=== PATIENT | female | born 1965 | race Caucasian/White ===

== ENCOUNTER 2016-02-23 06:38 | Day surgery (SDC) | payer MEDICARE, OTHER ==
[~2016-02-23] VITALS: Ht 152.4 cm; Wt 79.5 kg
[~2016-02-23 06:38] MED LIST: BUSP5TAB PO; CYCL1TAB29 PO; DICL75TA PO; HYDR25TA5 PO; LORA-392 PO; METH10TA PO; SERO25TA PO; SYMB160A INH; VALS1TAB65 PO; VENTAER INH
[2016-02-23] MEDS ORDERED: LACTATED RINGER'S 1000 ML IV SCH (07:00)
[2016-02-23] MEDS ORDERED: METOPROLOL TARTRATE 25 MG TAB PO PRN (07:00)
[2016-02-23] MEDS ORDERED: ACETAMINOPHEN 1000 MG/100 ML VIAL IV SCH (07:00)
[2016-02-23] MEDS ORDERED: SODIUM CHLORID 0.9% 500 ML IV SCH (07:00)
[2016-02-23] MEDS ORDERED: INSULIN HUMAN REGULAR 1,000 UNITS/10 ML VIAL SQ PRN (07:00)
[2016-02-23 07:08] VITALS: BP 135/68; PULSE 115; RESP 20; TEMP 98.3; O2SAT 95
[2016-02-23 07:16] VITALS: PULSE 94
[2016-02-23] MEDS ORDERED: OXYC-395 PO (07:33)
[2016-02-23] MEDS ORDERED: LIDOCAINE 1%/EPINEPHrine 1:100,000 SOLN 20 ML VIAL ONE (07:36)
[2016-02-23] MEDS ORDERED: BUPIVACAINE HCL PF 0.5% 30 ML VIAL ONE (07:37)
[2016-02-23] MEDS ORDERED: HYDROmorphone HCL PF 2 MG/ML VIAL ONE (08:05)
[2016-02-23] MEDS ORDERED: MIDAZOLAM HCL 2 MG/2 ML VIAL ONE (08:06)
== END 2016-02-23 09:19 | disposition home or self-care (01) ==
LOC: HSDC 06:38
PROVIDERS: ATTEND Surgery
DX: T81.89XA Other complications of procedures, not elsewhere classified, initial encounter (principal); I10 Essential (primary) hypertension; J44.9 Chronic obstructive pulmonary disease, unspecified; J45.909 Unspecified asthma, uncomplicated; Z53.09 Procedure and treatment not carried out because of other contraindication
CPT/HCPCS: G0463; J0131; J1170; J7120; 99211; J2250

== ENCOUNTER → 2016-03-01 | Day surgery (SDC) | payer MEDICARE, OTHER ==
[~2016-03-01] VITALS: Ht 154.9 cm; Wt 80.9 kg
[~2016-03-01] MED LIST changes: +*Lactated Ringer's INJ 1,000 ML ONE; +*MEPERIDINE 25 MG INJ VIAL PERIprocedural Use ONLY ONE; +*morphine SULFATE 8 MG/ML PERIprocedure ONLY ONE; +ACETAMINOPHEN 1000 MG/100 ML VIAL IV SCH; +AUGM875T3 PO; +BUPIVACAINE LIPOSOME PF 1.3% 20 ML VIAL INFIL ONE; +BUPIVACAINE/EPINEPHRINE 0.5% 50 ML VIAL ONE; +HYDROmorphone HCL PF 2 MG/ML VIAL ONE; +INSULIN HUMAN REGULAR 1,000 UNITS/10 ML VIAL SQ PRN; +KETO10 PO; +KETOROLAC TROMETHAMINE 30 MG/ML (IVP) VIAL IV PUSH ONE; +LACTATED RINGER'S 1000 ML IV SCH; +META28.34 PO; +METOPROLOL TARTRATE 25 MG TAB PO PRN; +MIDAZOLAM HCL 2 MG/2 ML VIAL ONE; +MORPHINE SULFATE 4 MG/ML INJ IV PRN; +NEOSTIGMINE 3 MG/3 ML SYR IV ONE; +ONDANSETRON HCL 4 MG/2 ML VIAL IV PRN; +ONDANSETRON HCL 4 MG/2 ML VIAL IV PUSH ONE; +OXYC-395 PO; +PROPOFOL 200 MG/20 ML AMP IV ONE; +SODIUM CHLORID 0.9% 500 ML IV SCH; +SODIUM CHLORIDE 5 ML FLUSH BID IVF SCH; +SODIUM CHLORIDE 5 ML FLUSH PRN IVF; +VITA10002 PO; +VITA500T49 PO; +fentaNYL CITRATE 250 MCG/5 ML AMP ONE; +oxyCODONE/ACETAMINOPHEN 5 MG/325 MG TAB PO PRN
[2016-03-01 07:34] VITALS: BP 117/68; PULSE 88; RESP 18; TEMP 98.6; O2SAT 98
[2016-03-01 09:50] VITALS: PULSE 98
--- NOTE | 2016-03-01 10:04 | PD.OP ---
cc: Magdaleno Philip MD; Jl Hobson MD Operative Report Date of Surgery: Mar 01, 2016 Preoperative Diagnosis: Infected abdominal wall wound Postoperative Diagnosis: Infected abdominal wall wound Procedure: Incision and drainage of abdominal wall wound; placement of wound VAC Anesthesia: General anesthesia Surgeon: Magdaleno Philip Immunologist(s): Dung Figueroa Operation and Findings: Operative findings and procedure: The patient has had a chronic draining wound in the lower portion of her midline incision from previous ruptured:. She has also developed induration but no inflammation around the previous right lower quadrant colostomy site which it healed well after closure of her colostomy. She was found to have a tunneled connection between the 2 points with approximately 25-30 mL's of purulence. The patient was brought to the operating room and after satisfactory general anesthesia was obtained the abdomen was prepped and draped in usual sterile fashion. 0.5% Exparel was used for local anesthesia. An elliptical skin incision was made around the small opening in the lower midline incision. Exploration failed to reveal any superior connection but there was a connection to the indurated area. It was necessary then to open up the previous transverse right lower quadrant wound and a most of the purulence was expressed at that point. The tissue was debrided hemostasis was obtained as completely as possible. Further local anesthesia was instilled. A small wound VAC sponge was cut to the appropriate shape and both wounds were packed with a sponge and a bridge sponge was created to complete the suction. The wound VAC dressing was then placed and secured. The suction was connected with excellent retraction of the wounds. The patient was then awakened and taken from the operating room, in satisfactory condition having tolerated the procedure without problem. Estimated blood loss was less than 20 mL's. The isthmic, sponge, needle counts were reported as being correct 2 at the end of the procedure. Magdaleno Philip MD Mar 01, 2016 10:04
[2016-03-01 10:30] VITALS: PULSE 72
[2016-03-01 11:52] VITALS: BP 105/56; PULSE 90; RESP 18; TEMP 98.4; O2SAT 98
== END | disposition home or self-care (01) ==
LOC: HSDC 06:34
PROVIDERS: ATTEND Surgery
DX: T81.4XXA Infection following a procedure, initial encounter (principal); B95.4 Other streptococcus as the cause of diseases classified elsewhere
CPT/HCPCS: 00400; 10180; 87070; 87185; 87205; C9290; J0131; J1170; J1885; J2175; J2250; J2270; J2405; J2710; J3010; J7120

== ENCOUNTER → 2016-05-26 | Outpatient (CLI) | payer MEDICARE, OTHER ==
[~2016-05-26] MED LIST changes: -*Lactated Ringer's INJ 1,000 ML ONE; -*MEPERIDINE 25 MG INJ VIAL PERIprocedural Use ONLY ONE; -*morphine SULFATE 8 MG/ML PERIprocedure ONLY ONE; -ACETAMINOPHEN 1000 MG/100 ML VIAL IV SCH; -BUPIVACAINE LIPOSOME PF 1.3% 20 ML VIAL INFIL ONE; -BUPIVACAINE/EPINEPHRINE 0.5% 50 ML VIAL ONE; +DIATRIZOATE MEGLUM/DIATRIZOATE SOD 120 ML BTL (for RAD DIAG) RECTAL ONE; -HYDROmorphone HCL PF 2 MG/ML VIAL ONE; -INSULIN HUMAN REGULAR 1,000 UNITS/10 ML VIAL SQ PRN; -KETOROLAC TROMETHAMINE 30 MG/ML (IVP) VIAL IV PUSH ONE; -LACTATED RINGER'S 1000 ML IV SCH; -METOPROLOL TARTRATE 25 MG TAB PO PRN; -MIDAZOLAM HCL 2 MG/2 ML VIAL ONE; -MORPHINE SULFATE 4 MG/ML INJ IV PRN; -NEOSTIGMINE 3 MG/3 ML SYR IV ONE; -ONDANSETRON HCL 4 MG/2 ML VIAL IV PRN; -ONDANSETRON HCL 4 MG/2 ML VIAL IV PUSH ONE; -PROPOFOL 200 MG/20 ML AMP IV ONE; -SODIUM CHLORID 0.9% 500 ML IV SCH; -SODIUM CHLORIDE 5 ML FLUSH BID IVF SCH; -SODIUM CHLORIDE 5 ML FLUSH PRN IVF; -VALS1TAB65 PO; -fentaNYL CITRATE 250 MCG/5 ML AMP ONE; -oxyCODONE/ACETAMINOPHEN 5 MG/325 MG TAB PO PRN
--- NOTE | 2016-05-26 13:59 | RADRPT ---
EXAM DATE/TIME: 05/26/2016 11:04 [facility] COMPARISON: No previous studies available for comparison. INDICATIONS : Evaluate colon for ileostomy reversal. Diverting ileostomy. FLUORO TIME: 1.3 minutes IMAGE COUNT: 13 CONTRAST: 1. G[facility]view MEDICAL HISTORY : Hypertension. SURGICAL HISTORY : Colostomy. Bowel resection with ileostomy. ENCOUNTER: Initial ACUITY: 7 - 11 months PAIN SCORE: 0/10 LOCATION: Abdomen, lower quadrant.. FINDINGS: Diverting ileostomy is present right lower quadrant. Retrograde water-soluble contrast per rectum is delivered to the stoma. The patient has had partial colectomy down to the descending colon. The an astomosis between ileum and colon is smooth without evidence of stricture. There are a few moderate size diverticula in the sigmoid colon. No radiographic of diverticulitis. CONCLUSION: No evidence of stricture or leak. Tr Curiel MD on May 26, 2016 at 13:55 Board Certified Radiologist. This report was verified electronically.
== END ==
LOC: HRAD 10:42
PROVIDERS: ATTEND Surgery
DX: Z43.2 Encounter for attention to ileostomy (principal)
CPT/HCPCS: 74270; Q9963

== ENCOUNTER 2016-06-02 12:32 | Inpatient (IN) | payer MEDICARE, OTHER ==
[~2016-06-02] VITALS: Ht 154.9 cm; Wt 76.0 kg
[~2016-06-02 12:32] MED LIST changes: -AUGM875T3 PO; -DIATRIZOATE MEGLUM/DIATRIZOATE SOD 120 ML BTL (for RAD DIAG) RECTAL ONE; -KETO10 PO; -META28.34 PO; -VITA10002 PO; -VITA500T49 PO
[2016-06-06] MEDS ORDERED: META28.34 PO (15:16)
[2016-06-06] MEDS ORDERED: VITA500T49 PO (15:16)
[2016-06-07 07:16] VITALS: BP 119/77; PULSE 83; RESP 22; TEMP 97.8; O2SAT 97
[2016-06-07] MEDS ORDERED: ceFAZolin 2 GM PREMIX 50 ML IV SCH (07:30)
[2016-06-07] MEDS ORDERED: ACETAMINOPHEN 1000 MG/100 ML VIAL IV SCH ×2 (07:30→14:00)
[2016-06-07] MEDS ORDERED: CHLORHEXIDINE GLUCONATE 2 % 1 PACK (2 CLOTHS) TOPICAL PRN (07:45)
[2016-06-07] MEDS ORDERED: LACTATED RINGER'S 1000 ML IV PRN (07:45)
[2016-06-07] MEDS ORDERED: METOPROLOL TARTRATE 25 MG TAB PO PRN (07:45)
[2016-06-07] MEDS ORDERED: SODIUM CHLORID 0.9% 500 ML IV PRN (07:45)
[2016-06-07] MEDS ORDERED: POVIDONE IODINE 5% (ANTISEPSIS KIT) 4 APPLICATIONS EACH NARE PRN (07:45)
[2016-06-07] MEDS ORDERED: INSULIN HUMAN REGULAR 1,000 UNITS/10 ML VIAL SQ PRN (07:45)
[2016-06-07] MEDS ORDERED: metroNIDAZOLE 500 MG INJ 100 ML IV ONE (08:05)
[2016-06-07] MEDS ORDERED: BUPIVACAINE HCL PF 0.5% 30 ML VIAL NERV BLOCK ONE (09:26)
[2016-06-07] MEDS ORDERED: BUPIVACAINE LIPOSOME PF 1.3% 20 ML VIAL ONE (09:27)
[2016-06-07] MEDS ORDERED: ceFAZolin INJ 1,000 MG VIAL ONE ×2 (10:05→14:59)
[2016-06-07] MEDS ORDERED: DEXAMETHASONE SOD PHOS 4 MG/ML VIAL ONE (10:38)
[2016-06-07] MEDS ORDERED: MIDAZOLAM HCL 2 MG/2 ML VIAL ONE (10:38)
[2016-06-07] MEDS ORDERED: fentaNYL CITRATE 250 MCG/5 ML AMP ONE (10:42)
[2016-06-07] MEDS ORDERED: STERILE WATER FOR INJ 20 ML VIAL ONE (11:05)
[2016-06-07] MEDS ORDERED: NEOSTIGMINE 3 MG/3 ML SYR IV ONE (12:00)
[2016-06-07] MEDS ORDERED: ONDANSETRON HCL 4 MG/2 ML VIAL IV PUSH ONE (12:00)
[2016-06-07] MEDS ORDERED: LACTATED RINGER'S 1000 ML INJ 1,000 ML IV ONE (12:00)
[2016-06-07] MEDS ORDERED: BUPIVACAINE LIPOSOME PF 1.3% 20 ML VIAL NERV BLOCK ONE (12:00)
[2016-06-07] MEDS ORDERED: PROPOFOL 200 MG/20 ML AMP IV ONE (12:00)
[2016-06-07] MEDS ORDERED: *MEPERIDINE 25 MG INJ VIAL PERIprocedural Use ONLY ONE (12:54)
[2016-06-07] MEDS ORDERED: *morphine SULFATE 8 MG/ML PERIprocedure ONLY ONE ×3 (13:00→13:17)
[2016-06-07] MEDS ORDERED: *HYDROmorphone PF 1 MG VIAL PERIprocedural Use ONLY ONE ×3 (13:26→13:48)
[2016-06-07] MEDS ORDERED: DO NOT ADM ANY ANTICOAGULANT DRUGS PRN (13:30)
[2016-06-07] MEDS ORDERED: *ENALAPRILAT 1.25 MG/ML VIAL PERIprocedural Use ONLY ONE ×2 (13:36→15:31)
[2016-06-07] MEDS ORDERED: KETOROLAC TROMETHAMINE 30 MG/ML (IVP) VIAL ONE (13:48)
[2016-06-07] MEDS ORDERED: Post-op Orders (for Pharmacy) MISC XX ONE (14:00)
[2016-06-07] MEDS ORDERED: ACETAMINOPHEN 325 MG TAB PO PRN (14:00)
[2016-06-07] MEDS: KETOROLAC TROMETHAMINE 30 MG/ML (IVP) VIAL IVP SCH (14:00)
[2016-06-07] MEDS ORDERED: METOCLOPRAMIDE HCL 10 MG/2 ML VIAL IV PRN (14:00)
[2016-06-07] MEDS ORDERED: NALOXONE HCL 0.4 MG/ML AMP IV PRN (14:00)
[2016-06-07] MEDS ORDERED: SODIUM CHLORIDE 0.9% FLUSH 10 ML FLUSH IV FLUSH PRN (14:00)
[2016-06-07] MEDS ORDERED: PROMETHAZINE HCL 25 MG SUPP RECTAL PRN (14:00)
--- NOTE | 2016-06-07 14:16 | PD.OP ---
cc: Magdaleno Philip MD; Jl Hobson MD Operative Report Date of Surgery: Jun 07, 2016 Preoperative Diagnosis: Status post diverting ileostomy Postoperative Diagnosis: Status post diverting ileostomy Procedure: Closure of diverting ileostomy Anesthesia: Gen. endotracheal Surgeon: Magdaleno Philip Collective Bargaining Specialist(s): Dayana Carver, MS 3 Operation and Findings: Operative findings: The patient was found to have a normal-appearing ileostomy with slight excoriation in the skin around it. No other abnormalities were noted. She had moderate adhesions to the anterior abdominal wall. Operative procedure: The patient is brought to the operating room and after having undergone placement of a bilateral TA P block. Satisfactory general endotracheal anesthesia was obtained, the abdomen was prepped and draped in the usual sterile fashion. An elliptical skin incision was made around the ileostomy and then carried down to the fascia by cautery, blunt dissection and sharp dissection. Once the fascial borders and then identified the ileostomy was dissected free from the fascial and muscle edges, with care being taken to preserve the bowel. Once all the adhesions had been taken down the ileostomy was elevated further into the wound and other adhesions were taken down. The mesentery was divided near the end of the loop using the cautery as well as 2-0 Vicryl ties. The bowel was then divided on the proximal distal aspect using a DARRYL 75 blue load stapler. The ileostomy was sent for permanent pathology. The ends of the bowel brought into close approximation and the antimesenteric border of the staple lines were resected. A DARRYL 75 blue load stapler was inserted down each limb and then secured and fired creating a functional and end anastomosis. The enterotomy was checked and found to be hemostatic and the staple lines. The enterotomy was then closed with a TA 60 blue load stapler. The mesenteric defect was closed with interrupted 3-0 silk sutures. The new anastomosis was then placed back within the peritoneal cavity without problem. Hemostasis was checked for and found be satisfactory. The fascia was reapproximated with interrupted #1 PDS sutures. The wound was then irrigated and the skin closed with mami. Sterile dressing was placed after which the patient was awakened and taken from the operating room, satisfactory condition, having tolerated procedure without problem. Estimated blood loss was less than 30 mL's. The isthmus, sponge, needle counts were reported as being correct 2 at the end of procedure. Magdaleno Philip MD Jun 07, 2016 14:16
[2016-06-07] MEDS: ACETAMINOPHEN 1000 MG/100 ML VIAL IV SCH ×2 (15:00→20:20)
[2016-06-07] MEDS: PANTOPRAZOLE SODIUM 40 MG VIAL IV SCH (15:00)
[2016-06-07] MEDS: D5-1/2 NS + KCL 20 MEQ INJ 1,000 ML IV SCH ×2 (15:00→23:05)
[2016-06-07] MEDS: HYDROmorphone HCL PF 1 MG/ML VIAL IV PRN ×3 (15:36→17:42)
[2016-06-07] MEDS ORDERED: DIMETHICONE/OXYBENZONE/PADMIATE LIP BALM 4.25 GM TOPICAL ONE (15:52)
[2016-06-07] MEDS ORDERED: ONDANSETRON HCL 4 MG/2 ML VIAL IV PRN (18:00)
[2016-06-07] MEDS ORDERED: ALBUTEROL SULFATE 90 MCG/ACT HFA 18 GM INHALER INH PRN (18:15)
[2016-06-07] MEDS ORDERED: HYDROCHLOROTHIAZIDE 25 MG TAB PO PRN (18:15)
[2016-06-07] MEDS ORDERED: PSYLLIUM FIBER SF/GF 6 GM POWD PKT PO PRN (18:30)
[2016-06-07] MEDS: METHADONE HCL 10 MG TAB PO SCH (18:40)
[2016-06-07] MEDS: busPIRone HCL 5 MG TAB PO SCH (18:40)
[2016-06-07] MEDS: CYCLOBENZAPRINE HCL 10 MG TAB PO SCH (18:40)
[2016-06-07] MEDS: SODIUM CHLORIDE 0.9% FLUSH 10 ML FLUSH IV FLUSH SCH (21:00)
[2016-06-07] MEDS: QUEtiapine FUMARATE 25 MG TAB PO SCH (21:00)
[2016-06-07] MEDS: DICLOFENAC SODIUM 75 MG DELAYED RELEASE TAB PO SCH (21:00)
[2016-06-07] MEDS: BUDESONIDE-FORMOTEROL 160/4.5 MCG INHALER INH SCH (21:00)
[2016-06-07 21:59] VITALS: BP 138/74; PULSE 71; RESP 20; TEMP 99.3; O2SAT 99
[2016-06-08] VITALS (7 sets, daily range): BP systolic 107–142; BP diastolic 58–79; PULSE 88–105; RESP 16–20; TEMP 96.7–98.9; O2SAT 92–97
[2016-06-08] MEDS: KETOROLAC TROMETHAMINE 30 MG/ML (IVP) VIAL IVP SCH ×4 (01:47→21:50)
[2016-06-08] MEDS: ACETAMINOPHEN 1000 MG/100 ML VIAL IV SCH ×2 (01:49→08:46)
[2016-06-08] MEDS: HYDROmorphone HCL PF 1 MG/ML VIAL IV PRN (03:03)
[2016-06-08 05:55] LABS: AUTOMATED NEUTROPHIL # 8.9 TH/MM3 (1.8-7.7); BASOPHIL # 0.1 TH/MM3 (0-0.2); BASOPHIL % 0.6 % (0.0-2.0); EOSINOPHIL % 0.1 % (0.0-4.0); HEMATOCRIT 35.4 % (35.0-46.0); LYMPH % 24.7 % (9.0-44.0); LYMPHOCYTE # 3.3 TH/MM3 (1.0-4.8); MEAN CORPUSCULAR HEMOGLOBIN 26.5 PG (27.0-34.0); MEAN CORPUSCULAR HGB CONC 31.9 % (32.0-36.0); MONO % 8.6 % (0.0-8.0); PLATELET COUNT 257 TH/MM3 (150-450); RED BLOOD COUNT 4.26 MIL/MM3 (4.00-5.30); RED CELL DISTRIBUTION WIDTH 15.9 % (11.6-17.2); WHITE BLOOD COUNT 13.5 TH/MM3 (4.0-11.0)
[2016-06-08 06:04] LABS: HEMO FLAGS AUTO DIFF
[2016-06-08 07:09] LABS: OVALOCYTES 1+ (NORMAL); SCAN/DIFF AUTO DIFF CONFIRMED
[2016-06-08] MEDS: DICLOFENAC SODIUM 75 MG DELAYED RELEASE TAB PO SCH ×2 (08:45→19:52)
[2016-06-08] MEDS: METHADONE HCL 10 MG TAB PO SCH ×3 (08:46→18:11)
[2016-06-08] MEDS: CYANOCOBALAMIN 1,000 MCG TAB PO SCH (08:46)
[2016-06-08] MEDS: SODIUM CHLORIDE 0.9% FLUSH 10 ML FLUSH IV FLUSH SCH ×2 (08:47→21:00)
[2016-06-08] MEDS: BUDESONIDE-FORMOTEROL 160/4.5 MCG INHALER INH SCH ×2 (08:53→21:00)
[2016-06-08] MEDS: D5-1/2 NS + KCL 20 MEQ INJ 1,000 ML IV SCH (12:24)
[2016-06-08] MEDS: PANTOPRAZOLE SODIUM 40 MG VIAL IV SCH (15:50)
--- NOTE | 2016-06-08 17:30 | HHI.PR ---
Subjective Subjective Notes Patient is feeling very well with minimal pain. She feels like she will be passing gas 7. She had one small very minimal amount of stool. She has been walking in the hicks with minimal problem. Objective Vitals/I&O Vital Signs Date Time Temp Pulse Resp B/P Pulse Ox O2 Delivery O2 Flow Rate FiO2 06/08/16 16:00 98.3 88 16 118/67 97 06/08/16 08:24 21 06/07/16 19:30 Nasal Cannula 2 Labs Laboratory Tests Test 06/08/16 04:46 White Blood Count 13.5 Red Blood Count 4.26 Hemoglobin 11.3 Hematocrit 35.4 Mean Corpuscular Volume 83.0 Mean Corpuscular Hemoglobin 26.5 Mean Corpuscular Hemoglobin 31.9 Concent Red Cell Distribution Width 15.9 Platelet Count 257 Mean Platelet Volume 8.6 Neutrophils (%) (Auto) 66.0 Lymphocytes (%) (Auto) 24.7 Monocytes (%) (Auto) 8.6 Eosinophils (%) (Auto) 0.1 Basophils (%) (Auto) 0.6 Neutrophils # (Auto) 8.9 Lymphocytes # (Auto) 3.3 Monocytes # (Auto) 1.2 Eosinophils # (Auto) 0.0 Basophils # (Auto) 0.1 CBC Comment AUTO DIFF Differential Comment AUTO DIFF CONFIRMED Ovalocytes 1+ Sodium Level 140 Potassium Level 4.0 Chloride Level 107 Carbon Dioxide Level 26.0 Anion Gap 7 Blood Urea Nitrogen 10 Creatinine 0.89 Estimat Glomerular Filtration 67 Rate Random Glucose 106 Calcium Level 8.5 Cardiovascular: Regular Lungs: Clear Abdomen: Non-distended, Post-op tenderness Extremities: No edema A/P Assessment and Plan Impression: Postop day #1 status post closure of ileostomy. She is doing extremely well with no problems to this point. Plan: IV fluids will be decreased; her Watt catheter has been removed; she will be placed on a full liquid diet. Magdaleno Philip MD Jun 08, 2016 17:30
[2016-06-08] MEDS: busPIRone HCL 5 MG TAB PO SCH (19:50)
[2016-06-08] MEDS: CYCLOBENZAPRINE HCL 10 MG TAB PO SCH (19:52)
[2016-06-08] MEDS: QUEtiapine FUMARATE 25 MG TAB PO SCH (19:53)
[2016-06-08] MEDS: LORazepam 0.5 MG TAB PO PRN (21:50)
[2016-06-09] VITALS: BP 140/80; PULSE 84; RESP 20; TEMP 97; O2SAT 95
[2016-06-09] MEDS: HYDROmorphone HCL PF 1 MG/ML VIAL IV PRN ×2 (01:39→17:02)
[2016-06-09] MEDS: KETOROLAC TROMETHAMINE 30 MG/ML (IVP) VIAL IVP SCH ×4 (02:54→20:34)
[2016-06-09] MEDS: D5-1/2 NS + KCL 20 MEQ INJ 1,000 ML IV SCH ×2 (06:21→13:51)
[2016-06-09 08:00] VITALS: BP 110/68; PULSE 79; RESP 20; TEMP 97.1; O2SAT 99
[2016-06-09] MEDS: SODIUM CHLORIDE 0.9% FLUSH 10 ML FLUSH IV FLUSH SCH ×2 (08:13→20:34)
[2016-06-09] MEDS: BUDESONIDE-FORMOTEROL 160/4.5 MCG INHALER INH SCH ×2 (08:14→20:35)
[2016-06-09] MEDS: DICLOFENAC SODIUM 75 MG DELAYED RELEASE TAB PO SCH ×2 (08:16→20:33)
[2016-06-09] MEDS: METHADONE HCL 10 MG TAB PO SCH ×3 (08:16→17:39)
[2016-06-09] MEDS: CYANOCOBALAMIN 1,000 MCG TAB PO SCH (08:16)
[2016-06-09 12:00] VITALS: BP 126/86; PULSE 101; RESP 20; TEMP 97.1; O2SAT 98
--- NOTE | 2016-06-09 12:04 | HHI.PR ---
Subjective Subjective Notes The patient is passing a large amount of flatus. She has not yet had a bowel movement. She is tolerating full liquid diet without nausea or vomiting. Her pain is well controlled. Objective Vitals/I&O Vital Signs Date Time Temp Pulse Resp B/P Pulse Ox O2 Delivery O2 Flow Rate FiO2 06/09/16 08:00 97.1 79 20 110/68 99 06/08/16 08:24 21 06/07/16 19:30 Nasal Cannula 2 Cardiovascular: Regular Lungs: Clear Abdomen: Non-distended, Non-tender, Post-op tenderness, BS normal A/P Assessment and Plan Impression: Postop day #2 status post closure of ileostomy. She is doing extremely well with no problems to this point. Plan: Her IV will be saline locked. She'll be placed on a regular diet. She has been encouraged to ambulate even more. Magdaleno Philip MD Jun 09, 2016 12:04
[2016-06-09] MEDS: PANTOPRAZOLE SODIUM 40 MG VIAL IV SCH (13:51)
[2016-06-09 16:00] VITALS: BP 130/60; PULSE 103; RESP 19; TEMP 97.8; O2SAT 96
[2016-06-09 20:00] VITALS: BP 115/65; PULSE 102; RESP 18; TEMP 96.7; O2SAT 96
[2016-06-09] MEDS: QUEtiapine FUMARATE 25 MG TAB PO SCH (20:33)
[2016-06-09] MEDS: CYCLOBENZAPRINE HCL 10 MG TAB PO SCH (20:33)
[2016-06-09] MEDS: busPIRone HCL 5 MG TAB PO SCH (20:34)
[2016-06-09] MEDS: LORazepam 0.5 MG TAB PO PRN (22:27)
[2016-06-10 00:03] VITALS: BP 115/56; PULSE 92; RESP 18; TEMP 96.5; O2SAT 98
[2016-06-10] MEDS: KETOROLAC TROMETHAMINE 30 MG/ML (IVP) VIAL IVP SCH ×3 (02:44→14:12)
[2016-06-10] MEDS: D5-1/2 NS + KCL 20 MEQ INJ 1,000 ML IV SCH (02:48)
[2016-06-10 07:59] VITALS: BP 126/60; PULSE 93; RESP 16; TEMP 96.6; O2SAT 95
[2016-06-10] MEDS: CYANOCOBALAMIN 1,000 MCG TAB PO SCH (08:24)
[2016-06-10] MEDS: DICLOFENAC SODIUM 75 MG DELAYED RELEASE TAB PO SCH (08:24)
[2016-06-10] MEDS: METHADONE HCL 10 MG TAB PO SCH ×2 (08:24→14:10)
[2016-06-10] MEDS: SODIUM CHLORIDE 0.9% FLUSH 10 ML FLUSH IV FLUSH SCH (08:29)
[2016-06-10] MEDS: BUDESONIDE-FORMOTEROL 160/4.5 MCG INHALER INH SCH (08:30)
[2016-06-10] MEDS: HYDROmorphone HCL PF 1 MG/ML VIAL IV PRN (10:55)
[2016-06-10 12:00] VITALS: BP 128/69; PULSE 102; RESP 17; TEMP 97.4; O2SAT 98
[2016-06-10] MEDS: PANTOPRAZOLE SODIUM 40 MG VIAL IV SCH (14:12)
--- NOTE | 2016-06-10 15:09 | HHI.PR ---
Subjective Subjective Notes The patient continues to feel well. She is tolerating a regular diet without problem. Her pain is well controlled and is minimal at this point. She has had several relatively loose bowel movements although not diarrhea. She continues to pass large amounts of flatus. She is ready and anxious to go home. Objective Vitals/I&O Vital Signs Date Time Temp Pulse Resp B/P Pulse Ox O2 Delivery O2 Flow Rate FiO2 06/10/16 12:00 97.4 102 17 128/69 98 06/08/16 08:24 21 06/07/16 19:30 Nasal Cannula 2 Cardiovascular: Regular Lungs: Clear Abdomen: Non-distended, Post-op tenderness Extremities: No edema Wound Wound : Wound Location: Abdomen Appearance: Clean & Dry A/P Assessment and Plan Impression: Postop day #3 status post closure of ileostomy. She is tolerating a regular diet and having minimally formed bowel movements. She has had no complications to her surgery. Plan: Discharge today. I'll see her back in the office in 10-14 days. She understands she should call the office should she have any increasing abdominal pain, nausea and vomiting, or erythema of the wound. Magdaleno Philip MD Jun 10, 2016 15:09
--- NOTE | 2016-06-10 15:14 | HHI.DS ---
Discharge Summary Admission Date Jun 07, 2016 at 06:59 Discharge Date: Jun 10, 2016 Admitting Diagnosis Status post ileostomy Procedures 06/07/2016: Reversal of ileostomy Brief History The patient is a 50-year-old lady who proximal 7 or 8 months ago underwent emergency exploratory laparotomy for incarcerated and strangulated descending colon which was found to be in a relatively small abdominal wall hernia where previous colostomy had been. She also had a perforation of her cecum. She subsequently underwent extensive colectomy with a primary ileocolic anastomosis in the descending colon. A diverting loop ileostomy was brought out for protection. She was admitted this time for elective closure of the ileostomy. CBC/BMP: 06/08/16 0446 06/08/16 0446 Significant Findings Laboratory Tests Test 06/08/16 04:46 White Blood Count 13.5 TH/MM3 (4.0-11.0) Hemoglobin 11.3 GM/DL (11.6-15.3) Mean Corpuscular Hemoglobin 26.5 PG (27.0-34.0) Mean Corpuscular Hemoglobin 31.9 % Concent (32.0-36.0) Monocytes (%) (Auto) 8.6 % (0.0-8.0) Neutrophils # (Auto) 8.9 TH/MM3 (1.8-7.7) Monocytes # (Auto) 1.2 TH/MM3 (0-0.9) Ovalocytes 1+ (NORMAL) Estimat Glomerular Filtration 67 ML/MIN (>89) Rate PE at Discharge Physical exam and discharge was completely benign with totally benign abdominal exam and a wound that was healing well without evidence of infection. Hospital Course The patient underwent a non-complicated procedure and returned quickly to normal activities within 24-36 hours. She was begun on a clear liquid diet the day after surgery and advanced to full liquids the second day and later to a regular diet. She was doing well enough to be discharged on the third day as she was tolerating a regular diet, having bowel movements, was seen to be afebrile with otherwise normal vital signs and a benign exam. Pt Condition on Discharge: Good Discharge Disposition: Discharge Home Discharge Instructions DIET: Follow Instructions for: As Tolerated, No Restrictions Activities you can perform: Regular-No Restrictions Magdaleno Philip MD Jun 10, 2016 15:14
== END 2016-06-10 16:37 | disposition home or self-care (01) | DRG 331 ==
LOC: HSDI 06-07 06:59 → N07A 06-07 20:33
PROVIDERS: ADMIT Surgery; ATTEND Surgery
PROC: 0DQB0ZZ Repair Ileum, Open Approach (ICD-10-PCS; principal; 2016-06-07 10:41)
DX: Z43.2 Encounter for attention to ileostomy (principal); K66.0 Peritoneal adhesions (postprocedural) (postinfection)
CPT/HCPCS: 80048; 85025; 88304; 88305; 94150; C9113; C9290; J0131; J0690; J1100; J1170; J1885; J2175; J2250; J2270; J2405; J2710; J3010; J3480; J7120

== ENCOUNTER 2016-06-17 09:58 | Inpatient (IN) | payer MEDICARE, OTHER ==
[~2016-06-17] VITALS: Ht 154.9 cm; Wt 75.0 kg
[~2016-06-17 09:58] MED LIST changes: +META28.34 PO; +VITA500T49 PO
[2016-06-17 10:00] VITALS: BP 108/54; PULSE 130; RESP 20; TEMP 97.7; O2SAT 96
[2016-06-17] MEDS ORDERED: SODIUM CHLOR 0.9% 1000 ML INJ 1,000 ML IV SCH (10:25)
[2016-06-17] MEDS ORDERED: ONDANSETRON HCL 4 MG/2 ML VIAL IVP ONE (10:30)
[2016-06-17] MEDS ORDERED: SODIUM CHLORIDE 0.9% FLUSH 10 ML FLUSH IV FLUSH PRN ×2 (10:30→15:45)
--- NOTE | 2016-06-17 10:51 | PD ---
HPI Chief Complaint: Abdominal Pain Time Seen by Provider: 10:16 Travel History International Travel<30 days: No Contact w/Intl Traveler<30days: No Traveled to known affect area: No History of Present Illness HPI So 50-year-old woman who presents to the emergency department complaining of abdominal discomfort and vomiting. She is a history of perforated colon related to colitis and underwent an exploratory laparoscopy October 21, 2015. She had trouble with abdominal wall wounds following this. She had an ileostomy. She was doing relatively well and had her ileostomy taken down June [address] rojas. Following this she did well in the hospital but then reportedly was having trouble at home. She describes feelings of bloating early -stage high 80 and nausea and queasiness. She saw Dr. rojas yesterday and he ordered lab work. She then vomited one time last night. She spoke to Dr. rojas this morning who reported that her lap shouldn't dehydration recommend she come to the emergency department for imaging and labs. Of note, patient had a perforated colon one time in the past and had a colostomy in the remote past as well. History Past Medical History Narrative Medical COPD Morbid obesity Hypertension Osteoarthritis Chronic pain, on chronic opiates Menopausal: Yes Social History Alcohol Use: No (hx 3-4 BEERS DAILY , hasn't drank in two months) Tobacco Use: No Allergies-Medications (Allergen,Severity, Reaction): Coded Allergies: No Known Allergies (Unverified , 06/07/16) Reported Meds & Prescriptions Reported Meds & Active Scripts Active Reported Ketorolac (Ketorolac Tromethamine) 10 Mg Tab 10 Mg PO QID 5 Days Vitamin B-12 (Cyanocobalamin) 1,000 Mcg Tab 3,000 Mcg PO DAILY Metamucil Smooth Texture (Psyllium Hydrophilic Mucilloid) 28.3 % Pow 1 Scoop PO BID PRN 1 rounded TEASPOON in 8 oz of liquid at the first sign of irregularity. Oxycodone (Oxycodone HCl) 10 Mg Tab 10 Mg PO TID Hydrochlorothiazide 25 Mg Tab 25 Mg PO PRN Ventolin Hfa 18 GM Inh (Albuterol Sulfate) 90 Mcg/Act Aer 2 Puff INH Q4-6H PRN Symbicort Inh (Budesonide/Formoterol Fumarate) 160-4.5 Mcg/Act Aero 2 Puff INH Q12HR Buspirone (Buspirone HCl) 5 Mg Tab 5 Mg PO HS Flexeril (Cyclobenzaprine HCl) 10 Mg Tab 10 Mg PO HS Diclofenac Sodium DR (Diclofenac Sodium) 75 Mg Tabdr 75 Mg PO BID Ativan (Lorazepam) 0.5 Mg Tab 0.5 Mg PO HS PRN Methadone (Methadone HCl) 10 Mg Tab 20 Mg PO TID Seroquel (Quetiapine Fumarate) 25 Mg Tab 25-50 Mg PO HS Review of Systems Except as stated in HPI: all other systems reviewed are Neg Physical Exam Narrative GENERAL: 50-year-old woman, no acute distress. SKIN: Focused skin assessment warm/dry. HEAD: Atraumatic. Normocephalic. EYES: Pupils equal and round. No scleral icterus. No injection or drainage. ENT: No nasal bleeding or discharge. Mucous membranes pink and moist. NECK: Trachea midline. No JVD. CARDIOVASCULAR: Regular rate and rhythm. No murmur appreciated. RESPIRATORY: No accessory muscle use. Clear to auscultation. Breath sounds equal bilaterally. GASTROINTESTINAL: Abdomen is obese. There is multiple surgical scars including a midline scar in the left four-quadrant scars that are well-healed. On the right side there is a horizontal scar, approximately 10-15 cm, with mami in place, that will approximated. There is no charring erythema and redness. There is firmness to the abdomen of 1 of the most recent incision with some palpable lumpy firmness of these Are the abdomen. Not particularly tender. The abdomen itself is not overtly distended. Bowel sounds are nearly absent. MUSCULOSKELETAL: No obvious deformities. No edema. NEUROLOGICAL: Awake and alert. No obvious cranial nerve deficits. Motor grossly within normal limits. Normal speech. PSYCHIATRIC: Appropriate mood and affect; insight and judgment normal. Data Data Last Documented VS Vital Signs Date Time Temp Pulse Resp B/P Pulse Ox O2 Delivery O2 Flow Rate FiO2 06/17/16 11:49 22 95 Room Air 06/17/16 10:00 97.7 130 108/54 Orders Complete Blood Count With Diff (06/17/16 10:25) Comprehensive Metabolic Panel (06/17/16 10:25) Lipase (06/17/16 10:25) Urinalysis - C+S If Indicated (06/17/16 10:25) Iv Access Insert/Monitor (06/17/16 10:25) Ecg Monitoring (06/17/16 10:25) Oximetry (06/17/16 10:25) Ondansetron Inj (Zofran Inj) (06/17/16 10:30) Sodium Chlor 0.9% 1000 Ml Inj (Ns 1000 M (06/17/16 10:25) Sodium Chloride 0.9% Flush (Ns Flush) (06/17/16 10:30) Ct Abd/Pel W/O Iv Contrast (06/17/16 ) Oral Contrast - Adult (06/17/16 11:00) Diatrizoate Liq ( Gastronathalia Liq) (06/17/16 11:25) Admit Order (Ed Use Only) (06/17/16 ) Labs Laboratory Tests Test 06/17/16 10:35 White Blood Count 21.5 TH/MM3 Red Blood Count 4.20 MIL/MM3 Hemoglobin 11.8 GM/DL Hematocrit 33.9 % Mean Corpuscular Volume 80.6 FL Mean Corpuscular Hemoglobin 28.0 PG Mean Corpuscular Hemoglobin 34.7 % Concent Red Cell Distribution Width 14.9 % Platelet Count 384 TH/MM3 Mean Platelet Volume 7.5 FL Neutrophils (%) (Auto) 85.9 % Lymphocytes (%) (Auto) 4.5 % Monocytes (%) (Auto) 8.7 % Eosinophils (%) (Auto) 0.6 % Basophils (%) (Auto) 0.3 % Neutrophils # (Auto) 18.4 TH/MM3 Lymphocytes # (Auto) 1.0 TH/MM3 Monocytes # (Auto) 1.9 TH/MM3 Eosinophils # (Auto) 0.1 TH/MM3 Basophils # (Auto) 0.1 TH/MM3 CBC Comment AUTO DIFF Differential Total Cells 100 Counted Neutrophils % (Manual) 22 % Band Neutrophils % 58 % Lymphocytes % 3 % Monocytes % 12 % Eosinophils % 1 % Neutrophils # (Manual) 18.1 TH/MM3 Metamyelocytes 4 % Differential Comment FINAL DIFF MANUAL Toxic Vacuolation PRESENT Dohle Bodies PRESENT Platelet Estimate NORMAL Platelet Morphology Comment NORMAL Red Cell Morphology Comment NORMAL Sodium Level 128 MEQ/L Potassium Level 3.1 MEQ/L Chloride Level 86 MEQ/L Carbon Dioxide Level 32.8 MEQ/L Anion Gap 9 MEQ/L Blood Urea Nitrogen 38 MG/DL Creatinine 3.49 MG/DL Estimat Glomerular Filtration 14 ML/MIN Rate Random Glucose 83 MG/DL Calcium Level 8.8 MG/DL Total Bilirubin 1.2 MG/DL Aspartate Amino Transf 20 U/L (AST/SGOT) Alanine Aminotransferase 20 U/L (ALT/SGPT) Alkaline Phosphatase 125 U/L Total Protein 7.2 GM/DL Albumin 2.6 GM/DL Lipase 32 U/L [facility] Medical Decision Making Medical Screen Exam Complete: Yes Emergency Medical Condition: Yes Interpretation(s) LABS: CBC is remarkable for white count 21,000, 58% bands CMP elevated BUN and creatinine, 3.49 Lipase normal UA unremarkable Differential Diagnosis Obstruction, infection, internal hernia, other Narrative Course Medical decision making INITIAL: 50-year-old woman who presents to the emergency department 10 days post surgery for an ileostomy takedown. She's having fullness. She has palpable firm mass to could suggest an internal hernia or obstruction at the hernia site. She looks overall well. Bowel sounds are diminished. We'll check labs, CT imaging, discussed with Dr. Rojas, jayne. Garrett Lopez MD Jun 17, 2016 10:51
[2016-06-17 11:25] LABS: AUTOMATED NEUTROPHIL # 18.4 TH/MM3 (1.8-7.7); BASOPHIL # 0.1 TH/MM3 (0-0.2); BASOPHIL % 0.3 % (0.0-2.0); EOSINOPHIL # 0.1 TH/MM3 (0-0.4); EOSINOPHIL % 0.6 % (0.0-4.0); HEMATOCRIT 33.9 % (35.0-46.0); LYMPH % 4.5 % (9.0-44.0); MEAN CELL VOLUME 80.6 FL (80.0-100.0); MEAN CORPUSCULAR HGB CONC 34.7 % (32.0-36.0); MONO % 8.7 % (0.0-8.0); NEUT % 85.9 % (16.0-70.0); PLATELET COUNT 384 TH/MM3 (150-450); RED CELL DISTRIBUTION WIDTH 14.9 % (11.6-17.2); WHITE BLOOD COUNT 21.5 TH/MM3 (4.0-11.0)
[2016-06-17] MEDS ORDERED: DIATRIZOATE MEGLUM/DIATRIZOATE SOD 9 ML CUP ONE (11:25)
[2016-06-17 11:26] LABS: HEMO FLAGS AUTO DIFF
[2016-06-17 11:49] VITALS: RESP 22; O2SAT 95
[2016-06-17 11:50] LABS: ANION GAP 9 MEQ/L (5-15); AST (GOT) 20 U/L (15-37); BICARBONATE 32.8 MEQ/L (21.0-32.0); BLOOD UREA NITROGEN 38 MG/DL (7-18); CHLORIDE 86 MEQ/L (98-107); GLOMERULAR FILTRATION RATE 14 ML/MIN (>89); POTASSIUM 3.1 MEQ/L (3.5-5.1); SODIUM (NA) 128 MEQ/L (136-145)
[2016-06-17 11:51] LABS: BANDS 58 % (0-6); EOSINOPHILS 1 % (0-4); METAMYELOCYTES 4 % (0-1); NEUTROPHIL # MANUAL DIFF 18.1 TH/MM3 (1.8-7.7); POLYS (SEG NEUTROPHILS) 22 % (16-70); WBC DIFF SAMPLE 100
[2016-06-17 11:52] LABS: DOHLE BODIES PRESENT (NONE SEEN); PLATELET ESTIMATE SMEAR NORMAL (NORMAL); PLATELET MORPHOLOGY NORMAL (NORMAL); SCAN/DIFF FINAL DIFF MANUAL; TOXIC VACUOLATION PRESENT (NONE SEEN)
[2016-06-17 11:54] LABS: ALKALINE PHOSPHATASE 125 U/L (45-117); ALT (GPT) 20 U/L (10-53); TOTAL BILIRUBIN ADULT 1.2 MG/DL (0.2-1.0)
[2016-06-17] MEDS ORDERED: VITA10002 PO (12:09)
[2016-06-17] MEDS ORDERED: KETO10 PO (12:09)
--- NOTE | 2016-06-17 13:38 | RADRPT ---
EXAM DATE/TIME: 06/17/2016 13:15 [facility] COMPARISON: CT ABDOMEN & PELVIS W/O CONTRAST, November 10, 2015, 12:35. INDICATIONS : Abdominal pain and vomiting 10 days status post ileostomy takedown. ORAL CONTRAST: Prescribed oral contrast ingested. RADIATION DOSE: 9.96 CTDIvol (mGy) MEDICAL HISTORY : Hypertension. Ruptured colon SURGICAL HISTORY : Colectomy, ileostomy ENCOUNTER: Initial ACUITY: 1 week PAIN SCALE: 6/10 LOCATION: abdomen TECHNIQUE: Volumetric scanning of the abdomen and pelvis was performed. Using automated exposure control and ad justment of the mA and/or kV according to patient size, radiation dose was kept as low as reasonably achievable to obtain optimal diagnostic quality images. FINDINGS: LOWER LUNGS: The visualized lower lungs are clear. LIVER: Homogeneous density without lesion. There is no dilation of the biliary tree. Multiple small calcifi ed gallstones are again noted. SPLEEN: Normal size without lesion. PANCREAS: Within normal limits. KIDNEYS: Normal in size and shape. There is no solid mass, stone, or hydronephrosis. A simple cyst is again n oted in the right kidney. ADRENAL GLANDS: Within normal limits. VASCULAR: There is no aortic aneurysm. BOWEL/MESENTERY: The patient is status post takedown of the ileostomy with a low density fluid collection in the subcu taneous fat over the right abdominal wall measuring up to 9.1 x 2.8 cm. There are adjacent surgical s kin mami. The patient is status post partial bowel resection with multiple anastomotic mami. Th ere is an abnormal bowel gas pattern now noted with multiple loops of mildly dilated small bowel and dilated colon with multiple air-fluid levels. There is a small amount of free air along the anterior abdominal wall. ABDOMINAL WALL: Within normal limits. RETROPERITONEUM: There is no lymphadenopathy. BLADDER: No wall thickening or mass. REPRODUCTIVE: Within normal limits. INGUINAL: There is no lymphadenopathy or hernia. MUSCULOSKELETAL: Status post left hip arthroplasty. CONCLUSION: 1. Abnormal bowel gas pattern now noted of concern for obstruction. There is a small amount of free a ir which may be due to the recent surgery. There are multiple anastomotic mami status post partial bowel resection. 2. Status post takedown of the previously noted ileostomy with apparent surrounding in the subcutaneo us fat over the right abdominal wall. 3. Multiple small calcified gallstones again noted. Cleve King MD on June 17, 2016 at 13:23 Board Certified Radiologist. This report was verified electronically.
[2016-06-17 15:23] LABS: BACTERIA, URINE RARE /hpf; BLOOD, URINE SMALL (NEG); COMMENT (UR) CULT NOT INDICATED; CULTURE IF INDICATED CULT NOT INDICATED; GLUCOSE,URINE NEG (NEG); HYALINE CAST, URINE 41 /lpf (RARE); KETONE, URINE NEG (NEG); NITRITE,URINE NEG (NEG); SQUAMOUS EPITHELIAL CELL URINE 14 /hpf (0-5); TRANSITIONAL EPI CELLS, URINE 1 /hpf
[2016-06-17 15:30] LABS: URINE COLOR DARK-BROWN (YELLW/STRAW)
[2016-06-17] MEDS: D5-1/2 NS + KCL 20 MEQ INJ 1,000 ML IV SCH (15:36)
[2016-06-17] MEDS ORDERED: NALOXONE HCL 0.4 MG/ML AMP IV PRN (15:45)
[2016-06-17] MEDS ORDERED: ONDANSETRON HCL 4 MG/2 ML VIAL IV PRN (15:45)
[2016-06-17] MEDS ORDERED: Post-op Orders (for Pharmacy) MISC XX ONE (15:45)
--- NOTE | 2016-06-17 15:59 | HHI.HP ---
General Surgery H&P History of present illness: Patient underwent closure of an ileostomy approximately 10 days ago. She admitted doing well until the last several days when she began developing occasional nausea after eating. She was able tolerate most things that occasionally would vomit after a meal. She is had no fever although she's had occasional chills. She states that she just doesn't feel quite right. She was seen in the office yesterday and laps were ordered which showed an elevated white blood count and abnormal electrolytes as well as what appeared to be an ileus versus early small partial small bowel obstruction identified and upright abdominal film. She was sent to the emergency room today and were further laboratory work and CT scan was were obtained. She is admitted at this time as below. Past medical history is well documented in previous chart as are her medications and allergies. Family history, social history, and review of systems are as in her previous charts Examination: Vital Signs Date Time Temp Pulse Resp B/P Pulse Ox O2 Delivery O2 Flow Rate FiO2 06/17/16 11:49 22 95 Room Air 06/17/16 10:00 97.7 130 20 108/54 96 Room Air GENERAL: The patient appears to be minimally ill at this point. She appears to be in no acute distress whatsoever. HEENT: Unremarkable LUNGS: Clear to percussion and auscultation HEART: Regular rate and rhythm ABDOMEN: Patient's abdomen is moderately to significantly distended compared to previous exams. The incision in the right mid abdomen is well healed with no evidence of erythema. There is a palpable density superior to the incision consistent with a subcutaneous fluid collection but it is not tender to palpation. The remainder of her abdomen is completely soft with no tenderness, guarding, or rebound. EXTREMITIES: No cyanosis clubbing or edema peripheral. Pulses are 2+ and equal bilaterally. NEURO: Grossly intact. Laboratory Tests Test 06/17/16 06/17/16 10:35 14:30 White Blood Count 21.5 TH/MM3 Red Blood Count 4.20 MIL/MM3 Hemoglobin 11.8 GM/DL Hematocrit 33.9 % Mean Corpuscular Volume 80.6 FL Mean Corpuscular Hemoglobin 28.0 PG Mean Corpuscular Hemoglobin 34.7 % Concent Red Cell Distribution Width 14.9 % Platelet Count 384 TH/MM3 Mean Platelet Volume 7.5 FL Neutrophils (%) (Auto) 85.9 % Lymphocytes (%) (Auto) 4.5 % Monocytes (%) (Auto) 8.7 % Eosinophils (%) (Auto) 0.6 % Basophils (%) (Auto) 0.3 % Neutrophils # (Auto) 18.4 TH/MM3 Lymphocytes # (Auto) 1.0 TH/MM3 Monocytes # (Auto) 1.9 TH/MM3 Eosinophils # (Auto) 0.1 TH/MM3 Basophils # (Auto) 0.1 TH/MM3 CBC Comment AUTO DIFF Differential Total Cells 100 Counted Neutrophils % (Manual) 22 % Band Neutrophils % 58 % Lymphocytes % 3 % Monocytes % 12 % Eosinophils % 1 % Neutrophils # (Manual) 18.1 TH/MM3 Metamyelocytes 4 % Differential Comment FINAL DIFF MANUAL Toxic Vacuolation PRESENT Dohle Bodies PRESENT Platelet Estimate NORMAL Platelet Morphology Comment NORMAL Red Cell Morphology Comment NORMAL Sodium Level 128 MEQ/L Potassium Level 3.1 MEQ/L Chloride Level 86 MEQ/L Carbon Dioxide Level 32.8 MEQ/L Anion Gap 9 MEQ/L Blood Urea Nitrogen 38 MG/DL Creatinine 3.49 MG/DL Estimat Glomerular Filtration 14 ML/MIN Rate Random Glucose 83 MG/DL Calcium Level 8.8 MG/DL Total Bilirubin 1.2 MG/DL Aspartate Amino Transf 20 U/L (AST/SGOT) Alanine Aminotransferase 20 U/L (ALT/SGPT) Alkaline Phosphatase 125 U/L Total Protein 7.2 GM/DL Albumin 2.6 GM/DL Lipase 32 U/L Urine Color DARK-BROWN Urine Turbidity CLOUDY Urine pH 5.0 Urine Specific [place] 1.023 Urine Protein 30 mg/dL Urine Glucose (UA) NEG mg/dL Urine Ketones NEG mg/dL Urine Occult Blood SMALL Urine Nitrite NEG Urine Bilirubin SMALL Urine Urobilinogen 2.0 MG/DL Urine Leukocyte Esterase MOD Urine RBC 21 /hpf Urine WBC 2 /hpf Urine Squamous Epithelial 14 /hpf Cells Urine Transitional Epithelial 1 /hpf Cells Urine Bacteria RARE /hpf Urine Hyaline Casts 41 /lpf Microscopic Urinalysis Comment CULT NOT INDICATED Last 24 hours Impressions Abdomen/Pelvis CT 06/17/16 0000 Signed Impressions: Service Date/Time: Friday, June 17, 2016 13:15 - CONCLUSION: 1. Abnormal bowel gas pattern now noted of concern for obstruction. There is a small amount of free air which may be due to the recent surgery. There are multiple anastomotic mami status post partial bowel resection. 2. Status post takedown of the previously noted ileostomy with apparent surrounding in the subcutaneous fat over the right abdominal wall. 3. Multiple small calcified gallstones again noted. Cleve King MD Impression: Status post closure of ileostomy 10 days ago. Overall she appears to be hemodynamically stable without gross embarrassment, however with an elevated white blood count with significant left shift and CT findings consistent with a possible small leak without intraperitoneal contamination, she will be admitted to the hospital. Plan: Patient be placed on nasogastric suction, increased intravenous fluid and strict I and O's. Repeat laboratory work with a CBC, BMP, and LFTs have been ordered for the morning. She will undergo repeat CT scanning in the morning with increased oral contrast as per my discussion with Dr. Tobias Yang. She may be developing a small leak or possibly the beginning of a fistula but nothing is declared itself at this point given her clinical condition and lack of other significant physical exam findings. Magdaleno Philip MD Jun 17, 2016 15:59
[2016-06-17] MEDS: metroNIDAZOLE 500 MG INJ 100 ML IV SCH ×2 (16:00→20:38)
[2016-06-17 16:44] VITALS: BP 102/57; PULSE 108; RESP 18; O2SAT 95
[2016-06-17] MEDS: LEVOFLOXACIN 500 MG PREMIX INJ 100 ML IV SCH (17:00)
[2016-06-17] MEDS: METHADONE HCL 10 MG TAB PO SCH (18:09)
[2016-06-17] MEDS: ACETAMINOPHEN 1000 MG/100 ML VIAL IV SCH ×2 (18:09→22:00)
[2016-06-17] MEDS: PANTOPRAZOLE SODIUM 40 MG VIAL IV SCH (18:09)
[2016-06-17 20:00] VITALS: BP 90/50; PULSE 109; RESP 20; TEMP 98.5; O2SAT 96
[2016-06-17] MEDS: LORazepam 2 MG/ML VIAL IV PUSH PRN (20:39)
[2016-06-17] MEDS: SODIUM CHLORIDE 0.9% FLUSH 10 ML FLUSH IV FLUSH SCH (21:00)
[2016-06-17] MEDS: oxyCODONE HCL 10 MG CONTROLLED RELEASE TAB PO SCH (22:00)
[2016-06-17] MEDS ORDERED: LACTATED RINGER'S 1000 ML INJ 1,000 ML IV PRN (22:30)
[2016-06-18] VITALS (14 sets, daily range): BP systolic 70–129; BP diastolic 40–84; PULSE 95–112; RESP 14–23; TEMP 96.1–97.9; O2SAT 94–98
[2016-06-18] MEDS: D5-1/2 NS + KCL 20 MEQ INJ 1,000 ML IV SCH (02:50)
[2016-06-18] MEDS: ACETAMINOPHEN 1000 MG/100 ML VIAL IV SCH ×2 (04:32→10:00)
[2016-06-18] MEDS: metroNIDAZOLE 500 MG INJ 100 ML IV SCH ×4 (04:32→22:00)
[2016-06-18] MEDS ORDERED: LACTATED RINGER'S 1000 ML INJ 1,000 ML IV PRN (05:45)
[2016-06-18] MEDS: oxyCODONE HCL 10 MG CONTROLLED RELEASE TAB PO SCH ×2 (06:00→14:00)
[2016-06-18 07:02] LABS: AUTOMATED NEUTROPHIL # 14.6 TH/MM3 (1.8-7.7); BASOPHIL % 0.2 % (0.0-2.0); EOSINOPHIL # 0.2 TH/MM3 (0-0.4); EOSINOPHIL % 1.2 % (0.0-4.0); HEMATOCRIT 28.1 % (35.0-46.0); LYMPH % 6.7 % (9.0-44.0); LYMPHOCYTE # 1.2 TH/MM3 (1.0-4.8); MEAN CORPUSCULAR HEMOGLOBIN 27.2 PG (27.0-34.0); MEAN CORPUSCULAR HGB CONC 33.6 % (32.0-36.0); MONO % 6.3 % (0.0-8.0); NEUT % 85.6 % (16.0-70.0); PLATELET COUNT 277 TH/MM3 (150-450); RED BLOOD COUNT 3.47 MIL/MM3 (4.00-5.30); RED CELL DISTRIBUTION WIDTH 14.7 % (11.6-17.2); WHITE BLOOD COUNT 17.1 TH/MM3 (4.0-11.0)
[2016-06-18 07:19] LABS: BICARBONATE 29.5 MEQ/L (21.0-32.0); INDIRECT BILIRUBIN 0.6 MG/DL (0.0-0.8); POTASSIUM 3.3 MEQ/L (3.5-5.1); TOTAL BILIRUBIN ADULT 1.1 MG/DL (0.2-1.0)
[2016-06-18 07:31] LABS: HEMO FLAGS AUTO DIFF
[2016-06-18] MEDS: METHADONE HCL 10 MG TAB PO SCH ×4 (08:00→22:10)
[2016-06-18] MEDS ORDERED: POTASSIUM CHLOR 20 MEQ PREMIX 100 ML IV ONE (08:30)
[2016-06-18] MEDS ORDERED: SODIUM CHLOR 0.9% 1000 ML INJ 1,000 ML IV ONE ×3 (08:30→14:00)
--- NOTE | 2016-06-18 08:34 | HHI.PR ---
Subjective Subjective Notes I was called a couple of times overnight for low/marginal bp and she received 2 L boluses with some response. Watt was placed. She is awake and alert, no major complaints. Denies abdominal pain, nausea, or vomiting. Early this am she began to have foul smelling drainage from the middle of the incision. Objective Vitals/I&O Vital Signs Date Time Temp Pulse Resp B/P Pulse Ox O2 Delivery O2 Flow Rate FiO2 06/18/16 04:00 96.1 101 20 77/45 94 06/17/16 16:44 Room Air Labs Laboratory Tests Test 06/17/16 06/17/16 06/18/16 10:35 14:30 05:27 White Blood Count 21.5 17.1 Red Blood Count 4.20 3.47 Hemoglobin 11.8 9.4 Hematocrit 33.9 28.1 Mean Corpuscular Volume 80.6 81.0 Mean Corpuscular Hemoglobin 28.0 27.2 Mean Corpuscular Hemoglobin 34.7 33.6 Concent Red Cell Distribution Width 14.9 14.7 Platelet Count 384 277 Mean Platelet Volume 7.5 7.7 Neutrophils (%) (Auto) 85.9 85.6 Lymphocytes (%) (Auto) 4.5 6.7 Monocytes (%) (Auto) 8.7 6.3 Eosinophils (%) (Auto) 0.6 1.2 Basophils (%) (Auto) 0.3 0.2 Neutrophils # (Auto) 18.4 14.6 Lymphocytes # (Auto) 1.0 1.2 Monocytes # (Auto) 1.9 1.1 Eosinophils # (Auto) 0.1 0.2 Basophils # (Auto) 0.1 0.0 CBC Comment AUTO DIFF AUTO DIFF Differential Total Cells 100 Counted Neutrophils % (Manual) 22 Band Neutrophils % 58 Lymphocytes % 3 Monocytes % 12 Eosinophils % 1 Neutrophils # (Manual) 18.1 Metamyelocytes 4 Differential Comment FINAL DIFF MANUAL Toxic Vacuolation PRESENT Dohle Bodies PRESENT Platelet Estimate NORMAL Platelet Morphology Comment NORMAL Red Cell Morphology Comment NORMAL Sodium Level 128 127 Potassium Level 3.1 3.3 Chloride Level 86 89 Carbon Dioxide Level 32.8 29.5 Anion Gap 9 9 Blood Urea Nitrogen 38 47 Creatinine 3.49 2.31 Estimat Glomerular Filtration 14 22 Rate Random Glucose 83 66 Calcium Level 8.8 7.8 Total Bilirubin 1.2 1.1 Aspartate Amino Transf 20 18 (AST/SGOT) Alanine Aminotransferase 20 13 (ALT/SGPT) Alkaline Phosphatase 125 96 Total Protein 7.2 5.6 Albumin 2.6 2.0 Lipase 32 Urine Color DARK-BROWN Urine Turbidity CLOUDY Urine pH 5.0 Urine Specific [place] 1.023 Urine Protein 30 Urine Glucose (UA) NEG Urine Ketones NEG Urine Occult Blood SMALL Urine Nitrite NEG Urine Bilirubin SMALL Urine Urobilinogen 2.0 Urine Leukocyte Esterase MOD Urine RBC 21 Urine WBC 2 Urine Squamous Epithelial 14 Cells Urine Transitional Epithelial 1 Cells Urine Bacteria RARE Urine Hyaline Casts 41 Microscopic Urinalysis Comment CULT NOT INDICATED Direct Bilirubin 0.5 Indirect Bilirubin 0.6 Narrative Exam NAD, awake and alert nonlabored breathing sinus tachycardia Abd: distended, feculent fluid/succus draining from mid portion incision. I removed one staple. Nontender, soft, no rebound or guarding A/P Assessment and Plan 50 yo F S/p ileostomy takedown with enterocutaneous fistula, sepsis, TIMMY Will attempt to manage this nonoperatively. Place wound business support manager appliance at site for wound care. NPO. Repeat ct a/p today. Monitor HR, BP, UOP. If she does not improve she may require transfer to ICU and initiation of pressors. I will bolus another liter NS and change to NS with KCL as she has low sodium, chloride, potassium. D/w Nancy her nurse. ChecoSaroj MD Jun 18, 2016 08:33
[2016-06-18] MEDS: NS + KCL 20 MEQ INJ 1,000 ML IV SCH ×3 (10:08→23:39)
[2016-06-18] MEDS: SODIUM CHLORIDE 0.9% FLUSH 10 ML FLUSH IV FLUSH SCH ×2 (10:10→21:00)
--- NOTE | 2016-06-18 11:18 | RADRPT ---
EXAM DATE/TIME: 06/18/2016 10:43 [facility] COMPARISON: CT ABDOMEN & PELVIS W/O CONTRAST, June 17, 2016, 13:15. INDICATIONS : Evaluate for leak into abdomen; fistula. ORAL CONTRAST: No oral contrast ingested. RADIATION DOSE: 7.65 CTDIvol (mGy) MEDICAL HISTORY : perforated bowel 2016 SURGICAL HISTORY : Colon resection. Colostomy. ENCOUNTER: Initial ACUITY: 1 day PAIN SCALE: 4/10 LOCATION: Bilateral abdomen. TECHNIQUE: Volumetric scanning of the abdomen and pelvis was performed. Using automated exposure control and ad justment of the mA and/or kV according to patient size, radiation dose was kept as low as reasonably achievable to obtain optimal diagnostic quality images. FINDINGS: The unenhanced appearance of the liver, spleen, left kidney, pancreas, adrenal glands are unremarkabl e. There is a cyst at the midpole of the right kidney measuring 2.8 cm cholelithiasis is noted. Artif act from a left total hip arthroplasty and there are degenerative changes of the spine. Lung bases ar e clear. There is evidence of previous surgery to the large bowel, and there are mildly dilated loops of small bowel seen filled with contrast throughout the abdomen, decreased in prominence from before . In the right lower quadrant there is a staple line present at the level of the ileocolic anastomosi s, and on the current study there are moderate inflammatory changes and a small amount of fluid in th is region. There is an extraluminal air and contrast collection seen on image 42 with air-fluid level in the right lower quadrant abutting the anterior abdominal wall at the surgical site measuring 7 x 3.9 cm in transverse dimension. A few small locules of free air are seen in this region. The collecti on in the subcutaneous fat deep to the skin mami is decreased in size. There is subcutaneous emphy sema in this region. A small focus of air along the right colon at this level extending through the a nterior abdominal wall is decreased in prominence. CONCLUSION: There are now moderate inflammatory changes seen at level of enterocutaneous fistula/surgical site an d a small amount of fluid at the ileocolic anastomosis region with decompressed loops of bowel at thi s level. Further proximally there are dilated loops of small bowel likely ileus and decreased in prom inence from previous. Extraluminal contrast and air collection is seen in the right lower quadrant ad jacent to the surgical site.. These findings were discussed with Dr. Kessler at 11:10 AM on June 18. Galileo Modi MD on June 18, 2016 at 11:07 Board Certified Radiologist. This report was verified electronically.
[2016-06-18 11:23] LABS: BANDS 42 % (0-6); NEUTROPHIL # MANUAL DIFF 14.7 TH/MM3 (1.8-7.7); PLATELET ESTIMATE SMEAR NORMAL (NORMAL); PLATELET MORPHOLOGY NORMAL (NORMAL); POLYS (SEG NEUTROPHILS) 44 % (16-70); SCAN/DIFF FINAL DIFF MANUAL; TOXIC GRANULATION 2+ (NORMAL); WBC DIFF SAMPLE 100
[2016-06-18] MEDS: SODIUM CHLOR 0.9% 1000 ML INJ 1,000 ML IV SCH ×2 (15:45→16:07)
--- NOTE | 2016-06-18 15:52 | PD.PROCEDR ---
Central Line Procedure REASON FOR PROCEDURE Central venous access PROCEDURE PERFORMED Central line placement: [facility]J central line CONSENT Informed consent for procedure was obtained and time out performed. The risks and benefits of the procedure were discussed to include but limited to bleeding , clot formation, infection, and even . ANESTHESIA Local injection of 1% Lidocaine DESCRIPTION OF THE PROCEDURE The patient was placed in supine, mild Trendelenburg position. The area was exposed and cleansed with ChloraPrep, times two. Large sterile drape was used to cover the patient, with the site exposed, under sterile conditions including cap, face mask, sterile gown, and sterile gloves. On single attempt, the introducer needle was inserted with negative pressure in syringe and venous flash was obtained. The guide wire was then advanced without any restriction and the needle was removed. The dilator was used without any complications. Using Seldinger technique the 20 cm triple lumen abx coated catheter was advanced over the guide wire to a depth of 17 centimeters. The guide wire was removed. All ports were aspirated with dark venous blood return and flushed easily with sterile saline. All ports were capped. Antibiotic disc was placed around central line at puncture site. The central line was secured to the skin with two interrupted 2.0 silk sutures. The area was bandaged with sterile see- through central line bandage. RADIOLOGICAL DATA Ultrasound guidance was used to locate LIJ. Doppler/color flow was used to confirm venous flow. COMPLICATIONS: No apparent complications ESTIMATED BLOOD LOSS: Less than 1 cc. Jerry Romero MD Jun 18, 2016 15:52
[2016-06-18] MEDS ORDERED: NOREPINEPHRINE-DEXTROSE DRIP 250 ML IV SCH (16:00)
[2016-06-18] MEDS ORDERED: TERBUTALINE INJ 1 MG/ML AMP SQ PRN (16:00)
[2016-06-18] MEDS: LEVOFLOXACIN 500 MG PREMIX INJ 100 ML IV SCH (16:07)
[2016-06-18] MEDS: PANTOPRAZOLE SODIUM 40 MG VIAL IV SCH (16:07)
--- NOTE | 2016-06-18 16:10 | PD.CONS ---
[facility] Service Critical Care Medicine Consult Requested By Dr. Kessler Reason for Consult Septic shock Acute kidney failure Hyponatremia Enterocutaneous fistula Primary Care Physician Jl Hobson MD History of Present Illness Patient is a 50-year-old female with past medical history significant for COPD, hypertension, morbid obesity who underwent closure of an ileostomy on 06/07/16. Few days prior to admission on 06/17/16, patient started feeling nauseated after eating. She had had occasional chills, no fever. Patient was seen at Dr. Philip's office and lab work showed elevated white blood count and abnormal electrolytes and ileus on abdominal film. Patient was sent to the emergency room, work up showed elevated white blood count 18.5 WBC with 58% bands, sodium of 128, BUN/creatinine 38/3.5. Patient's previous creatinine was normal. CT abdomen and pelvis was consistent with possible small leak. Patient was admitted to the hospital under Dr. Philip's service, placed on nasogastric suction, IV fluids. Patient also also started on Levaquin and Flagyl. Patient remained hypotensive, received 2 L boluses overnight. Today patient received additional 6 L normal saline boluses but remained hypotensive with systolic blood pressure in the 80s. I was contacted by Dr. Kessler for severe septic shock despite adequate fluid resuscitation. Patient also developed feculent drainage from the middle of the incision indicating enterocutaneous fistula, couple of mami removed by Dr. Kessler and there was about 400 ml both feculent output. I evaluated the patient in ICU. She appears critically ill, hypotensive despite a total 8 liter fluid boluses since admission yesterday. I placed a left IJ central line, CVP is 8. Additional 2 L of fluid boluses ordered lactic acid and blood cultures are pending at this time. Levophed will be started to keep map above 65 Review of Systems ROS Limitations: Other (as per HPI) Past Family Social History Allergies: Coded Allergies: No Known Allergies (Unverified , 06/07/16) Past Medical History COPD Morbid obesity Hypertension Osteoarthritis Chronic pain Past Surgical History 10/21/15 had ex lap and ileostomy 06/07/16 Ileostomy take down Reported Medications Ketorolac (Ketorolac Tromethamine) 10 Mg Tab 10 Mg PO QID 5 Days Vitamin B-12 (Cyanocobalamin) 1,000 Mcg Tab 3,000 Mcg PO DAILY Metamucil Smooth Texture (Psyllium Hydrophilic Mucilloid) 28.3 % Pow 1 Scoop PO BID PRN Oxycodone (Oxycodone HCl) 10 Mg Tab 10 Mg PO TID Hydrochlorothiazide 25 Mg Tab 25 Mg PO PRN Ventolin Hfa 18 GM Inh (Albuterol Sulfate) 90 Mcg/Act Aer 2 Puff INH Q4-6H PRN Symbicort Inh (Budesonide/Formoterol Fumarate) 160-4.5 Mcg/Act Aero 2 Puff INH Q12HR Buspirone (Buspirone HCl) 5 Mg Tab 5 Mg PO HS Flexeril (Cyclobenzaprine HCl) 10 Mg Tab 10 Mg PO HS Diclofenac Sodium DR (Diclofenac Sodium) 75 Mg Tabdr 75 Mg PO BID Ativan (Lorazepam) 0.5 Mg Tab 0.5 Mg PO HS PRN Methadone (Methadone HCl) 10 Mg Tab 20 Mg PO TID Seroquel (Quetiapine Fumarate) 25 Mg Tab 25-50 Mg PO HS Active Ordered Medications Reviewed Family History Noncontributory Social History 3-4 beers/day, quit two months ago Physical Exam Vital Signs Vital Signs Date Time Temp Pulse Resp B/P Pulse Ox O2 Delivery O2 Flow Rate FiO2 06/18/16 14:00 95 70/40 95 06/18/16 13:30 96.6 95 16 80/50 06/18/16 12:00 97.2 97 16 80/50 97 06/18/16 10:10 96.5 95 80/50 06/18/16 09:26 86/52 06/18/16 08:00 96.9 97 17 76/47 96 06/18/16 07:40 96.3 100 16 82/47 95 06/18/16 04:00 96.1 101 20 77/45 94 06/18/16 00:00 101/48 06/18/16 00:00 96.4 112 20 100/84 94 06/17/16 20:00 98.5 109 20 90/50 96 06/17/16 16:44 108 18 102/57 95 Room Air Physical Exam GENERAL: 50-year-old woman, no mild distress, hypotensive despite 6L Ns boluses SKIN: Skin warm/dry. HEAD: Atraumatic. Normocephalic. EYES: Pupils equal and round. No scleral icterus. No injection or drainage. ENT: No nasal bleeding or discharge. Mucous membranes pink and moist. NECK: Trachea midline. No JVD. CARDIOVASCULAR: Regular rate and rhythm. No murmur appreciated. RESPIRATORY: No accessory muscle use. Clear to auscultation. Breath sounds equal bilaterally. GASTROINTESTINAL: Abdomen is distended. Feculent fluid drainage from mid incision after staple removed. Ileostomy bag applied MUSCULOSKELETAL: No obvious deformities. No edema. NEUROLOGICAL: Awake and alert. No obvious cranial nerve deficits. Motor grossly within normal limits. Normal speech. Laboratory Laboratory Tests Test 06/18/16 05:27 White Blood Count 17.1 Red Blood Count 3.47 Hemoglobin 9.4 Hematocrit 28.1 Mean Corpuscular Volume 81.0 Mean Corpuscular Hemoglobin 27.2 Mean Corpuscular Hemoglobin 33.6 Concent Red Cell Distribution Width 14.7 Platelet Count 277 Mean Platelet Volume 7.7 Neutrophils (%) (Auto) 85.6 Lymphocytes (%) (Auto) 6.7 Monocytes (%) (Auto) 6.3 Eosinophils (%) (Auto) 1.2 Basophils (%) (Auto) 0.2 Neutrophils # (Auto) 14.6 Lymphocytes # (Auto) 1.2 Monocytes # (Auto) 1.1 Eosinophils # (Auto) 0.2 Basophils # (Auto) 0.0 CBC Comment AUTO DIFF Differential Total Cells 100 Counted Neutrophils % (Manual) 44 Band Neutrophils % 42 Lymphocytes % 8 Monocytes % 6 Neutrophils # (Manual) 14.7 Differential Comment FINAL DIFF MANUAL Toxic Granulation 2+ Platelet Estimate NORMAL Platelet Morphology Comment NORMAL Sodium Level 127 Potassium Level 3.3 Chloride Level 89 Carbon Dioxide Level 29.5 Anion Gap 9 Blood Urea Nitrogen 47 Creatinine 2.31 Estimat Glomerular Filtration 22 Rate Random Glucose 66 Calcium Level 7.8 Total Bilirubin 1.1 Direct Bilirubin 0.5 Indirect Bilirubin 0.6 Aspartate Amino Transf 18 (AST/SGOT) Alanine Aminotransferase 13 (ALT/SGPT) Alkaline Phosphatase 96 Total Protein 5.6 Albumin 2.0 Result Diagram: 06/18/1652606/18/16526 Imaging Reviewed Septic Shock Reassessment Heart: Other (tachycardic) Lungs: Clear Skin: Warm Peripheral Pulses: Weak Right Radial Weak Left Radial Capillary Refill: >2 seconds Assessment and Plan Assessment and Plan ASSESSMENT Septic shock Acute kidney failure Hyponatremia Enterocutaneous fistula COPD History of hypertension PLAN: NEURO: Chronic pain -As needed Morphine for pain. Hold by mouth OxyContin at this time. Continue Methadone RESP: History of COPD -Nasal cannula oxygen if needed -Continue Symbicort -DuoNeb every 6 hours when necessary -Aggressive pulmonary toilet CV: Septic shock History of hypertension -Status post 8 liter crystalloid boluses las 24 hours, give additional 2 L normal saline bolus as the patient has a CVP of 8 -Levophed to keep map above 65 -Check an trend lactic acid -Continue normal saline at 175ml per hour GI: Enterocutaneous fistula Status post ileostomy takedown 06/07/16 Malnutrition -NPO except meds, NG to suction -Continue IV hydration, consider TPN-defer to gen surgery : Acute kidney failure -Acute kidney failure is most likely secondary to ATN/sepsis,a nd dehydration -Monitor renal function closely. Watt catheter. ID: Septic shock -Send blood culture, trend lactic acid -Continue Levaquin and Flagyl, add cefepime HEME: -Monitor CBC, CMP ENDO: Hypokalemia Hyponatremia -Replace electrolyte PROPH: -Bilateral lower extremity SCDs. Lovenox 30 mg subcutaneous daily. IV Protonix LINES: -[facility] central line placed 06/18/16 CC time 55 min Code Status Full Discussed Condition With Jerry King MD Jun 18, 2016 16:10
--- NOTE | 2016-06-18 16:29 | RADRPT ---
EXAM DATE/TIME: 06/18/2016 15:57 [facility] COMPARISON: CHEST SINGLE AP, November 23, 2015, 18:58. INDICATIONS : Central line placement. MEDICAL HISTORY : Chronic obstructive pulmonary disease. SURGICAL HISTORY : None. ENCOUNTER: Initial ACUITY: 1 day PAIN SCORE: 5/10 LOCATION: Bilateral chest FINDINGS: The lungs are clear without infiltrate, nodule, or mass except for slight linear atelectasis in both lung bases. There is no appreciable pleural effusion for technique. Heart and mediastinum are unrem arkable. Left IJ line is present with tip overlapping the expected region of the SVC. No definite pne umothorax is seen for technique. CONCLUSION: No acute cardiopulmonary disease. Ronnell Dewitt MD on June 18, 2016 at 16:27 Board Certified Radiologist. This report was verified electronically.
[2016-06-18] MEDS: CEFEPIME INJ 1,000 MG in SODIUM CHLORIDE 0.9% INJ 100 ML IV SCH (17:00)
[2016-06-18] MEDS ORDERED: MORPHINE SULFATE 4 MG/ML INJ IV PUSH PRN (17:00)
[2016-06-18 18:03] LABS: BICARBONATE 23.5 MEQ/L (21.0-32.0); CALCIUM-PROTEIN CORRECTED 8.2 MG/DL (8.5-10.1); POTASSIUM 3.5 MEQ/L (3.5-5.1); TOTAL BILIRUBIN ADULT 0.9 MG/DL (0.2-1.0)
[2016-06-18] MEDS: BUDESONIDE-FORMOTEROL 160/4.5 MCG INHALER INH SCH (21:00)
[2016-06-18] MEDS: LORazepam 2 MG/ML VIAL IV PUSH PRN (22:09)
[2016-06-19] VITALS (12 sets, daily range): BP systolic 94–115; BP diastolic 50–75; PULSE 98–109; RESP 15–25; TEMP 97.4–98.2; O2SAT 96–100
[2016-06-19] MEDS: metroNIDAZOLE 500 MG INJ 100 ML IV SCH ×4 (04:31→21:16)
[2016-06-19] MEDS: NS + KCL 20 MEQ INJ 1,000 ML IV SCH (04:34)
[2016-06-19 05:59] LABS: AUTOMATED NEUTROPHIL # 13.9 TH/MM3 (1.8-7.7); BASOPHIL % 0.3 % (0.0-2.0); EOSINOPHIL # 0.3 TH/MM3 (0-0.4); HEMO FLAGS DIFF FINAL; LYMPH % 6.9 % (9.0-44.0); LYMPHOCYTE # 1.1 TH/MM3 (1.0-4.8); MEAN CELL VOLUME 82.1 FL (80.0-100.0); MEAN CORPUSCULAR HEMOGLOBIN 27.3 PG (27.0-34.0); MEAN CORPUSCULAR HGB CONC 33.3 % (32.0-36.0); MONO % 5.4 % (0.0-8.0); NEUT % 85.4 % (16.0-70.0); PLATELET COUNT 270 TH/MM3 (150-450); RED BLOOD COUNT 3.54 MIL/MM3 (4.00-5.30); RED CELL DISTRIBUTION WIDTH 15.1 % (11.6-17.2); WHITE BLOOD COUNT 16.3 TH/MM3 (4.0-11.0)
[2016-06-19 06:49] LABS: CALCIUM-PROTEIN CORRECTED 8.5 MG/DL (8.5-10.1); MAGNESIUM 1.3 MG/DL (1.5-2.5); POTASSIUM 3.8 MEQ/L (3.5-5.1); TOTAL BILIRUBIN ADULT 0.6 MG/DL (0.2-1.0)
--- NOTE | 2016-06-19 07:40 | HHI.CCPN ---
Subjective Remarks/Hospital Course Patient is a 50-year-old female with past medical history significant for COPD, hypertension, morbid obesity who underwent closure of an ileostomy on 06/07/16. Few days prior to admission on 06/17/16, patient started feeling nauseated after eating. She had had occasional chills, no fever. Patient was seen at Dr. Philip's office and lab work showed elevated white blood count and abnormal electrolytes and ileus on abdominal film. Patient was sent to the emergency room, work up showed elevated white blood count 18.5 WBC with 58% bands, sodium of 128, BUN/creatinine 38/3.5. Patient's previous creatinine was normal. CT abdomen and pelvis was consistent with possible small leak. Patient was admitted to the hospital under Dr. Philip's service, placed on nasogastric suction, IV fluids. Patient also also started on Levaquin and Flagyl. Patient remained hypotensive, received 2 L boluses overnight. Today patient received additional 6 L normal saline boluses but remained hypotensive with systolic blood pressure in the 80s. I was contacted by Dr. Kessler for severe septic shock despite adequate fluid resuscitation. Patient also developed feculent drainage from the middle of the incision indicating enterocutaneous fistula, couple of mami removed by Dr. Kessler and there was about 400 ml both feculent output. I evaluated the patient in ICU. She appears critically ill, hypotensive despite a total 8 liter fluid boluses since admission yesterday. I placed a left IJ central line, CVP is 8. Additional 2 L of fluid boluses ordered lactic acid and blood cultures are pending at this time. Levophed will be started to keep map above 65 SUBJ 06/19: Lying in bed no acute distress today. Remains on 2 mcg/m of Levophed to keep map above 65. Urine output excellent close to 4 L, in 24 hours. Creatinine is normalizing Objective Vital Signs Date Time Temp Pulse Resp B/P Pulse Ox O2 Delivery O2 Flow Rate FiO2 06/19/16 06:00 104 06/19/16 04:00 97.9 17 109/64 06/19/16 00:00 96 06/17/16 16:44 Room Air Intake and Output 06/18/16 06/18/16 06/19/16 08:00 16:00 00:00 Intake Total 2800 ml 5344 ml 2133 ml Output Total 300 ml 1400 ml 2100 ml Balance 2500 ml 3944 ml 33 ml Result Diagram: 06/19/16 0450 06/19/16 0450 Imaging Reviewed Objective Remarks GENERAL: 50-year-old woman, no distress, hypotensive on Levophed SKIN: Skin warm/dry. HEAD: Atraumatic. Normocephalic. EYES: Pupils equal and round. No scleral icterus. No injection or drainage. ENT: No nasal bleeding or discharge. Mucous membranes pink and moist. NECK: Trachea midline. No JVD. CARDIOVASCULAR: Regular rate and rhythm. No murmur appreciated. RESPIRATORY: No accessory muscle use. Clear to auscultation. Breath sounds equal bilaterally. GASTROINTESTINAL: Abdomen is distended. Feculent fluid drainage from mid incision after staple removed. Ileostomy bag applied. Mild RLQ tenderness to palpation MUSCULOSKELETAL: No obvious deformities. No edema. NEUROLOGICAL: Awake and alert. No obvious cranial nerve deficits. Motor grossly within normal limits. Normal speech. Urinary Catheter: Yes Assessment to: Continue A/P Assessment and Plan ASSESSMENT Septic shock Acute kidney failure Hyponatremia Enterocutaneous fistula COPD History of hypertension PLAN: NEURO: Chronic pain -As needed Morphine for pain. Hold by mouth OxyContin at this time. Continue Methadone RESP: History of COPD -Nasal cannula oxygen if needed -Continue Symbicort -DuoNeb every 6 hours when necessary -Aggressive pulmonary toilet CV: Septic shock History of hypertension -Status post 10 liter crystalloid boluses last 24 hours. -Levophed to keep map above 65. Attempt wean to DC -Lactic acid normal -Normal saline at 175ml per hour-reduce to 150 ml per hour GI: Enterocutaneous fistula Status post ileostomy takedown 06/07/16 Malnutrition -NPO except meds, NG to suction -Continue IV hydration, consider TPN-defer to gen surgery : Acute kidney failure -Acute kidney failure is most likely secondary to ATN/sepsis,and dehydration -Monitor renal function closely. Watt catheter. -Creatinine is steadily improving ID: Septic shock -F/U blood culture, trend lactic acid -Continue Levaquin and Flagyl, add cefepime HEME: -Monitor CBC, CMP ENDO: Hypokalemia Hyponatremia -Replace electrolyte PROPH: -Bilateral lower extremity SCDs. Lovenox 30 mg subcutaneous daily. IV Protonix LINES: -LIJ central line placed 06/18/16 CC time 35 min Jerry Romero MD Jun 19, 2016 07:40
[2016-06-19] MEDS ORDERED: POTASSIUM CHLORIDE 25 MEQ EFFERVESCENT TAB PO PRN (07:45)
[2016-06-19] MEDS ORDERED: SODIUM PHOSPHATE INJ 30 MMOL in SODIUM CHLOR 0.9% 250 ML INJ 240 ML IV PRN (07:45)
[2016-06-19] MEDS ORDERED: POTASSIUM CHLOR 40 MEQ PREMIX 100 ML IV PRN (07:45)
[2016-06-19] MEDS ORDERED: POTASSIUM CHLOR 20 MEQ PREMIX 100 ML IV PRN ×2 (07:45)
[2016-06-19] MEDS ORDERED: MAGNESIUM OXIDE 400 MG TAB PO PRN (07:45)
[2016-06-19] MEDS ORDERED: POTASSIUM PHOSPHATE MONOBASIC 500 MG TAB PO/TUBE PRN (07:45)
[2016-06-19] MEDS ORDERED: MAGNESIUM SULFATE INJ 4 GM in SODIUM CHLORIDE 0.9% INJ 92 ML IV PRN (07:45)
[2016-06-19] MEDS ORDERED: MAGNESIUM SULFATE INJ 2 GM in SODIUM CHLORIDE 0.9% INJ 96 ML IV PRN (07:45)
[2016-06-19] MEDS ORDERED: POTASSIUM PHOSPHATE MONOBASIC 500 MG TAB PO PRN (07:45)
[2016-06-19] MEDS: MAGNESIUM SULFATE 1 GM PREMIX 100 ML IV SCH ×2 (08:17→08:45)
[2016-06-19] MEDS: METHADONE HCL 10 MG TAB PO SCH ×4 (08:18→23:57)
[2016-06-19] MEDS: SODIUM CHLORIDE 0.9% FLUSH 10 ML FLUSH IV FLUSH SCH ×2 (09:00→20:39)
[2016-06-19] MEDS: BUDESONIDE-FORMOTEROL 160/4.5 MCG INHALER INH SCH ×2 (09:00→21:00)
[2016-06-19] MEDS: D5-NS + KCL 20 MEQ INJ 1,000 ML IV SCH ×3 (09:00→20:38)
[2016-06-19] MEDS: LORazepam 2 MG/ML VIAL IV PUSH PRN (11:25)
--- NOTE | 2016-06-19 14:15 | HHI.PR ---
Subjective Subjective Notes She is off levophed. Received ativan earlier and she is a bit delirious and confused now. Objective Vitals/I&O Vital Signs Date Time Temp Pulse Resp B/P Pulse Ox O2 Delivery O2 Flow Rate FiO2 06/19/16 06:00 104 06/19/16 04:00 97.9 17 109/64 06/19/16 00:00 96 06/17/16 16:44 Room Air Labs Laboratory Tests Test 06/18/16 06/18/16 06/19/16 06/19/16 15:50 16:54 04:50 11:40 Lactic Acid Level 0.9 Sodium Level 137 141 Potassium Level 3.5 3.8 Chloride Level 105 111 Carbon Dioxide Level 23.5 23.0 Anion Gap 9 7 Blood Urea Nitrogen 34 27 Creatinine 1.38 1.10 Estimat Glomerular Filtration 40 52 Rate Random Glucose 53 52 Calcium Level 6.7 7.3 Protein Corrected Calcium 8.2 8.5 Total Bilirubin 0.9 0.6 Aspartate Amino Transf 13 11 (AST/SGOT) Alanine Aminotransferase 10 10 (ALT/SGPT) Alkaline Phosphatase 72 93 Total Protein 4.2 4.9 Albumin 1.5 1.6 White Blood Count 16.3 Red Blood Count 3.54 Hemoglobin 9.7 Hematocrit 29.0 Mean Corpuscular Volume 82.1 Mean Corpuscular Hemoglobin 27.3 Mean Corpuscular Hemoglobin 33.3 Concent Red Cell Distribution Width 15.1 Platelet Count 270 Mean Platelet Volume 7.7 Neutrophils (%) (Auto) 85.4 Lymphocytes (%) (Auto) 6.9 Monocytes (%) (Auto) 5.4 Eosinophils (%) (Auto) 2.0 Basophils (%) (Auto) 0.3 Neutrophils # (Auto) 13.9 Lymphocytes # (Auto) 1.1 Monocytes # (Auto) 0.9 Eosinophils # (Auto) 0.3 Basophils # (Auto) 0.0 CBC Comment DIFF FINAL Differential Comment Magnesium Level 1.3 Phosphorus Level 1.1 Date/Time Procedure Status Source Growth 06/18/16 16:57 Aerobic Blood Culture - Preliminary Resulted Blood Peripheral NO GROWTH IN 1 DAY 06/18/16 16:57 Anaerobic Blood Culture - Preliminary Resulted Blood Peripheral NO GROWTH IN 1 DAY Narrative Exam NAD, awake and alert nonlabored breathing RRR Abd: distended, feculent fluid/succus draining from wound technical services manager bag, no rebound or guarding A/P Assessment and Plan 50 yo F S/p ileostomy takedown with enterocutaneous fistula, sepsis, TIMMY Stable- UOP good, off levophed. Labs improving. Continue non op management. Wound technical services manager appliance. NPO. Start TPN. Appreciate CCM input. I had a long discussion with the patient's mother and father regarding her current situation and expected progression, possibilities, etc. D/w Dr. Romero. D/w Elis bedside nurse. Checo,Saroj PEPE Jun 19, 2016 14:15
[2016-06-19] MEDS: PANTOPRAZOLE SODIUM 40 MG VIAL IV SCH (16:00)
[2016-06-19] MEDS: LEVOFLOXACIN 500 MG PREMIX INJ 100 ML IV SCH (16:11)
[2016-06-19] MEDS: CEFEPIME INJ 1,000 MG in SODIUM CHLORIDE 0.9% INJ 100 ML IV SCH (16:11)
[2016-06-19] MEDS ORDERED: DEXTROSE 50% IN WATER 50 ML SYRINGE ONE ×2 (16:29→18:25)
[2016-06-19] MEDS: FAT EMULSION 20% INJ 250 ML (Daily over 8 hours) IV-CENTRAL SCH (21:01)
[2016-06-19] MEDS: CLINIMIX E 4.25/25 1000 mL- </= 42 mls/hr IV-CENTRAL SCH ×3 (21:01)
[2016-06-20] VITALS (11 sets, daily range): BP systolic 100–143; BP diastolic 64–77; PULSE 95–118; RESP 14–25; TEMP 98–100.2; O2SAT 92–98
[2016-06-20] MEDS: D5-NS + KCL 20 MEQ INJ 1,000 ML IV SCH (02:09)
[2016-06-20] MEDS: metroNIDAZOLE 500 MG INJ 100 ML IV SCH ×4 (03:43→21:40)
[2016-06-20 05:16] LABS: AUTOMATED NEUTROPHIL # 6.6 TH/MM3 (1.8-7.7); BASOPHIL # 0.1 TH/MM3 (0-0.2); BASOPHIL % 0.6 % (0.0-2.0); EOSINOPHIL # 0.3 TH/MM3 (0-0.4); EOSINOPHIL % 2.9 % (0.0-4.0); HEMATOCRIT 26.5 % (35.0-46.0); LYMPH % 16.8 % (9.0-44.0); LYMPHOCYTE # 1.5 TH/MM3 (1.0-4.8); MEAN CELL VOLUME 81.4 FL (80.0-100.0); MEAN CORPUSCULAR HGB CONC 34.4 % (32.0-36.0); MONO % 5.6 % (0.0-8.0); NEUT % 74.1 % (16.0-70.0); PLATELET COUNT 257 TH/MM3 (150-450); RED BLOOD COUNT 3.26 MIL/MM3 (4.00-5.30); RED CELL DISTRIBUTION WIDTH 15.4 % (11.6-17.2); WHITE BLOOD COUNT 8.8 TH/MM3 (4.0-11.0)
[2016-06-20 05:20] LABS: HEMO FLAGS AUTO DIFF
[2016-06-20 05:53] LABS: BICARBONATE 24.2 MEQ/L (21.0-32.0); CALCIUM-PROTEIN CORRECTED 8.4 MG/DL (8.5-10.1); POTASSIUM 3.5 MEQ/L (3.5-5.1); TOTAL BILIRUBIN ADULT 0.3 MG/DL (0.2-1.0)
[2016-06-20 06:59] LABS: BANDS 16 % (0-6); BASOPHILS 1 % (0-2); EOSINOPHILS 3 % (0-4); NEUTROPHIL # MANUAL DIFF 6.4 TH/MM3 (1.8-7.7); POLYS (SEG NEUTROPHILS) 57 % (16-70); WBC DIFF SAMPLE 100
[2016-06-20 07:01] LABS: KERATOCYTES OCC (NORMAL); PLATELET ESTIMATE SMEAR NORMAL (NORMAL); PLATELET MORPHOLOGY NORMAL (NORMAL); SCAN/DIFF FINAL DIFF MANUAL
[2016-06-20] MEDS: SODIUM CHLORIDE 0.9% FLUSH 10 ML FLUSH IV FLUSH SCH ×2 (07:41→19:53)
--- NOTE | 2016-06-20 08:48 | HHI.CCPN ---
Subjective Remarks/Hospital Course Patient is a 50-year-old female with past medical history significant for COPD, hypertension, morbid obesity who underwent closure of an ileostomy on 06/07/16. Few days prior to admission on 06/17/16, patient started feeling nauseated after eating. She had had occasional chills, no fever. Patient was seen at Dr. Philip's office and lab work showed elevated white blood count and abnormal electrolytes and ileus on abdominal film. Patient was sent to the emergency room, work up showed elevated white blood count 18.5 WBC with 58% bands, sodium of 128, BUN/creatinine 38/3.5. Patient's previous creatinine was normal. CT abdomen and pelvis was consistent with possible small leak. Patient was admitted to the hospital under Dr. Philip's service, placed on nasogastric suction, IV fluids. Patient also also started on Levaquin and Flagyl. Patient remained hypotensive, received 2 L boluses overnight. Today patient received additional 6 L normal saline boluses but remained hypotensive with systolic blood pressure in the 80s. I was contacted by Dr. Kessler for severe septic shock despite adequate fluid resuscitation. Patient also developed feculent drainage from the middle of the incision indicating enterocutaneous fistula, couple of mami removed by Dr. Kessler and there was about 400 ml both feculent output. I evaluated the patient in ICU. She appears critically ill, hypotensive despite a total 8 liter fluid boluses since admission yesterday. I placed a left IJ central line, CVP is 8. Additional 2 L of fluid boluses ordered lactic acid and blood cultures are pending at this time. Levophed will be started to keep map above 65 SUBJ 06/19: Lying in bed no acute distress today. Remains on 2 mcg/m of Levophed to keep map above 65. Urine output excellent close to 4 L, in 24 hours. Creatinine is normalizing 06/20: Patient lying in bed comfortably. Remains off Levophed since afternoon yesterday. Urine output excellent creatinine has normalized, white count has normalized Objective Vital Signs Date Time Temp Pulse Resp B/P Pulse Ox O2 Delivery O2 Flow Rate FiO2 06/20/16 06:00 106 06/20/16 04:00 100.2 25 111/77 95 06/17/16 16:44 Room Air Intake and Output 06/19/16 06/19/16 06/20/16 08:00 16:00 00:00 Intake Total 1288 ml 1842 ml 1730 ml Output Total 1100 ml 950 ml 550 ml Balance 188 ml 892 ml 1180 ml Result Diagram: 06/20/16 0500 06/20/16 0500 Imaging Reviewed Objective Remarks GENERAL: 50-year-old woman, no distress, SKIN: Skin warm/dry. HEAD: Atraumatic. Normocephalic. EYES: Pupils equal and round. No scleral icterus. No injection or drainage. ENT: No nasal bleeding or discharge. Mucous membranes pink and moist. NECK: Trachea midline. No JVD. CARDIOVASCULAR: Regular rate and rhythm. No murmur appreciated. RESPIRATORY: No accessory muscle use. Clear to auscultation. Breath sounds equal bilaterally. GASTROINTESTINAL: Abdomen is distended. Feculent fluid drainage from mid incision after staple removed. Ileostomy bag applied. Mild RLQ tenderness to palpation MUSCULOSKELETAL: No obvious deformities. No edema. NEUROLOGICAL: Awake and alert. No obvious cranial nerve deficits. Motor grossly within normal limits. Normal speech. A/P Assessment and Plan ASSESSMENT Septic shock Acute kidney failure Hyponatremia Enterocutaneous fistula COPD History of hypertension PLAN: NEURO: Chronic pain -As needed Morphine for pain. Hold by mouth OxyContin at this time. Continue Methadone per primary service -Ativan 0.5 mg q4 prn for anxiety. Did cause some confusion yesterday when 1 mg was given RESP: History of COPD -Nasal cannula oxygen if needed -Continue Symbicort -DuoNeb every 6 hours when necessary -Aggressive pulmonary toilet CV: Septic shock resolved History of hypertension -Status post 10 liter crystalloid boluses last 24 hours. -Levophed to keep map above 65. Now off >12 hours -Lactic acid normal -D5/Normal saline DC as patient is on TPN GI: Enterocutaneous fistula Status post ileostomy takedown 06/07/16 Malnutrition -NPO except meds, NG to suction -Started on TPN 06/19/16 : Acute kidney failure -Acute kidney failure is most likely secondary to ATN/sepsis,and dehydration -Monitor renal function closely. Watt catheter. -Creatinine is normalized ID: Septic shock -F/U blood culture, trend lactic acid -On Levaquin and Flagyl, and cefepime. DC Levaquin HEME: -Monitor CBC, CMP ENDO: Hypokalemia Hyponatremia Hypoglycemia -Replace electrolyte -Hypoglycemia resolved after starting TPN PROPH: -Bilateral lower extremity SCDs. Lovenox 30 mg subcutaneous daily-increase to 40 mg daily. IV Protonix LINES: -LIJ central line placed 06/18/16 PT Jerry Woodward MD June 20, 2016 08:48
[2016-06-20] MEDS: METHADONE HCL 10 MG TAB PO SCH ×2 (08:52→17:05)
[2016-06-20] MEDS: BUDESONIDE-FORMOTEROL 160/4.5 MCG INHALER INH SCH ×2 (08:52→19:55)
[2016-06-20] MEDS: CEFEPIME INJ 1,000 MG in SODIUM CHLORIDE 0.9% INJ 100 ML IV SCH ×2 (09:40→17:05)
[2016-06-20] MEDS: PANTOPRAZOLE SODIUM 40 MG VIAL IV SCH (17:05)
--- NOTE | 2016-06-20 18:22 | HHI.PR ---
Subjective Subjective Notes Patient feels slightly better today although she still complains of some tenderness in her abdomen. She states that she's been occasionally confused. She has not passed any flatus or had any bowel movements. Objective Vitals/I&O Vital Signs Date Time Temp Pulse Resp B/P Pulse Ox O2 Delivery O2 Flow Rate FiO2 06/20/16 16:00 102 06/20/16 16:00 98.0 17 143/67 92 06/17/16 16:44 Room Air Labs Laboratory Tests Test 06/20/16 05:00 White Blood Count 8.8 Red Blood Count 3.26 Hemoglobin 9.1 Hematocrit 26.5 Mean Corpuscular Volume 81.4 Mean Corpuscular Hemoglobin 28.0 Mean Corpuscular Hemoglobin 34.4 Concent Red Cell Distribution Width 15.4 Platelet Count 257 Mean Platelet Volume 7.3 Neutrophils (%) (Auto) 74.1 Lymphocytes (%) (Auto) 16.8 Monocytes (%) (Auto) 5.6 Eosinophils (%) (Auto) 2.9 Basophils (%) (Auto) 0.6 Neutrophils # (Auto) 6.6 Lymphocytes # (Auto) 1.5 Monocytes # (Auto) 0.5 Eosinophils # (Auto) 0.3 Basophils # (Auto) 0.1 CBC Comment AUTO DIFF Differential Total Cells 100 Counted Neutrophils % (Manual) 57 Band Neutrophils % 16 Lymphocytes % 19 Monocytes % 4 Eosinophils % 3 Basophils % 1 Neutrophils # (Manual) 6.4 Differential Comment FINAL DIFF MANUAL Platelet Estimate NORMAL Platelet Morphology Comment NORMAL Keratocytes OCC Sodium Level 142 Potassium Level 3.5 Chloride Level 113 Carbon Dioxide Level 24.2 Anion Gap 5 Blood Urea Nitrogen 13 Creatinine 0.82 Estimat Glomerular Filtration 73 Rate Random Glucose 139 Calcium Level 7.2 Protein Corrected Calcium 8.4 Total Bilirubin 0.3 Aspartate Amino Transf 9 (AST/SGOT) Alanine Aminotransferase 7 (ALT/SGPT) Alkaline Phosphatase 81 Total Protein 4.9 Albumin 1.6 Date/Time Procedure Status Source Growth 06/18/16 16:57 Aerobic Blood Culture - Preliminary Resulted Blood Peripheral NO GROWTH IN 2 DAYS 06/18/16 16:57 Anaerobic Blood Culture - Preliminary Resulted Blood Peripheral NO GROWTH IN 2 DAYS Radiology Vital Signs Date Time Temp Pulse Resp B/P Pulse Ox O2 Delivery O2 Flow Rate FiO2 06/20/16 16:00 102 06/20/16 16:00 98.0 102 17 143/67 92 06/20/16 14:00 100 06/20/16 12:00 98.4 102 23 113/72 97 06/20/16 12:00 95 06/20/16 10:00 98 06/20/16 08:00 98.2 101 14 101/67 98 06/20/16 08:00 101 06/20/16 06:00 106 06/20/16 04:00 100.2 115 25 111/77 95 06/20/16 04:00 115 06/20/16 02:00 118 06/20/16 00:57 22 06/20/16 00:00 114 06/20/16 00:00 99.2 114 19 100/64 95 06/19/16 22:00 98.2 107 25 114/58 96 06/19/16 22:00 109 06/19/16 20:00 98.2 106 25 114/58 96 06/19/16 20:00 108 Cardiovascular: Regular Abdomen: Post-op tenderness Narrative Exam The patient has diminishing output from the enterocutaneous fistula although it appears to be more stool like. Her incision is otherwise clean. Her abdomen is tender and distended, but she has no peritoneal signs. A/P Assessment and Plan Impression: Status post closure of ileostomy, now with enterocutaneous fistula. She had been septic for the last several days on pressors, however she has begun to recover and her laboratory work as well as her abdominal exam has continued to improve. Plan: We will continue TPN for now and reassess lab's and physical exam tomorrow. Magdaleno Philip MD June 20, 2016 18:22
[2016-06-20] MEDS: CLINIMIX E 4.25/25 1000 mL- </= 42 mls/hr IV-CENTRAL SCH ×3 (19:52)
[2016-06-20] MEDS: FAT EMULSION 20% INJ 250 ML (Daily over 8 hours) IV-CENTRAL SCH (19:53)
[2016-06-21] VITALS (8 sets, daily range): BP systolic 120–139; BP diastolic 77–89; PULSE 94–101; RESP 16–25; TEMP 97.1–100; O2SAT 95–100
[2016-06-21] MEDS: METHADONE HCL 10 MG TAB PO SCH ×4 (00:08→23:37)
[2016-06-21] MEDS: CEFEPIME INJ 1,000 MG in SODIUM CHLORIDE 0.9% INJ 100 ML IV SCH ×4 (00:08→23:37)
[2016-06-21] MEDS: metroNIDAZOLE 500 MG INJ 100 ML IV SCH ×4 (03:14→23:37)
[2016-06-21 05:32] LABS: AUTOMATED NEUTROPHIL # 5.2 TH/MM3 (1.8-7.7); BASOPHIL # 0.1 TH/MM3 (0-0.2); BASOPHIL % 0.6 % (0.0-2.0); EOSINOPHIL # 0.2 TH/MM3 (0-0.4); EOSINOPHIL % 2.8 % (0.0-4.0); HEMATOCRIT 26.4 % (35.0-46.0); LYMPH % 26.6 % (9.0-44.0); LYMPHOCYTE # 2.3 TH/MM3 (1.0-4.8); MEAN CELL VOLUME 80.9 FL (80.0-100.0); MEAN CORPUSCULAR HEMOGLOBIN 27.3 PG (27.0-34.0); MEAN CORPUSCULAR HGB CONC 33.7 % (32.0-36.0); MONO % 8.9 % (0.0-8.0); NEUT % 61.1 % (16.0-70.0); PLATELET COUNT 230 TH/MM3 (150-450); RED BLOOD COUNT 3.27 MIL/MM3 (4.00-5.30); RED CELL DISTRIBUTION WIDTH 15.5 % (11.6-17.2); WHITE BLOOD COUNT 8.5 TH/MM3 (4.0-11.0)
[2016-06-21 05:36] LABS: HEMO FLAGS AUTO DIFF
[2016-06-21 06:03] LABS: BICARBONATE 25.1 MEQ/L (21.0-32.0); POTASSIUM 3.1 MEQ/L (3.5-5.1)
[2016-06-21] MEDS: POTASSIUM CHLOR 40 MEQ PREMIX 100 ML IV PRN ×2 (07:19→07:20)
[2016-06-21] MEDS: SODIUM CHLORIDE 0.9% FLUSH 10 ML FLUSH IV FLUSH SCH ×2 (07:21→20:14)
[2016-06-21 08:23] LABS: BANDS 11 % (0-6); EOSINOPHILS 4 % (0-4); MYELOCYTES 1 % (0-0); NEUTROPHIL # MANUAL DIFF 4.9 TH/MM3 (1.8-7.7); PLATELET ESTIMATE SMEAR NORMAL (NORMAL); PLATELET MORPHOLOGY NORMAL (NORMAL); POLYS (SEG NEUTROPHILS) 46 % (16-70); SCAN/DIFF FINAL DIFF MANUAL; WBC DIFF SAMPLE 100
[2016-06-21] MEDS: BUDESONIDE-FORMOTEROL 160/4.5 MCG INHALER INH SCH ×2 (08:33→20:14)
--- NOTE | 2016-06-21 15:08 | HHI.PR ---
Subjective Subjective Notes She states she feels better than yesterday with decreased distention and decreased pain. She had some flatus through the fistula earlier today. She denies any other problems at this point. She's had no nausea in particular. Objective Vitals/I&O Vital Signs Date Time Temp Pulse Resp B/P Pulse Ox O2 Delivery O2 Flow Rate FiO2 06/21/16 12:00 99.1 100 25 130/78 98 06/21/16 02:58 21 06/17/16 16:44 Room Air Labs Laboratory Tests Test 06/21/16 04:56 White Blood Count 8.5 Red Blood Count 3.27 Hemoglobin 8.9 Hematocrit 26.4 Mean Corpuscular Volume 80.9 Mean Corpuscular Hemoglobin 27.3 Mean Corpuscular Hemoglobin 33.7 Concent Red Cell Distribution Width 15.5 Platelet Count 230 Mean Platelet Volume 7.1 Neutrophils (%) (Auto) 61.1 Lymphocytes (%) (Auto) 26.6 Monocytes (%) (Auto) 8.9 Eosinophils (%) (Auto) 2.8 Basophils (%) (Auto) 0.6 Neutrophils # (Auto) 5.2 Lymphocytes # (Auto) 2.3 Monocytes # (Auto) 0.8 Eosinophils # (Auto) 0.2 Basophils # (Auto) 0.1 CBC Comment AUTO DIFF Differential Total Cells 100 Counted Neutrophils % (Manual) 46 Band Neutrophils % 11 Lymphocytes % 31 Monocytes % 7 Eosinophils % 4 Neutrophils # (Manual) 4.9 Myelocytes 1 Differential Comment FINAL DIFF MANUAL Atypical Lymphocytes Platelet Estimate NORMAL Platelet Morphology Comment NORMAL Sodium Level 141 Potassium Level 3.1 Chloride Level 110 Carbon Dioxide Level 25.1 Anion Gap 6 Blood Urea Nitrogen 8 Creatinine 0.67 Estimat Glomerular Filtration 93 Rate Random Glucose 151 Calcium Level 7.5 Date/Time Procedure Status Source Growth 06/18/16 16:57 Aerobic Blood Culture - Preliminary Resulted Blood Peripheral NO GROWTH IN 3 DAYS 06/18/16 16:57 Anaerobic Blood Culture - Preliminary Resulted Blood Peripheral NO GROWTH IN 3 DAYS Radiology Vital Signs Date Time Temp Pulse Resp B/P Pulse Ox O2 Delivery O2 Flow Rate FiO2 06/20/16 16:00 102 06/20/16 16:00 98.0 102 17 143/67 92 06/20/16 14:00 100 06/20/16 12:00 98.4 102 23 113/72 97 06/20/16 12:00 95 06/20/16 10:00 98 06/20/16 08:00 98.2 101 14 101/67 98 06/20/16 08:00 101 06/20/16 06:00 106 06/20/16 04:00 100.2 115 25 111/77 95 06/20/16 04:00 115 06/20/16 02:00 118 06/20/16 00:57 22 06/20/16 00:00 114 06/20/16 00:00 99.2 114 19 100/64 95 06/19/16 22:00 98.2 107 25 114/58 96 06/19/16 22:00 109 06/19/16 20:00 98.2 106 25 114/58 96 06/19/16 20:00 108 Cardiovascular: Regular Lungs: Clear Abdomen: Non-distended, Non-tender Extremities: No edema Narrative Exam There is still significant output from the enterocutaneous fistula with the output more closely resembling stool than succus entericus. A/P Assessment and Plan Impression: Status post closure of ileostomy, now with enterocutaneous fistula. The fistula has feculent type but the volume has been relatively stable ( although slightly increased from yesterday). She has no evidence of intraperitoneal contamination at this point with all of her physical exam, laboratory work, and vital signs remaining stable and/or improving. Plan: Continue TPN and only ice chips for now. Repeat laboratory work will be checked in the morning. CT scan of the abdomen and pelvis will be ordered with oral contrast to further assess the nature of the fistula. Magdaleno Philip MD June 21, 2016 15:08
[2016-06-21] MEDS: PANTOPRAZOLE SODIUM 40 MG VIAL IV SCH (16:29)
[2016-06-21] MEDS: FAT EMULSION 20% INJ 250 ML (Daily over 8 hours) IV-CENTRAL SCH (20:14)
[2016-06-21] MEDS: CLINIMIX E 4.25/25 1000 mL- </= 42 mls/hr IV-CENTRAL SCH ×3 (20:14)
[2016-06-22] VITALS: BP 110/69; PULSE 105; RESP 19; TEMP 98.8; O2SAT 97
[2016-06-22 04:00] VITALS: BP 104/65; PULSE 109; RESP 19; TEMP 98; O2SAT 96
[2016-06-22] MEDS: metroNIDAZOLE 500 MG INJ 100 ML IV SCH ×4 (04:26→21:13)
[2016-06-22 06:46] LABS: HEMATOCRIT 26.7 % (35.0-46.0); MEAN CELL VOLUME 81.3 FL (80.0-100.0); MEAN CORPUSCULAR HEMOGLOBIN 27.7 PG (27.0-34.0); MEAN CORPUSCULAR HGB CONC 34.1 % (32.0-36.0); PLATELET COUNT 225 TH/MM3 (150-450); RED BLOOD COUNT 3.28 MIL/MM3 (4.00-5.30); RED CELL DISTRIBUTION WIDTH 15.2 % (11.6-17.2); WHITE BLOOD COUNT 8.8 TH/MM3 (4.0-11.0)
[2016-06-22 06:49] LABS: HEMO FLAGS AUTO DIFF
[2016-06-22 07:03] LABS: BICARBONATE 27.3 MEQ/L (21.0-32.0); POTASSIUM 3.5 MEQ/L (3.5-5.1)
[2016-06-22 07:05] LABS: INDIRECT BILIRUBIN 0.1 MG/DL (0.0-0.8); TOTAL BILIRUBIN ADULT 0.2 MG/DL (0.2-1.0)
[2016-06-22 07:39] LABS: BANDS 7 % (0-6); EOSINOPHILS 5 % (0-4); MYELOCYTES 2 % (0-0); NEUTROPHIL # MANUAL DIFF 4.8 TH/MM3 (1.8-7.7); POLYS (SEG NEUTROPHILS) 45 % (16-70); WBC DIFF SAMPLE 100
[2016-06-22 07:40] LABS: PLATELET ESTIMATE SMEAR NORMAL (NORMAL); PLATELET MORPHOLOGY NORMAL (NORMAL); SCAN/DIFF FINAL DIFF MANUAL
[2016-06-22 08:00] VITALS: BP 104/65; PULSE 105; RESP 16; TEMP 97.6; O2SAT 96
[2016-06-22] MEDS ORDERED: DIATRIZOATE MEGLUM/DIATRIZOATE SOD 9 ML CUP PO ONE (08:15)
[2016-06-22] MEDS: METHADONE HCL 10 MG TAB PO SCH ×2 (08:22→16:17)
[2016-06-22] MEDS: CEFEPIME INJ 1,000 MG in SODIUM CHLORIDE 0.9% INJ 100 ML IV SCH ×2 (08:23→16:17)
[2016-06-22] MEDS: SODIUM CHLORIDE 0.9% FLUSH 10 ML FLUSH IV FLUSH SCH ×2 (08:23→21:14)
[2016-06-22] MEDS: BUDESONIDE-FORMOTEROL 160/4.5 MCG INHALER INH SCH ×2 (09:00→21:00)
[2016-06-22 12:00] VITALS: BP 122/73; PULSE 105; RESP 17; TEMP 98.2; O2SAT 97
--- NOTE | 2016-06-22 14:10 | HHI.PR ---
Subjective Subjective Notes She states she feels better today than yesterday. She has had difficulty getting out of bed due to her severe arthritis as her home meds are not been started yet. She has no significant abdominal pain. Objective Vitals/I&O Vital Signs Date Time Temp Pulse Resp B/P Pulse Ox O2 Delivery O2 Flow Rate FiO2 06/22/16 12:00 98.2 105 17 122/73 97 06/21/16 02:58 21 Labs Laboratory Tests Test 06/22/16 06:10 White Blood Count 8.8 Red Blood Count 3.28 Hemoglobin 9.1 Hematocrit 26.7 Mean Corpuscular Volume 81.3 Mean Corpuscular Hemoglobin 27.7 Mean Corpuscular Hemoglobin 34.1 Concent Red Cell Distribution Width 15.2 Platelet Count 225 Mean Platelet Volume 7.3 Neutrophils (%) (Auto) Lymphocytes (%) (Auto) Monocytes (%) (Auto) Eosinophils (%) (Auto) Basophils (%) (Auto) Neutrophils # (Auto) Lymphocytes # (Auto) Monocytes # (Auto) Eosinophils # (Auto) Basophils # (Auto) CBC Comment AUTO DIFF Differential Total Cells 100 Counted Neutrophils % (Manual) 45 Band Neutrophils % 7 Lymphocytes % 29 Monocytes % 12 Eosinophils % 5 Neutrophils # (Manual) 4.8 Myelocytes 2 Differential Comment FINAL DIFF MANUAL Platelet Estimate NORMAL Platelet Morphology Comment NORMAL Sodium Level 140 Potassium Level 3.5 Chloride Level 106 Carbon Dioxide Level 27.3 Anion Gap 7 Blood Urea Nitrogen 6 Creatinine 0.55 Estimat Glomerular Filtration 117 Rate Random Glucose 129 Calcium Level 7.5 Total Bilirubin 0.2 Direct Bilirubin 0.1 Indirect Bilirubin 0.1 Aspartate Amino Transf 9 (AST/SGOT) Alanine Aminotransferase 9 (ALT/SGPT) Alkaline Phosphatase 71 Total Protein 5.0 Albumin 1.5 Date/Time Procedure Status Source Growth 06/18/16 16:57 Aerobic Blood Culture - Preliminary Resulted Blood Peripheral NO GROWTH IN 4 DAYS 06/18/16 16:57 Anaerobic Blood Culture - Preliminary Resulted Blood Peripheral NO GROWTH IN 4 DAYS Radiology Vital Signs Date Time Temp Pulse Resp B/P Pulse Ox O2 Delivery O2 Flow Rate FiO2 06/20/16 16:00 102 06/20/16 16:00 98.0 102 17 143/67 92 06/20/16 14:00 100 06/20/16 12:00 98.4 102 23 113/72 97 06/20/16 12:00 95 06/20/16 10:00 98 06/20/16 08:00 98.2 101 14 101/67 98 06/20/16 08:00 101 06/20/16 06:00 106 06/20/16 04:00 100.2 115 25 111/77 95 06/20/16 04:00 115 06/20/16 02:00 118 06/20/16 00:57 22 06/20/16 00:00 114 06/20/16 00:00 99.2 114 19 100/64 95 06/19/16 22:00 98.2 107 25 114/58 96 06/19/16 22:00 109 06/19/16 20:00 98.2 106 25 114/58 96 06/19/16 20:00 108 Cardiovascular: Regular Lungs: Clear Abdomen: Non-distended, Non-tender, BS normal Extremities: No edema Narrative Exam The stoma bag has much more gas in it today than yesterday. The output is about the same. A/P Assessment and Plan Impression: Status post ileostomy closure with enterocutaneous fistula. Output remains about the same. CT scan shows no evidence of free fluid within the peritoneal cavity; she has small amount of gas in the distal bowel in the pelvis and in the distal colon as well. Vital signs and laboratory work remained essentially normal. Plan: She will be started on a soft diet today with ensure supplements. Watt catheter will come out tomorrow. I long talk with the patient and her family regarding the hopeful closure of the enterocutaneous fistula over time. Magdaleno Philip MD June 22, 2016 14:10
--- NOTE | 2016-06-22 14:22 | RADRPT ---
EXAM DATE/TIME: 06/22/2016 13:13 [facility] COMPARISON: CT ABDOMEN & PELVIS W/O CONTRAST, June 18, 2016, 10:43. INDICATIONS : Evaluate for fistula, diffuse abdomen pain. ORAL CONTRAST: Prescribed oral contrast ingested. RADIATION DOSE: 12.90 CTDIvol (mGy) MEDICAL HISTORY : Hypertension. Perf bowel, ruptured colon. SURGICAL HISTORY : Colostemy and a reversal. ENCOUNTER: Subsequent ACUITY: 1 week PAIN SCALE: 5/10 LOCATION: Right upper quadrant TECHNIQUE: Volumetric scanning of the abdomen and pelvis was performed. Using automated exposure control and ad justment of the mA and/or kV according to patient size, radiation dose was kept as low as reasonably achievable to obtain optimal diagnostic quality images. FINDINGS: There has been recent right lower quadrant surgery which may be a ostomy reversal. Deep to skin stapl es in this region, there is an area of induration and subcutaneous air which has increased in size fr om the recent previous exam. In the deep subcutaneous tissues and the abdominal wall, an irregular ai r collection is present which is contiguous with a small focus of extraluminal gas in the peritoneal cavity. There is also some air adjacent to the liver edge below the falciform ligament which appears to be extraluminal in location. Elsewhere, mild lung base atelectasis is noted. Gallstones are present in the gallbladder. A right re nal cyst is noted. Pelvis is obscured by streak artifact from hardware in the left hip. CONCLUSION: Some increased air and fluid in the subcutaneous tissues and abdominal wall in the right lower quadra nt in this patient with known enterocutaneous fistula in this region. No separate unexpected findings are identified. The case was discussed with Dr. Philip upon interpretation Nick Nagel MD on June 22, 2016 at 13:58 Board Certified Radiologist. This report was verified electronically.
[2016-06-22 16:00] VITALS: BP 118/68; PULSE 97; RESP 18; TEMP 99.2; O2SAT 97
[2016-06-22] MEDS: PANTOPRAZOLE SODIUM 40 MG VIAL IV SCH (16:18)
[2016-06-22 20:00] VITALS: BP 128/73; PULSE 97; RESP 22; TEMP 99.1; O2SAT 98
[2016-06-22] MEDS: CYCLOBENZAPRINE HCL 10 MG TAB PO SCH (21:10)
[2016-06-22] MEDS: QUEtiapine FUMARATE 25 MG TAB PO SCH (21:10)
[2016-06-22] MEDS: busPIRone HCL 5 MG TAB PO SCH (21:10)
[2016-06-22] MEDS: DICLOFENAC SODIUM 75 MG DELAYED RELEASE TAB PO SCH (21:10)
[2016-06-22] MEDS: FAT EMULSION 20% INJ 250 ML (Daily over 8 hours) IV-CENTRAL SCH (21:13)
[2016-06-22] MEDS: CLINIMIX E 4.25/25 1000 mL- </= 42 mls/hr IV-CENTRAL SCH ×3 (21:13)
[2016-06-23] VITALS (7 sets, daily range): BP systolic 104–123; BP diastolic 59–72; PULSE 96–109; RESP 16–22; TEMP 96.8–97.6; O2SAT 96–99
[2016-06-23] MEDS: CEFEPIME INJ 1,000 MG in SODIUM CHLORIDE 0.9% INJ 100 ML IV SCH ×3 (01:46→17:39)
[2016-06-23] MEDS: METHADONE HCL 10 MG TAB PO SCH ×3 (01:46→16:30)
[2016-06-23] MEDS: LORazepam 2 MG/ML VIAL IV PUSH PRN ×2 (01:55→22:21)
[2016-06-23] MEDS: metroNIDAZOLE 500 MG INJ 100 ML IV SCH ×4 (06:08→20:49)
[2016-06-23] MEDS: BUDESONIDE-FORMOTEROL 160/4.5 MCG INHALER INH SCH ×2 (08:40→20:50)
[2016-06-23] MEDS: SODIUM CHLORIDE 0.9% FLUSH 10 ML FLUSH IV FLUSH SCH ×2 (08:40→20:50)
[2016-06-23] MEDS: DICLOFENAC SODIUM 75 MG DELAYED RELEASE TAB PO SCH ×2 (08:42→20:50)
[2016-06-23] MEDS: PANTOPRAZOLE SODIUM 40 MG VIAL IV SCH (16:30)
[2016-06-23] MEDS: busPIRone HCL 5 MG TAB PO SCH (20:49)
[2016-06-23] MEDS: CLINIMIX E 4.25/25 1000 mL- </= 42 mls/hr IV-CENTRAL SCH ×3 (20:50)
[2016-06-23] MEDS: FAT EMULSION 20% INJ 250 ML (Daily over 8 hours) IV-CENTRAL SCH (20:50)
[2016-06-23] MEDS: CYCLOBENZAPRINE HCL 10 MG TAB PO SCH (20:50)
[2016-06-23] MEDS: QUEtiapine FUMARATE 25 MG TAB PO SCH (20:50)
[2016-06-24] VITALS (7 sets, daily range): BP systolic 85–115; BP diastolic 50–67; PULSE 91–114; RESP 16–20; TEMP 96.4–99; O2SAT 96–99
[2016-06-24] MEDS: CEFEPIME INJ 1,000 MG in SODIUM CHLORIDE 0.9% INJ 100 ML IV SCH ×4 (00:47→23:25)
[2016-06-24] MEDS: METHADONE HCL 10 MG TAB PO SCH ×4 (00:55→23:25)
[2016-06-24] MEDS: metroNIDAZOLE 500 MG INJ 100 ML IV SCH ×4 (04:08→20:38)
[2016-06-24] MEDS: SODIUM CHLORIDE 0.9% FLUSH 10 ML FLUSH IV FLUSH SCH ×2 (08:19→20:37)
[2016-06-24] MEDS: BUDESONIDE-FORMOTEROL 160/4.5 MCG INHALER INH SCH ×2 (08:19→20:37)
[2016-06-24] MEDS: DICLOFENAC SODIUM 75 MG DELAYED RELEASE TAB PO SCH ×2 (08:40→20:38)
--- NOTE | 2016-06-24 11:20 | HHI.PR ---
Subjective Subjective Notes The patient feels better today and has been out of bed frequently. She is tolerating her diet without nausea or vomiting, although she does have occasional pressure in the mid epigastrium when she eats too much. She is tolerating and sure 3 cans per day. She denies any abdominal pain but has passed no flatus or bowel movement. Objective Vitals/I&O Vital Signs Date Time Temp Pulse Resp B/P Pulse Ox O2 Delivery O2 Flow Rate FiO2 06/24/16 08:36 93 94/54 06/24/16 08:00 96.4 16 99 06/21/16 02:58 21 Radiology Vital Signs Date Time Temp Pulse Resp B/P Pulse Ox O2 Delivery O2 Flow Rate FiO2 06/20/16 16:00 102 06/20/16 16:00 98.0 102 17 143/67 92 06/20/16 14:00 100 06/20/16 12:00 98.4 102 23 113/72 97 06/20/16 12:00 95 06/20/16 10:00 98 06/20/16 08:00 98.2 101 14 101/67 98 06/20/16 08:00 101 06/20/16 06:00 106 06/20/16 04:00 100.2 115 25 111/77 95 06/20/16 04:00 115 06/20/16 02:00 118 06/20/16 00:57 22 06/20/16 00:00 114 06/20/16 00:00 99.2 114 19 100/64 95 06/19/16 22:00 98.2 107 25 114/58 96 06/19/16 22:00 109 06/19/16 20:00 98.2 106 25 114/58 96 06/19/16 20:00 108 Cardiovascular: Regular Lungs: Clear Abdomen: Non-distended, Non-tender, BS normal Narrative Exam The wound is elongated somewhat as 1 or 2 mami more came out on the round. Her skin had been somewhat excoriated but she now has an appliance in place which protects the skin. The output has diminished somewhat since yesterday. A/P Assessment and Plan Impression: Status post ileostomy closure with enterocutaneous fistula. She is stable for now and beginning to tolerate a diet. Plan: Continue to increase by mouth intake. TPN should be weaned over the next day or 2 if she is tolerating more of a diet. CBC, BMP, and LFTs have been ordered for the morning Magdaleno Philip MD June 24, 2016 11:20
[2016-06-24] MEDS: PANTOPRAZOLE SODIUM 40 MG VIAL IV SCH (16:54)
[2016-06-24] MEDS: FAT EMULSION 20% INJ 250 ML (Daily over 8 hours) IV-CENTRAL SCH (20:37)
[2016-06-24] MEDS: CLINIMIX E 4.25/25 1000 mL- </= 42 mls/hr IV-CENTRAL SCH ×3 (20:37)
[2016-06-24] MEDS: CYCLOBENZAPRINE HCL 10 MG TAB PO SCH (20:38)
[2016-06-24] MEDS: QUEtiapine FUMARATE 25 MG TAB PO SCH (20:38)
[2016-06-24] MEDS: busPIRone HCL 5 MG TAB PO SCH (20:38)
[2016-06-24] MEDS: LORazepam 2 MG/ML VIAL IV PUSH PRN (21:24)
[2016-06-25] VITALS (7 sets, daily range): BP systolic 96–118; BP diastolic 51–66; PULSE 87–101; RESP 14–20; TEMP 97.1–98.7; O2SAT 95–99
[2016-06-25] MEDS: metroNIDAZOLE 500 MG INJ 100 ML IV SCH ×4 (04:27→19:33)
[2016-06-25 06:46] LABS: AUTOMATED NEUTROPHIL # 4.6 TH/MM3 (1.8-7.7); BASOPHIL % 0.5 % (0.0-2.0); EOSINOPHIL # 0.5 TH/MM3 (0-0.4); EOSINOPHIL % 6.1 % (0.0-4.0); HEMATOCRIT 24.1 % (35.0-46.0); LYMPH % 27.6 % (9.0-44.0); LYMPHOCYTE # 2.2 TH/MM3 (1.0-4.8); MEAN CELL VOLUME 82.1 FL (80.0-100.0); MEAN CORPUSCULAR HEMOGLOBIN 27.6 PG (27.0-34.0); MEAN CORPUSCULAR HGB CONC 33.6 % (32.0-36.0); MONO % 6.7 % (0.0-8.0); NEUT % 59.1 % (16.0-70.0); PLATELET COUNT 279 TH/MM3 (150-450); RED BLOOD COUNT 2.93 MIL/MM3 (4.00-5.30); RED CELL DISTRIBUTION WIDTH 15.3 % (11.6-17.2); WHITE BLOOD COUNT 7.8 TH/MM3 (4.0-11.0)
[2016-06-25 06:58] LABS: HEMO FLAGS AUTO DIFF
[2016-06-25 07:13] LABS: ALKALINE PHOSPHATASE 60 U/L (45-117); ALT (GPT) LESS THAN 6 U/L (10-53); ANION GAP 4 MEQ/L (5-15); AST (GOT) 8 U/L (15-37); BICARBONATE 29.7 MEQ/L (21.0-32.0); BLOOD UREA NITROGEN 8 MG/DL (7-18); CHLORIDE 107 MEQ/L (98-107); GLOMERULAR FILTRATION RATE 100 ML/MIN (>89); INDIRECT BILIRUBIN 0.1 MG/DL (0.0-0.8); POTASSIUM 4.3 MEQ/L (3.5-5.1); SODIUM (NA) 141 MEQ/L (136-145); TOTAL BILIRUBIN ADULT 0.2 MG/DL (0.2-1.0)
[2016-06-25] MEDS: BUDESONIDE-FORMOTEROL 160/4.5 MCG INHALER INH SCH ×2 (09:02→19:32)
[2016-06-25] MEDS: DICLOFENAC SODIUM 75 MG DELAYED RELEASE TAB PO SCH ×2 (09:03→19:33)
[2016-06-25] MEDS: CEFEPIME INJ 1,000 MG in SODIUM CHLORIDE 0.9% INJ 100 ML IV SCH ×3 (09:03→23:21)
[2016-06-25] MEDS: METHADONE HCL 10 MG TAB PO SCH ×3 (09:03→23:20)
[2016-06-25] MEDS: SODIUM CHLORIDE 0.9% FLUSH 10 ML FLUSH IV FLUSH SCH ×2 (09:04→19:32)
[2016-06-25 09:35] LABS: BANDS 3 % (0-6); BASOPHILS 1 % (0-2); EOSINOPHILS 6 % (0-4); MYELOCYTES 1 % (0-0); NEUTROPHIL # MANUAL DIFF 4.3 TH/MM3 (1.8-7.7); PLATELET ESTIMATE SMEAR NORMAL (NORMAL); PLATELET MORPHOLOGY NORMAL (NORMAL); POLYS (SEG NEUTROPHILS) 51 % (16-70); SCAN/DIFF FINAL DIFF MANUAL; WBC DIFF SAMPLE 100
--- NOTE | 2016-06-25 11:36 | HHI.PR ---
Subjective Subjective Notes Tolerating diet fairly well. Bp and uop a little on the low side.Up in chair, ambulating independently. Objective Vitals/I&O Vital Signs Date Time Temp Pulse Resp B/P Pulse Ox O2 Delivery O2 Flow Rate FiO2 06/25/16 08:00 97.1 89 18 97/51 97 Labs Laboratory Tests Test 06/25/16 04:49 White Blood Count 7.8 Red Blood Count 2.93 Hemoglobin 8.1 Hematocrit 24.1 Mean Corpuscular Volume 82.1 Mean Corpuscular Hemoglobin 27.6 Mean Corpuscular Hemoglobin 33.6 Concent Red Cell Distribution Width 15.3 Platelet Count 279 Mean Platelet Volume 7.6 Neutrophils (%) (Auto) 59.1 Lymphocytes (%) (Auto) 27.6 Monocytes (%) (Auto) 6.7 Eosinophils (%) (Auto) 6.1 Basophils (%) (Auto) 0.5 Neutrophils # (Auto) 4.6 Lymphocytes # (Auto) 2.2 Monocytes # (Auto) 0.5 Eosinophils # (Auto) 0.5 Basophils # (Auto) 0.0 CBC Comment AUTO DIFF Differential Total Cells 100 Counted Neutrophils % (Manual) 51 Band Neutrophils % 3 Lymphocytes % 35 Monocytes % 3 Eosinophils % 6 Basophils % 1 Neutrophils # (Manual) 4.3 Myelocytes 1 Differential Comment FINAL DIFF MANUAL Platelet Estimate NORMAL Platelet Morphology Comment NORMAL Red Cell Morphology Comment NORMAL Sodium Level 141 Potassium Level 4.3 Chloride Level 107 Carbon Dioxide Level 29.7 Anion Gap 4 Blood Urea Nitrogen 8 Creatinine 0.63 Estimat Glomerular Filtration 100 Rate Random Glucose 112 Calcium Level 8.5 Total Bilirubin 0.2 Direct Bilirubin 0.1 Indirect Bilirubin 0.1 Aspartate Amino Transf 8 (AST/SGOT) Alanine Aminotransferase LESS THAN 6 (ALT/SGPT) Alkaline Phosphatase 60 Total Protein 5.0 Albumin 1.6 Radiology Vital Signs Date Time Temp Pulse Resp B/P Pulse Ox O2 Delivery O2 Flow Rate FiO2 06/20/16 16:00 102 06/20/16 16:00 98.0 102 17 143/67 92 06/20/16 14:00 100 06/20/16 12:00 98.4 102 23 113/72 97 06/20/16 12:00 95 06/20/16 10:00 98 06/20/16 08:00 98.2 101 14 101/67 98 06/20/16 08:00 101 06/20/16 06:00 106 06/20/16 04:00 100.2 115 25 111/77 95 06/20/16 04:00 115 06/20/16 02:00 118 06/20/16 00:57 22 06/20/16 00:00 114 06/20/16 00:00 99.2 114 19 100/64 95 06/19/16 22:00 98.2 107 25 114/58 96 06/19/16 22:00 109 06/19/16 20:00 98.2 106 25 114/58 96 06/19/16 20:00 108 Narrative Exam NAD, awake and alert nonlabored breathing Abd: Dark slightly maroon stool in bag, abd soft nontender A/P Assessment and Plan 50 yo F S/p ileostomy takedown with enterocutaneous fistula Tolerating diet fairly well. D/c tpn. Encourage oral hydration. Cont IV antibiotics. Saroj Kessler MD June 25, 2016 11:36
[2016-06-25] MEDS: busPIRone HCL 5 MG TAB PO SCH (19:32)
[2016-06-25] MEDS: CYCLOBENZAPRINE HCL 10 MG TAB PO SCH (19:33)
[2016-06-25] MEDS: QUEtiapine FUMARATE 25 MG TAB PO SCH (19:33)
[2016-06-25] MEDS: LORazepam 2 MG/ML VIAL IV PUSH PRN (22:15)
[2016-06-26] VITALS (7 sets, daily range): BP systolic 93–122; BP diastolic 53–72; PULSE 95–115; RESP 18–22; TEMP 97.6–98.7; O2SAT 95–98
[2016-06-26] MEDS: metroNIDAZOLE 500 MG INJ 100 ML IV SCH ×4 (05:30→19:52)
[2016-06-26] MEDS: DICLOFENAC SODIUM 75 MG DELAYED RELEASE TAB PO SCH ×2 (08:15→19:52)
[2016-06-26] MEDS: METHADONE HCL 10 MG TAB PO SCH ×2 (08:15→16:13)
[2016-06-26] MEDS: PANTOPRAZOLE SOD 40 MG DELAYED RELEASE TAB PO SCH (08:15)
[2016-06-26] MEDS: CEFEPIME INJ 1,000 MG in SODIUM CHLORIDE 0.9% INJ 100 ML IV SCH ×2 (08:16→17:14)
[2016-06-26] MEDS: BUDESONIDE-FORMOTEROL 160/4.5 MCG INHALER INH SCH ×2 (08:17→19:51)
[2016-06-26] MEDS: SODIUM CHLORIDE 0.9% FLUSH 10 ML FLUSH IV FLUSH SCH ×2 (08:17→19:51)
--- NOTE | 2016-06-26 13:02 | HHI.PR ---
Subjective Subjective Notes comfortable ? flatus Objective Vitals/I&O Vital Signs Date Time Temp Pulse Resp B/P Pulse Ox O2 Delivery O2 Flow Rate FiO2 06/26/16 12:00 98.4 99 22 110/66 96 Radiology Vital Signs Date Time Temp Pulse Resp B/P Pulse Ox O2 Delivery O2 Flow Rate FiO2 06/20/16 16:00 102 06/20/16 16:00 98.0 102 17 143/67 92 06/20/16 14:00 100 06/20/16 12:00 98.4 102 23 113/72 97 06/20/16 12:00 95 06/20/16 10:00 98 06/20/16 08:00 98.2 101 14 101/67 98 06/20/16 08:00 101 06/20/16 06:00 106 06/20/16 04:00 100.2 115 25 111/77 95 06/20/16 04:00 115 06/20/16 02:00 118 06/20/16 00:57 22 06/20/16 00:00 114 06/20/16 00:00 99.2 114 19 100/64 95 06/19/16 22:00 98.2 107 25 114/58 96 06/19/16 22:00 109 06/19/16 20:00 98.2 106 25 114/58 96 06/19/16 20:00 108 Cardiovascular: Regular Extremities: Perfused Narrative Exam brown drainage from wound A/P Assessment and Plan patient with enterocutaneous fistula cont with soft diet ambulate in [facility] Shiva Urias MD June 26, 2016 13:02
[2016-06-26] MEDS: QUEtiapine FUMARATE 25 MG TAB PO SCH (19:52)
[2016-06-26] MEDS: CYCLOBENZAPRINE HCL 10 MG TAB PO SCH (19:52)
[2016-06-26] MEDS: busPIRone HCL 5 MG TAB PO SCH (19:52)
[2016-06-26] MEDS: LORazepam 2 MG/ML VIAL IV PUSH PRN (21:36)
[2016-06-27] VITALS (7 sets, daily range): BP systolic 103–129; BP diastolic 52–63; PULSE 92–117; RESP 16–20; TEMP 96.8–99.1; O2SAT 92–97
[2016-06-27] MEDS: METHADONE HCL 10 MG TAB PO SCH ×4 (00:41→23:39)
[2016-06-27] MEDS: CEFEPIME INJ 1,000 MG in SODIUM CHLORIDE 0.9% INJ 100 ML IV SCH ×2 (00:41→08:49)
[2016-06-27] MEDS: metroNIDAZOLE 500 MG INJ 100 ML IV SCH ×2 (04:21→08:49)
[2016-06-27] MEDS: DICLOFENAC SODIUM 75 MG DELAYED RELEASE TAB PO SCH ×2 (08:48→21:35)
[2016-06-27] MEDS: PANTOPRAZOLE SOD 40 MG DELAYED RELEASE TAB PO SCH (08:48)
[2016-06-27] MEDS: SODIUM CHLORIDE 0.9% FLUSH 10 ML FLUSH IV FLUSH SCH ×2 (08:49→21:35)
[2016-06-27] MEDS: BUDESONIDE-FORMOTEROL 160/4.5 MCG INHALER INH SCH ×2 (08:49→21:34)
--- NOTE | 2016-06-27 12:32 | HHI.PR ---
Subjective Subjective Notes No complaints. She is feeling a little depressed about everything going on. Objective Vitals/I&O Vital Signs Date Time Temp Pulse Resp B/P Pulse Ox O2 Delivery O2 Flow Rate FiO2 06/27/16 12:00 97.4 101 18 121/62 96 Radiology Vital Signs Date Time Temp Pulse Resp B/P Pulse Ox O2 Delivery O2 Flow Rate FiO2 06/20/16 16:00 102 06/20/16 16:00 98.0 102 17 143/67 92 06/20/16 14:00 100 06/20/16 12:00 98.4 102 23 113/72 97 06/20/16 12:00 95 06/20/16 10:00 98 06/20/16 08:00 98.2 101 14 101/67 98 06/20/16 08:00 101 06/20/16 06:00 106 06/20/16 04:00 100.2 115 25 111/77 95 06/20/16 04:00 115 06/20/16 02:00 118 06/20/16 00:57 22 06/20/16 00:00 114 06/20/16 00:00 99.2 114 19 100/64 95 06/19/16 22:00 98.2 107 25 114/58 96 06/19/16 22:00 109 06/19/16 20:00 98.2 106 25 114/58 96 06/19/16 20:00 108 Narrative Exam NAD, awake and alert nonlabored breathing Abd: Dark stool in bag, abd soft nontender A/P Assessment and Plan 50 yo F S/p ileostomy takedown with enterocutaneous fistula Will ask dining car conductor for calorie count. D/c mami. Cont ostomy wound land surveying manager bag. Change antibiotics to levaquin/flagyl po. Possible dc later this week. ChecoSaroj soto MD June 27, 2016 12:32
[2016-06-27] MEDS: metroNIDAZOLE 500 MG TAB PO SCH ×2 (16:08→23:39)
[2016-06-27] MEDS: busPIRone HCL 5 MG TAB PO SCH (21:35)
[2016-06-27] MEDS: QUEtiapine FUMARATE 25 MG TAB PO SCH (21:35)
[2016-06-27] MEDS: CYCLOBENZAPRINE HCL 10 MG TAB PO SCH (21:35)
[2016-06-27] MEDS: LORazepam 2 MG/ML VIAL IV PUSH PRN (23:39)
[2016-06-28] VITALS (7 sets, daily range): BP systolic 95–119; BP diastolic 53–71; PULSE 80–106; RESP 16–20; TEMP 97.7–99.5; O2SAT 95–99
[2016-06-28 04:15] LABS: AUTOMATED NEUTROPHIL # 3.4 TH/MM3 (1.8-7.7); BASOPHIL # 0.1 TH/MM3 (0-0.2); BASOPHIL % 0.8 % (0.0-2.0); EOSINOPHIL # 0.2 TH/MM3 (0-0.4); EOSINOPHIL % 3.2 % (0.0-4.0); HEMO FLAGS DIFF FINAL; LYMPH % 42.2 % (9.0-44.0); LYMPHOCYTE # 3.2 TH/MM3 (1.0-4.8); MEAN CELL VOLUME 81.8 FL (80.0-100.0); MEAN CORPUSCULAR HEMOGLOBIN 28.9 PG (27.0-34.0); MEAN CORPUSCULAR HGB CONC 35.3 % (32.0-36.0); MONO % 8.3 % (0.0-8.0); NEUT % 45.5 % (16.0-70.0); PLATELET COUNT 470 TH/MM3 (150-450); RED BLOOD COUNT 3.05 MIL/MM3 (4.00-5.30); RED CELL DISTRIBUTION WIDTH 14.5 % (11.6-17.2); WHITE BLOOD COUNT 7.6 TH/MM3 (4.0-11.0)
[2016-06-28] MEDS: DICLOFENAC SODIUM 75 MG DELAYED RELEASE TAB PO SCH ×2 (08:16→21:05)
[2016-06-28] MEDS: BUDESONIDE-FORMOTEROL 160/4.5 MCG INHALER INH SCH ×2 (08:16→22:32)
[2016-06-28] MEDS: METHADONE HCL 10 MG TAB PO SCH ×2 (08:16→16:31)
[2016-06-28] MEDS: PANTOPRAZOLE SOD 40 MG DELAYED RELEASE TAB PO SCH (08:16)
[2016-06-28] MEDS: metroNIDAZOLE 500 MG TAB PO SCH ×2 (08:16→16:30)
[2016-06-28] MEDS: SODIUM CHLORIDE 0.9% FLUSH 10 ML FLUSH IV FLUSH SCH ×2 (08:16→21:07)
[2016-06-28] MEDS: LEVOFLOXACIN 750 MG TAB PO SCH (08:17)
--- NOTE | 2016-06-28 09:44 | HHI.PR ---
Subjective Subjective Notes Continues to improve. This morning she ate eggs and had ensure. Objective Vitals/I&O Vital Signs Date Time Temp Pulse Resp B/P Pulse Ox O2 Delivery O2 Flow Rate FiO2 06/28/16 08:00 98.8 80 18 95/56 98 Labs Laboratory Tests Test 06/28/16 04:01 White Blood Count 7.6 Red Blood Count 3.05 Hemoglobin 8.8 Hematocrit 25.0 Mean Corpuscular Volume 81.8 Mean Corpuscular Hemoglobin 28.9 Mean Corpuscular Hemoglobin 35.3 Concent Red Cell Distribution Width 14.5 Platelet Count 470 Mean Platelet Volume 7.1 Neutrophils (%) (Auto) 45.5 Lymphocytes (%) (Auto) 42.2 Monocytes (%) (Auto) 8.3 Eosinophils (%) (Auto) 3.2 Basophils (%) (Auto) 0.8 Neutrophils # (Auto) 3.4 Lymphocytes # (Auto) 3.2 Monocytes # (Auto) 0.6 Eosinophils # (Auto) 0.2 Basophils # (Auto) 0.1 CBC Comment DIFF FINAL Differential Comment Radiology Vital Signs Date Time Temp Pulse Resp B/P Pulse Ox O2 Delivery O2 Flow Rate FiO2 06/20/16 16:00 102 06/20/16 16:00 98.0 102 17 143/67 92 06/20/16 14:00 100 06/20/16 12:00 98.4 102 23 113/72 97 06/20/16 12:00 95 06/20/16 10:00 98 06/20/16 08:00 98.2 101 14 101/67 98 06/20/16 08:00 101 06/20/16 06:00 106 06/20/16 04:00 100.2 115 25 111/77 95 06/20/16 04:00 115 06/20/16 02:00 118 06/20/16 00:57 22 06/20/16 00:00 114 06/20/16 00:00 99.2 114 19 100/64 95 06/19/16 22:00 98.2 107 25 114/58 96 06/19/16 22:00 109 06/19/16 20:00 98.2 106 25 114/58 96 06/19/16 20:00 108 Narrative Exam NAD, awake and alert nonlabored breathing Abd: Dark stool in bag, abd soft nontender A/P Assessment and Plan 50 yo F S/p ileostomy takedown with enterocutaneous fistula Calorie count underway. Cont ostomy wound manager beverage bag. Will ask wound care nurse to eval for any other options for wound management per pt request. Levaquin/flagyl po. Home with C vs SNF later this week. Checo,Saroj PEPE June 28, 2016 09:44
[2016-06-28] MEDS: busPIRone HCL 5 MG TAB PO SCH (21:05)
[2016-06-28] MEDS: QUEtiapine FUMARATE 25 MG TAB PO SCH (21:05)
[2016-06-28] MEDS: CYCLOBENZAPRINE HCL 10 MG TAB PO SCH (21:05)
[2016-06-28] MEDS: LORazepam 2 MG/ML VIAL IV PUSH PRN (22:33)
[2016-06-29] MEDS: METHADONE HCL 10 MG TAB PO SCH ×3 (00:30→17:12)
[2016-06-29] MEDS: metroNIDAZOLE 500 MG TAB PO SCH ×3 (00:30→17:11)
[2016-06-29 04:13] VITALS: BP 95/55; PULSE 86; RESP 20; TEMP 99.1; O2SAT 95
[2016-06-29 08:00] VITALS: BP 98/64; PULSE 102; RESP 17; TEMP 97.3; O2SAT 96
[2016-06-29] MEDS: BUDESONIDE-FORMOTEROL 160/4.5 MCG INHALER INH SCH ×2 (08:27→21:00)
[2016-06-29] MEDS: LEVOFLOXACIN 750 MG TAB PO SCH (08:27)
[2016-06-29] MEDS: DICLOFENAC SODIUM 75 MG DELAYED RELEASE TAB PO SCH ×2 (08:27→21:24)
[2016-06-29] MEDS: PANTOPRAZOLE SOD 40 MG DELAYED RELEASE TAB PO SCH (08:27)
[2016-06-29] MEDS: SODIUM CHLORIDE 0.9% FLUSH 10 ML FLUSH IV FLUSH SCH ×2 (08:28→21:00)
--- NOTE | 2016-06-29 08:38 | HHI.FF ---
Face to Face Verification Diagnosis: (1) Enterocutaneous fistula Home Health Nursing Order: Signs/symptoms of disease process Wound care and dressing changes Nursing assessment with vital signs Instructions: ostomy appliance to EC fistula site, protect surrounding skin, use paste as needed, minimize the size of the opening as much as possible so that the skin is protect I have seen patient Mercedez Gregorio on 06/29/16. My clinical findings support the need for the requested home health care services because: Ltd mobility - disease progression Deconditioned w/ increased weakness Limited ability to care for self I certify that my clinical findings support that this patient is homebound because: Post-op weakness ChecoSaroj MD June 29, 2016 08:38
--- NOTE | 2016-06-29 08:39 | HHI.PR ---
Subjective Subjective Notes Stable. Still eating fairly well I think. Had some tilapia. Objective Vitals/I&O Vital Signs Date Time Temp Pulse Resp B/P Pulse Ox O2 Delivery O2 Flow Rate FiO2 06/29/16 04:13 99.1 86 20 95/55 95 Radiology Vital Signs Date Time Temp Pulse Resp B/P Pulse Ox O2 Delivery O2 Flow Rate FiO2 06/20/16 16:00 102 06/20/16 16:00 98.0 102 17 143/67 92 06/20/16 14:00 100 06/20/16 12:00 98.4 102 23 113/72 97 06/20/16 12:00 95 06/20/16 10:00 98 06/20/16 08:00 98.2 101 14 101/67 98 06/20/16 08:00 101 06/20/16 06:00 106 06/20/16 04:00 100.2 115 25 111/77 95 06/20/16 04:00 115 06/20/16 02:00 118 06/20/16 00:57 22 06/20/16 00:00 114 06/20/16 00:00 99.2 114 19 100/64 95 06/19/16 22:00 98.2 107 25 114/58 96 06/19/16 22:00 109 06/19/16 20:00 98.2 106 25 114/58 96 06/19/16 20:00 108 Narrative Exam NAD, awake and alert nonlabored breathing Abd: stool in bag, abd soft nontender A/P Assessment and Plan 50 yo F S/p ileostomy takedown with enterocutaneous fistula Calorie count underway. Cont ostomy wound brand strategy manager bag. Levaquin/flagyl po. D/c central line. Plan d/c home at end of week. Saroj Kessler MD June 29, 2016 08:39
[2016-06-29 12:00] VITALS: BP 95/55; PULSE 92; RESP 18; TEMP 97.4; O2SAT 97
[2016-06-29 16:00] VITALS: BP 109/65; PULSE 92; RESP 17; TEMP 98.8; O2SAT 99
[2016-06-29 20:00] VITALS: BP 107/67; PULSE 104; RESP 20; TEMP 98.5; O2SAT 97
[2016-06-29] MEDS: CYCLOBENZAPRINE HCL 10 MG TAB PO SCH (21:24)
[2016-06-29] MEDS: QUEtiapine FUMARATE 25 MG TAB PO SCH (21:24)
[2016-06-29] MEDS: busPIRone HCL 5 MG TAB PO SCH (21:24)
[2016-06-29] MEDS: LORazepam 0.5 MG TAB PO PRN (21:59)
[2016-06-30] VITALS (7 sets, daily range): BP systolic 96–115; BP diastolic 52–65; PULSE 83–110; RESP 17–19; TEMP 96.9–98.4; O2SAT 93–98
[2016-06-30] MEDS: METHADONE HCL 10 MG TAB PO SCH ×4 (00:01→23:50)
[2016-06-30] MEDS: metroNIDAZOLE 500 MG TAB PO SCH ×4 (00:01→23:50)
[2016-06-30] MEDS: PANTOPRAZOLE SOD 40 MG DELAYED RELEASE TAB PO SCH (08:59)
[2016-06-30] MEDS: BUDESONIDE-FORMOTEROL 160/4.5 MCG INHALER INH SCH ×2 (08:59→20:12)
[2016-06-30] MEDS: LEVOFLOXACIN 750 MG TAB PO SCH (08:59)
[2016-06-30] MEDS: SODIUM CHLORIDE 0.9% FLUSH 10 ML FLUSH IV FLUSH SCH ×2 (09:00→20:13)
[2016-06-30] MEDS: DICLOFENAC SODIUM 75 MG DELAYED RELEASE TAB PO SCH ×2 (09:00→20:13)
--- NOTE | 2016-06-30 09:15 | HHI.PR ---
Subjective Subjective Notes No new issues. Has pain at appliance site. Objective Vitals/I&O Vital Signs Date Time Temp Pulse Resp B/P Pulse Ox O2 Delivery O2 Flow Rate FiO2 06/30/16 08:00 96.9 94 17 98/65 93 Radiology Vital Signs Date Time Temp Pulse Resp B/P Pulse Ox O2 Delivery O2 Flow Rate FiO2 06/20/16 16:00 102 06/20/16 16:00 98.0 102 17 143/67 92 06/20/16 14:00 100 06/20/16 12:00 98.4 102 23 113/72 97 06/20/16 12:00 95 06/20/16 10:00 98 06/20/16 08:00 98.2 101 14 101/67 98 06/20/16 08:00 101 06/20/16 06:00 106 06/20/16 04:00 100.2 115 25 111/77 95 06/20/16 04:00 115 06/20/16 02:00 118 06/20/16 00:57 22 06/20/16 00:00 114 06/20/16 00:00 99.2 114 19 100/64 95 06/19/16 22:00 98.2 107 25 114/58 96 06/19/16 22:00 109 06/19/16 20:00 98.2 106 25 114/58 96 06/19/16 20:00 108 Narrative Exam NAD, awake and alert nonlabored breathing Abd: stool in bag, abd soft nontender A/P Assessment and Plan 50 yo F S/p ileostomy takedown with enterocutaneous fistula Calorie count revealed adequate intake of calories and protein. Cont ostomy wound manager risk management bag. Levaquin/flagyl po. Dr. Philip to see tomorrow. Checo,Saroj PEPE June 30, 2016 09:15
[2016-06-30] MEDS: QUEtiapine FUMARATE 25 MG TAB PO SCH (20:13)
[2016-06-30] MEDS: busPIRone HCL 5 MG TAB PO SCH (20:13)
[2016-06-30] MEDS: CYCLOBENZAPRINE HCL 10 MG TAB PO SCH (20:13)
[2016-06-30] MEDS: LORazepam 0.5 MG TAB PO PRN (22:47)
[2016-07-01] VITALS (9 sets, daily range): BP systolic 91–124; BP diastolic 49–59; PULSE 78–110; RESP 16–20; TEMP 96.5–98.6; O2SAT 75–98
[2016-07-01] MEDS: metroNIDAZOLE 500 MG TAB PO SCH ×2 (08:24→17:05)
[2016-07-01] MEDS: DICLOFENAC SODIUM 75 MG DELAYED RELEASE TAB PO SCH ×2 (08:24→21:24)
[2016-07-01] MEDS: PANTOPRAZOLE SOD 40 MG DELAYED RELEASE TAB PO SCH (08:24)
[2016-07-01] MEDS: METHADONE HCL 10 MG TAB PO SCH ×2 (08:25→17:05)
[2016-07-01] MEDS: SODIUM CHLORIDE 0.9% FLUSH 10 ML FLUSH IV FLUSH SCH ×2 (08:25→21:00)
[2016-07-01] MEDS: BUDESONIDE-FORMOTEROL 160/4.5 MCG INHALER INH SCH ×2 (08:25→21:00)
[2016-07-01] MEDS: LEVOFLOXACIN 750 MG TAB PO SCH (08:26)
--- NOTE | 2016-07-01 14:51 | HHI.PR ---
Subjective Subjective Notes The patient has no complaints today. She is still not pass any flatus or bowel movements. Objective Vitals/I&O Vital Signs Date Time Temp Pulse Resp B/P Pulse Ox O2 Delivery O2 Flow Rate FiO2 07/01/16 14:23 18 07/01/16 12:00 97.6 82 91/54 96 Radiology Vital Signs Date Time Temp Pulse Resp B/P Pulse Ox O2 Delivery O2 Flow Rate FiO2 06/20/16 16:00 102 06/20/16 16:00 98.0 102 17 143/67 92 06/20/16 14:00 100 06/20/16 12:00 98.4 102 23 113/72 97 06/20/16 12:00 95 06/20/16 10:00 98 06/20/16 08:00 98.2 101 14 101/67 98 06/20/16 08:00 101 06/20/16 06:00 106 06/20/16 04:00 100.2 115 25 111/77 95 06/20/16 04:00 115 06/20/16 02:00 118 06/20/16 00:57 22 06/20/16 00:00 114 06/20/16 00:00 99.2 114 19 100/64 95 06/19/16 22:00 98.2 107 25 114/58 96 06/19/16 22:00 109 06/19/16 20:00 98.2 106 25 114/58 96 06/19/16 20:00 108 Cardiovascular: Regular Lungs: Clear Abdomen: Non-distended, Non-tender, BS normal Extremities: No edema Narrative Exam The wound is elongated somewhat as 1 or 2 mami more came out on the round. Her skin had been somewhat excoriated but she now has an appliance in place which protects the skin. The output has diminished somewhat since yesterday. A/P Assessment and Plan Impression: Status post ileostomy closure with enterocutaneous fistula. She is stable for now and tolerating a diet. She still has no bowel activity other than output through the fistula, but overall she is having no problems. Plan: Gastrografin upper GI series with small bowel follow-through in the morning to evaluate distal obstruction. Magdaleno Philip MD July 01, 2016 14:51
[2016-07-01] MEDS: QUEtiapine FUMARATE 25 MG TAB PO SCH (21:24)
[2016-07-01] MEDS: CYCLOBENZAPRINE HCL 10 MG TAB PO SCH (21:24)
[2016-07-01] MEDS: busPIRone HCL 5 MG TAB PO SCH (21:25)
[2016-07-01] MEDS: LORazepam 0.5 MG TAB PO PRN (22:39)
[2016-07-02] VITALS (7 sets, daily range): BP systolic 90–126; BP diastolic 50–79; PULSE 98–115; RESP 17–22; TEMP 96.9–98.9; O2SAT 93–98
[2016-07-02] MEDS: metroNIDAZOLE 500 MG TAB PO SCH ×4 (00:02→23:47)
[2016-07-02] MEDS: METHADONE HCL 10 MG TAB PO SCH ×4 (00:02→23:47)
[2016-07-02] MEDS: BUDESONIDE-FORMOTEROL 160/4.5 MCG INHALER INH SCH ×2 (09:00→19:22)
[2016-07-02] MEDS: SODIUM CHLORIDE 0.9% FLUSH 10 ML FLUSH IV FLUSH SCH ×2 (09:00→19:23)
[2016-07-02] MEDS ORDERED: DIATRIZOATE MEGLUM/DIATRIZOATE SOD 120 ML BTL (for RAD DIAG) PO ONE (09:06)
[2016-07-02] MEDS: LEVOFLOXACIN 750 MG TAB PO SCH (10:18)
[2016-07-02] MEDS: PANTOPRAZOLE SOD 40 MG DELAYED RELEASE TAB PO SCH (10:18)
[2016-07-02] MEDS: DICLOFENAC SODIUM 75 MG DELAYED RELEASE TAB PO SCH ×2 (10:19→19:22)
--- NOTE | 2016-07-02 12:20 | RADRPT ---
EXAM DATE/TIME: 07/02/2016 08:31 [facility] COMPARISON: CT ABDOMEN & PELVIS W/O CONTRAST, June 22, 2016, 13:13. INDICATIONS : Obstruction FLUORO TIME: 1.6 minutes IMAGE COUNT: 25 CONTRAST: Gastronathalia IMAGING TIME(S): 15 min, 30 min, 45 min, 1 hr, 2 hr, 3 hrs MEDICAL HISTORY : Hypertension. Perf bowel, ruptured colon. SURGICAL HISTORY : Ileostomy ENCOUNTER: Subsequent ACUITY: 1 week PAIN SCORE: 5/10 LOCATION: Bilateral lower quadrant FINDINGS: Preliminary film is unremarkable. Examination of the swallowing function demonstrates no evidence of aspiration or penetration. The sandrita dy of the esophagus is unremarkable. No reflux or hiatal hernia is identified. Examination of the stomach demonstrates no evidence of intraluminal mass or extrinsic compression. T he gastric volume appears normal and there are no findings of ulceration. The mucosal pattern appear s normal. The duodenal bulb and sweep appear normal. The visualized small bowel is unremarkable. No bowel obst ruction. Contrast is less concentrated on later images proceeding through the fistula in the right ab domen. CONCLUSION: No bowel obstruction. Contrast proceeding into the fistula on later images Dhiraj Reza MD on July 02, 2016 at 12:16 Board Certified Radiologist. This report was verified electronically.
--- NOTE | 2016-07-02 15:33 | HHI.PR ---
Subjective Subjective Notes Patient has no complaints today. She had mild discomfort during the Gastrografin GI series, but has now been feeling better. She had a lot of output from the fistula during that GI series; she has not had any flatus or bowel movements. Objective Vitals/I&O Vital Signs Date Time Temp Pulse Resp B/P Pulse Ox O2 Delivery O2 Flow Rate FiO2 07/02/16 12:00 96.9 115 17 126/79 97 Radiology Vital Signs Date Time Temp Pulse Resp B/P Pulse Ox O2 Delivery O2 Flow Rate FiO2 06/20/16 16:00 102 06/20/16 16:00 98.0 102 17 143/67 92 06/20/16 14:00 100 06/20/16 12:00 98.4 102 23 113/72 97 06/20/16 12:00 95 06/20/16 10:00 98 06/20/16 08:00 98.2 101 14 101/67 98 06/20/16 08:00 101 06/20/16 06:00 106 06/20/16 04:00 100.2 115 25 111/77 95 06/20/16 04:00 115 06/20/16 02:00 118 06/20/16 00:57 22 06/20/16 00:00 114 06/20/16 00:00 99.2 114 19 100/64 95 06/19/16 22:00 98.2 107 25 114/58 96 06/19/16 22:00 109 06/19/16 20:00 98.2 106 25 114/58 96 06/19/16 20:00 108 Last 24 hours Impressions Upper GI and Small Bowel X-Ray 07/02/16 0800 Signed Impressions: Service Date/Time: Saturday, July 02, 2016 08:31 - CONCLUSION: No bowel obstruction. Contrast proceeding into the fistula on later images Dhiraj Reza MD Cardiovascular: Regular Lungs: Clear Abdomen: Non-distended, Non-tender, BS normal Extremities: No edema Narrative Exam The wound is elongated somewhat as 1 or 2 mami more came out on the round. Her skin had been somewhat excoriated but she now has an appliance in place which protects the skin. The output has diminished somewhat since yesterday. A/P Assessment and Plan Impression: Status post ileostomy closure with enterocutaneous fistula. She is stable for now and tolerating a diet. There was increased output from the fistula during the GI series with Gastrografin. She still has had no flatus or bowel movement consistent with possible complete obstruction at the point of the fistula. She has no abdominal distention.. Plan: Follow-up flat and upright abdominal films later today. She will also have laps obtained in the morning. Magdaleno Philip MD July 02, 2016 15:33
[2016-07-02] MEDS: busPIRone HCL 5 MG TAB PO SCH (19:22)
[2016-07-02] MEDS: QUEtiapine FUMARATE 25 MG TAB PO SCH (19:22)
[2016-07-02] MEDS: CYCLOBENZAPRINE HCL 10 MG TAB PO SCH (19:22)
--- NOTE | 2016-07-02 20:48 | RADRPT ---
EXAM DATE/TIME: 07/02/2016 19:05 [facility] COMPARISON: No previous studies available for comparison. INDICATIONS : Obstruction. MEDICAL HISTORY : Hypertension. Perforated bowel, ruptured colon. SURGICAL HISTORY : Ileostomy. ENCOUNTER: Subsequent ACUITY: 1 week PAIN SCORE: 5/10 LOCATION: Bilateral lower quadrant. FINDINGS: No air-filled dilated loops of small or large bowel are noted. There is no free intraperitoneal air. A right lower quadrant ostomy is noted. Left hip replacement is noted. Degenerative changes and s coliosis of the thoracolumbar spine are noted. No abnormal calcifications are noted within the abdom en or pelvis. CONCLUSION: 1. No evidence of bowel obstruction, ileus or perforation. 2. Degenerative changes and scoliosis of the thoracolumbar spine. Vince Quevedo MD on July 02, 2016 at 20:40 Board Certified Radiologist. This report was verified electronically.
[2016-07-02] MEDS: LORazepam 0.5 MG TAB PO PRN (21:56)
[2016-07-03] VITALS (8 sets, daily range): BP systolic 94–114; BP diastolic 50–63; PULSE 84–112; RESP 18–21; TEMP 97.7–99.2; O2SAT 94–97
[2016-07-03 05:39] LABS: AUTOMATED NEUTROPHIL # 4.4 TH/MM3 (1.8-7.7); BASOPHIL # 0.3 TH/MM3 (0-0.2); BASOPHIL % 3.1 % (0.0-2.0); EOSINOPHIL # 0.2 TH/MM3 (0-0.4); EOSINOPHIL % 2.6 % (0.0-4.0); HEMATOCRIT 30.9 % (35.0-46.0); HEMO FLAGS DIFF FINAL; LYMPH % 33.9 % (9.0-44.0); MEAN CELL VOLUME 82.8 FL (80.0-100.0); MEAN CORPUSCULAR HEMOGLOBIN 26.6 PG (27.0-34.0); MEAN CORPUSCULAR HGB CONC 32.2 % (32.0-36.0); MONO % 10.2 % (0.0-8.0); NEUT % 50.2 % (16.0-70.0); PLATELET COUNT 514 TH/MM3 (150-450); RED BLOOD COUNT 3.73 MIL/MM3 (4.00-5.30); RED CELL DISTRIBUTION WIDTH 15.4 % (11.6-17.2); WHITE BLOOD COUNT 8.8 TH/MM3 (4.0-11.0)
[2016-07-03 06:00] LABS: BICARBONATE 29.7 MEQ/L (21.0-32.0); INDIRECT BILIRUBIN 0.2 MG/DL (0.0-0.8); TOTAL BILIRUBIN ADULT 0.3 MG/DL (0.2-1.0)
[2016-07-03] MEDS: BUDESONIDE-FORMOTEROL 160/4.5 MCG INHALER INH SCH ×2 (08:25→20:39)
[2016-07-03] MEDS: BISACODYL 10 MG SUPP RECTAL SCH (08:32)
[2016-07-03] MEDS: DICLOFENAC SODIUM 75 MG DELAYED RELEASE TAB PO SCH ×2 (08:33→20:37)
[2016-07-03] MEDS: METHADONE HCL 10 MG TAB PO SCH ×2 (08:33→16:17)
[2016-07-03] MEDS: PANTOPRAZOLE SOD 40 MG DELAYED RELEASE TAB PO SCH (08:33)
[2016-07-03] MEDS: LACTATED RINGER'S 1000 ML INJ 1,000 ML IV SCH ×3 (08:33→16:17)
[2016-07-03] MEDS: SODIUM CHLORIDE 0.9% FLUSH 10 ML FLUSH IV FLUSH SCH ×2 (08:33→19:14)
[2016-07-03] MEDS: metroNIDAZOLE 500 MG TAB PO SCH ×2 (08:33→16:20)
--- NOTE | 2016-07-03 14:30 | HHI.PR ---
Subjective Subjective Notes The patient has no complaints today. She's had less output from the fistula since she cleared the Gastrografin. She still has had no flatus or bowel movements. She has no abdominal pain and has continued to tolerate her diet. Objective Vitals/I&O Vital Signs Date Time Temp Pulse Resp B/P Pulse Ox O2 Delivery O2 Flow Rate FiO2 07/03/16 12:00 98.7 97 19 96/53 94 Labs Laboratory Tests Test 07/03/16 04:22 White Blood Count 8.8 Red Blood Count 3.73 Hemoglobin 9.9 Hematocrit 30.9 Mean Corpuscular Volume 82.8 Mean Corpuscular Hemoglobin 26.6 Mean Corpuscular Hemoglobin 32.2 Concent Red Cell Distribution Width 15.4 Platelet Count 514 Mean Platelet Volume 7.3 Neutrophils (%) (Auto) 50.2 Lymphocytes (%) (Auto) 33.9 Monocytes (%) (Auto) 10.2 Eosinophils (%) (Auto) 2.6 Basophils (%) (Auto) 3.1 Neutrophils # (Auto) 4.4 Lymphocytes # (Auto) 3.0 Monocytes # (Auto) 0.9 Eosinophils # (Auto) 0.2 Basophils # (Auto) 0.3 CBC Comment DIFF FINAL Differential Comment Sodium Level 136 Potassium Level 4.0 Chloride Level 99 Carbon Dioxide Level 29.7 Anion Gap 7 Blood Urea Nitrogen 18 Creatinine 1.25 Estimat Glomerular Filtration 45 Rate Random Glucose 91 Calcium Level 8.9 Total Bilirubin 0.3 Direct Bilirubin 0.1 Indirect Bilirubin 0.2 Aspartate Amino Transf 14 (AST/SGOT) Alanine Aminotransferase 8 (ALT/SGPT) Alkaline Phosphatase 95 Total Protein 7.2 Albumin 2.4 Radiology Vital Signs Date Time Temp Pulse Resp B/P Pulse Ox O2 Delivery O2 Flow Rate FiO2 06/20/16 16:00 102 06/20/16 16:00 98.0 102 17 143/67 92 06/20/16 14:00 100 06/20/16 12:00 98.4 102 23 113/72 97 06/20/16 12:00 95 06/20/16 10:00 98 06/20/16 08:00 98.2 101 14 101/67 98 06/20/16 08:00 101 06/20/16 06:00 106 06/20/16 04:00 100.2 115 25 111/77 95 06/20/16 04:00 115 06/20/16 02:00 118 06/20/16 00:57 22 06/20/16 00:00 114 06/20/16 00:00 99.2 114 19 100/64 95 06/19/16 22:00 98.2 107 25 114/58 96 06/19/16 22:00 109 06/19/16 20:00 98.2 106 25 114/58 96 06/19/16 20:00 108 Last 24 hours Impressions Upper GI and Small Bowel X-Ray 07/02/16 0800 Signed Impressions: Service Date/Time: Saturday, July 02, 2016 08:31 - CONCLUSION: No bowel obstruction. Contrast proceeding into the fistula on later images Dhiraj Reza MD Cardiovascular: Regular Lungs: Clear Abdomen: Non-distended, Non-tender, BS normal Extremities: No edema Narrative Exam The wound is elongated somewhat as 1 or 2 mami more came out on the round. Her skin had been somewhat excoriated but she now has an appliance in place which protects the skin. The output has diminished somewhat since yesterday. A/P Assessment and Plan Impression: Status post ileostomy closure with enterocutaneous fistula. She is stable for now and tolerating a diet. Despite the Dulcolax suppository earlier, there is been no output from below. Follow-up abdominal films were unrevealing of anything of significance Particularly there was unrevealing as to whether there was any passage of contrast into the distal small bowel and colon. Laboratory work was essentially normal except for the fact that she is become somewhat dehydrated. Plan: She is being bolused with 1 L of lactated Ringer's. Repeat BMP will be obtained in the morning. She will receive another Dulcolax suppository in the morning. Magdaleno Philip MD July 03, 2016 14:30
[2016-07-03] MEDS: QUEtiapine FUMARATE 25 MG TAB PO SCH (20:37)
[2016-07-03] MEDS: CYCLOBENZAPRINE HCL 10 MG TAB PO SCH (20:37)
[2016-07-03] MEDS: busPIRone HCL 5 MG TAB PO SCH (20:38)
[2016-07-03] MEDS: LORazepam 0.5 MG TAB PO PRN (22:35)
[2016-07-04] MEDS: metroNIDAZOLE 500 MG TAB PO SCH ×4 (00:08→23:07)
[2016-07-04] MEDS: METHADONE HCL 10 MG TAB PO SCH ×4 (00:08→23:07)
[2016-07-04 04:00] VITALS: BP 106/51; PULSE 78; RESP 18; TEMP 97.1; O2SAT 94
[2016-07-04 04:52] LABS: BICARBONATE 30.8 MEQ/L (21.0-32.0)
[2016-07-04 08:00] VITALS: BP 86/50; PULSE 86; RESP 17; TEMP 96.4; O2SAT 96
[2016-07-04] MEDS: SODIUM CHLORIDE 0.9% FLUSH 10 ML FLUSH IV FLUSH SCH (08:16)
[2016-07-04] MEDS: BISACODYL 10 MG SUPP RECTAL SCH (08:16)
[2016-07-04] MEDS: DICLOFENAC SODIUM 75 MG DELAYED RELEASE TAB PO SCH ×2 (08:16→21:02)
[2016-07-04] MEDS: PANTOPRAZOLE SOD 40 MG DELAYED RELEASE TAB PO SCH (08:16)
[2016-07-04] MEDS: BUDESONIDE-FORMOTEROL 160/4.5 MCG INHALER INH SCH ×2 (08:18→21:00)
[2016-07-04] MEDS ORDERED: LEVOFLOXACIN 750 MG TAB PO SCH (09:00)
[2016-07-04 12:00] VITALS: BP 98/51; PULSE 114; RESP 19; TEMP 98.6; O2SAT 95
[2016-07-04 16:00] VITALS: BP 97/52; PULSE 101; RESP 19; TEMP 98.1; O2SAT 97
--- NOTE | 2016-07-04 16:53 | HHI.PR ---
Subjective Subjective Notes Overall the patient feels about the same. She's had several small bowel movements per rectum. She has passed little, if any flatus. The fistula output has continued to diminish according to the patient. Objective Vitals/I&O Vital Signs Date Time Temp Pulse Resp B/P Pulse Ox O2 Delivery O2 Flow Rate FiO2 07/04/16 12:00 98.6 114 19 98/51 95 Labs Laboratory Tests Test 07/04/16 04:09 Sodium Level 139 Potassium Level 4.0 Chloride Level 103 Carbon Dioxide Level 30.8 Anion Gap 5 Blood Urea Nitrogen 14 Creatinine 0.88 Estimat Glomerular Filtration 68 Rate Random Glucose 85 Calcium Level 9.0 Radiology Vital Signs Date Time Temp Pulse Resp B/P Pulse Ox O2 Delivery O2 Flow Rate FiO2 06/20/16 16:00 102 06/20/16 16:00 98.0 102 17 143/67 92 06/20/16 14:00 100 06/20/16 12:00 98.4 102 23 113/72 97 06/20/16 12:00 95 06/20/16 10:00 98 06/20/16 08:00 98.2 101 14 101/67 98 06/20/16 08:00 101 06/20/16 06:00 106 06/20/16 04:00 100.2 115 25 111/77 95 06/20/16 04:00 115 06/20/16 02:00 118 06/20/16 00:57 22 06/20/16 00:00 114 06/20/16 00:00 99.2 114 19 100/64 95 06/19/16 22:00 98.2 107 25 114/58 96 06/19/16 22:00 109 06/19/16 20:00 98.2 106 25 114/58 96 06/19/16 20:00 108 Last 24 hours Impressions Upper GI and Small Bowel X-Ray 07/02/16 0800 Signed Impressions: Service Date/Time: Saturday, July 02, 2016 08:31 - CONCLUSION: No bowel obstruction. Contrast proceeding into the fistula on later images Dhiraj Reza MD Cardiovascular: Regular Lungs: Clear Abdomen: Non-distended, Non-tender, BS normal Extremities: No edema A/P Assessment and Plan Impression: Status post ileostomy closure with enterocutaneous fistula. She is stable for now and tolerating a diet. She has had a small amount of stool output per rectum at this point. Overall she remains very stable. Plan: Her renal numbers are much better than yesterday. I've encouraged to continue to drink fluids. We will continue the daily suppository for now, although she may well require enemas to further clear the colon. Magdaleno Philip MD July 04, 2016 16:53
[2016-07-04 20:00] VITALS: BP 113/63; PULSE 105; RESP 18; TEMP 98.7; O2SAT 97
[2016-07-04] MEDS: QUEtiapine FUMARATE 25 MG TAB PO SCH (21:02)
[2016-07-04] MEDS: busPIRone HCL 5 MG TAB PO SCH (21:02)
[2016-07-04] MEDS: CYCLOBENZAPRINE HCL 10 MG TAB PO SCH (21:02)
[2016-07-04] MEDS: LORazepam 0.5 MG TAB PO PRN (23:11)
[2016-07-05] VITALS: BP 122/60; PULSE 111; RESP 18; TEMP 98.4; O2SAT 96
[2016-07-05 04:00] VITALS: BP 114/56; PULSE 96; RESP 18; TEMP 98; O2SAT 95
[2016-07-05 08:00] VITALS: BP 101/52; PULSE 94; RESP 16; TEMP 97.1; O2SAT 95
[2016-07-05] MEDS: BUDESONIDE-FORMOTEROL 160/4.5 MCG INHALER INH SCH ×2 (09:00→20:43)
[2016-07-05] MEDS: DICLOFENAC SODIUM 75 MG DELAYED RELEASE TAB PO SCH ×2 (09:06→20:43)
[2016-07-05] MEDS: PANTOPRAZOLE SOD 40 MG DELAYED RELEASE TAB PO SCH (09:06)
[2016-07-05] MEDS: metroNIDAZOLE 500 MG TAB PO SCH ×3 (09:06→23:27)
[2016-07-05] MEDS: LEVOFLOXACIN 750 MG TAB PO SCH (09:06)
[2016-07-05] MEDS: METHADONE HCL 10 MG TAB PO SCH ×3 (09:06→23:28)
[2016-07-05] MEDS: BISACODYL 10 MG SUPP RECTAL SCH (09:07)
[2016-07-05 12:00] VITALS: BP 105/62; PULSE 102; RESP 16; TEMP 97.7; O2SAT 99
[2016-07-05 16:00] VITALS: BP 116/62; PULSE 105; RESP 16; TEMP 97.8; O2SAT 98
--- NOTE | 2016-07-05 16:59 | HHI.PR ---
Subjective Subjective Notes The patient states that she does not feel as well today as she did yesterday. She had a couple small bowel movements earlier. The ileostomy output has been somewhat less as well. She is still tolerating her diet without nausea or vomiting, although she feels occasional lower abdominal pressure when she takes a larger meal. She has no other complaints. Objective Vitals/I&O Vital Signs Date Time Temp Pulse Resp B/P Pulse Ox O2 Delivery O2 Flow Rate FiO2 07/05/16 16:00 97.8 105 16 116/62 98 Radiology Vital Signs Date Time Temp Pulse Resp B/P Pulse Ox O2 Delivery O2 Flow Rate FiO2 06/20/16 16:00 102 06/20/16 16:00 98.0 102 17 143/67 92 06/20/16 14:00 100 06/20/16 12:00 98.4 102 23 113/72 97 06/20/16 12:00 95 06/20/16 10:00 98 06/20/16 08:00 98.2 101 14 101/67 98 06/20/16 08:00 101 06/20/16 06:00 106 06/20/16 04:00 100.2 115 25 111/77 95 06/20/16 04:00 115 06/20/16 02:00 118 06/20/16 00:57 22 06/20/16 00:00 114 06/20/16 00:00 99.2 114 19 100/64 95 06/19/16 22:00 98.2 107 25 114/58 96 06/19/16 22:00 109 06/19/16 20:00 98.2 106 25 114/58 96 06/19/16 20:00 108 Last 24 hours Impressions Upper GI and Small Bowel X-Ray 07/02/16 0800 Signed Impressions: Service Date/Time: Saturday, July 02, 2016 08:31 - CONCLUSION: No bowel obstruction. Contrast proceeding into the fistula on later images Dhiraj Reza MD Cardiovascular: Regular Lungs: Clear Abdomen: Non-distended, Non-tender, BS normal Extremities: No edema A/P Assessment and Plan Impression: Status post ileostomy closure with enterocutaneous fistula. She is stable for now and tolerating a diet. She continues to have small amounts of stool per rectum. Plan: Repeat lab's will be obtained for the morning. I'll also plan to give her enemas for the morning as well. Magdaleno Philip MD July 05, 2016 16:59
[2016-07-05] MEDS ORDERED: MINERAL OIL ENEMA 118 ML BTL RECTAL ONE (17:00)
[2016-07-05 20:00] VITALS: BP 106/55; PULSE 104; PULSE 105; RESP 17; TEMP 98.8; O2SAT 98
[2016-07-05] MEDS: SODIUM CHLORIDE 0.9% FLUSH 10 ML FLUSH IV FLUSH SCH ×2 (20:43→21:00)
[2016-07-05] MEDS: CYCLOBENZAPRINE HCL 10 MG TAB PO SCH (20:43)
[2016-07-05] MEDS: QUEtiapine FUMARATE 25 MG TAB PO SCH (20:43)
[2016-07-05] MEDS: busPIRone HCL 5 MG TAB PO SCH (20:43)
[2016-07-05] MEDS: LORazepam 0.5 MG TAB PO PRN (23:27)
[2016-07-06] VITALS: BP 113/63; PULSE 94; RESP 17; TEMP 97.8; O2SAT 98
[2016-07-06 04:00] VITALS: BP 106/61; PULSE 84; RESP 17; TEMP 97.1; O2SAT 98
[2016-07-06 06:23] LABS: AUTOMATED NEUTROPHIL # 2.7 TH/MM3 (1.8-7.7); BASOPHIL # 0.1 TH/MM3 (0-0.2); BASOPHIL % 1.4 % (0.0-2.0); EOSINOPHIL # 0.5 TH/MM3 (0-0.4); EOSINOPHIL % 6.7 % (0.0-4.0); HEMATOCRIT 27.4 % (35.0-46.0); HEMO FLAGS DIFF FINAL; LYMPH % 39.4 % (9.0-44.0); LYMPHOCYTE # 2.7 TH/MM3 (1.0-4.8); MEAN CELL VOLUME 81.9 FL (80.0-100.0); MEAN CORPUSCULAR HEMOGLOBIN 27.5 PG (27.0-34.0); MEAN CORPUSCULAR HGB CONC 33.5 % (32.0-36.0); MONO % 12.4 % (0.0-8.0); NEUT % 40.1 % (16.0-70.0); PLATELET COUNT 414 TH/MM3 (150-450); RED BLOOD COUNT 3.34 MIL/MM3 (4.00-5.30); RED CELL DISTRIBUTION WIDTH 15.1 % (11.6-17.2); WHITE BLOOD COUNT 6.8 TH/MM3 (4.0-11.0)
[2016-07-06 06:50] LABS: BICARBONATE 30.7 MEQ/L (21.0-32.0); INDIRECT BILIRUBIN 0.1 MG/DL (0.0-0.8); POTASSIUM 3.8 MEQ/L (3.5-5.1); TOTAL BILIRUBIN ADULT 0.2 MG/DL (0.2-1.0)
[2016-07-06] MEDS: METHADONE HCL 10 MG TAB PO SCH ×3 (08:57→22:58)
[2016-07-06] MEDS: metroNIDAZOLE 500 MG TAB PO SCH ×3 (08:58→22:58)
[2016-07-06] MEDS: PANTOPRAZOLE SOD 40 MG DELAYED RELEASE TAB PO SCH (08:58)
[2016-07-06] MEDS: DICLOFENAC SODIUM 75 MG DELAYED RELEASE TAB PO SCH ×2 (08:58→21:07)
[2016-07-06] MEDS: LEVOFLOXACIN 750 MG TAB PO SCH (08:58)
[2016-07-06] MEDS: SODIUM CHLORIDE 0.9% FLUSH 10 ML FLUSH IV FLUSH SCH ×2 (08:59→21:00)
[2016-07-06] MEDS: BUDESONIDE-FORMOTEROL 160/4.5 MCG INHALER INH SCH ×2 (09:00→21:05)
[2016-07-06 12:00] VITALS: BP 123/77; PULSE 103; RESP 18; TEMP 97.9
[2016-07-06 16:00] VITALS: BP 106/57; PULSE 84; RESP 16; TEMP 98.3; O2SAT 99
--- NOTE | 2016-07-06 17:31 | HHI.PR ---
Subjective Subjective Notes No complaints. She has had no pain. She is passing flatus or bowel movements. She in particular had no bowel movements after or retention enema 2. Objective Vitals/I&O Vital Signs Date Time Temp Pulse Resp B/P Pulse Ox O2 Delivery O2 Flow Rate FiO2 07/06/16 16:00 98.3 84 16 106/57 99 Labs Laboratory Tests Test 07/06/16 05:45 White Blood Count 6.8 Red Blood Count 3.34 Hemoglobin 9.2 Hematocrit 27.4 Mean Corpuscular Volume 81.9 Mean Corpuscular Hemoglobin 27.5 Mean Corpuscular Hemoglobin 33.5 Concent Red Cell Distribution Width 15.1 Platelet Count 414 Mean Platelet Volume 7.3 Neutrophils (%) (Auto) 40.1 Lymphocytes (%) (Auto) 39.4 Monocytes (%) (Auto) 12.4 Eosinophils (%) (Auto) 6.7 Basophils (%) (Auto) 1.4 Neutrophils # (Auto) 2.7 Lymphocytes # (Auto) 2.7 Monocytes # (Auto) 0.8 Eosinophils # (Auto) 0.5 Basophils # (Auto) 0.1 CBC Comment DIFF FINAL Differential Comment Sodium Level 139 Potassium Level 3.8 Chloride Level 102 Carbon Dioxide Level 30.7 Anion Gap 6 Blood Urea Nitrogen 8 Creatinine 0.94 Estimat Glomerular Filtration 63 Rate Random Glucose 83 Calcium Level 8.7 Total Bilirubin 0.2 Direct Bilirubin 0.1 Indirect Bilirubin 0.1 Aspartate Amino Transf 10 (AST/SGOT) Alanine Aminotransferase 7 (ALT/SGPT) Alkaline Phosphatase 83 Total Protein 6.3 Albumin 2.2 Radiology Vital Signs Date Time Temp Pulse Resp B/P Pulse Ox O2 Delivery O2 Flow Rate FiO2 06/20/16 16:00 102 06/20/16 16:00 98.0 102 17 143/67 92 06/20/16 14:00 100 06/20/16 12:00 98.4 102 23 113/72 97 06/20/16 12:00 95 06/20/16 10:00 98 06/20/16 08:00 98.2 101 14 101/67 98 06/20/16 08:00 101 06/20/16 06:00 106 06/20/16 04:00 100.2 115 25 111/77 95 06/20/16 04:00 115 06/20/16 02:00 118 06/20/16 00:57 22 06/20/16 00:00 114 06/20/16 00:00 99.2 114 19 100/64 95 06/19/16 22:00 98.2 107 25 114/58 96 06/19/16 22:00 109 06/19/16 20:00 98.2 106 25 114/58 96 06/19/16 20:00 108 Last 24 hours Impressions Upper GI and Small Bowel X-Ray 07/02/16 0800 Signed Impressions: Service Date/Time: Saturday, July 02, 2016 08:31 - CONCLUSION: No bowel obstruction. Contrast proceeding into the fistula on later images Dhiraj Reza MD Cardiovascular: Regular Lungs: Clear Abdomen: Non-distended, Non-tender, BS normal Extremities: No edema A/P Assessment and Plan Impression: Status post ileostomy closure with enterocutaneous fistula. She is stable for now and tolerating a diet. Protein remains low. Plan: Gastrografin enema has been ordered for the morning. I will reinstitute IV fluids for now in view of her ongoing mild dehydration. Magdaleno Philip MD July 06, 2016 17:31
[2016-07-06] MEDS: D5-1/2 NS + KCL 20 MEQ INJ 1,000 ML IV SCH (18:05)
[2016-07-06 20:00] VITALS: BP 134/59; PULSE 85; RESP 17; TEMP 96; O2SAT 98
[2016-07-06] MEDS: busPIRone HCL 5 MG TAB PO SCH (21:06)
[2016-07-06] MEDS: CYCLOBENZAPRINE HCL 10 MG TAB PO SCH (21:06)
[2016-07-06] MEDS: QUEtiapine FUMARATE 25 MG TAB PO SCH (21:06)
[2016-07-06] MEDS: LORazepam 0.5 MG TAB PO PRN (22:58)
[2016-07-07] VITALS (7 sets, daily range): BP systolic 94–119; BP diastolic 52–68; PULSE 83–116; RESP 17–20; TEMP 97.1–99.7; O2SAT 95–100
[2016-07-07] MEDS: D5-1/2 NS + KCL 20 MEQ INJ 1,000 ML IV SCH ×2 (04:13→12:58)
[2016-07-07] MEDS: metroNIDAZOLE 500 MG TAB PO SCH ×2 (07:55→16:04)
[2016-07-07] MEDS: LEVOFLOXACIN 750 MG TAB PO SCH (07:55)
[2016-07-07] MEDS: PANTOPRAZOLE SOD 40 MG DELAYED RELEASE TAB PO SCH (07:56)
[2016-07-07] MEDS: METHADONE HCL 10 MG TAB PO SCH ×2 (07:56→16:04)
[2016-07-07] MEDS: DICLOFENAC SODIUM 75 MG DELAYED RELEASE TAB PO SCH ×2 (07:56→19:51)
[2016-07-07] MEDS: BUDESONIDE-FORMOTEROL 160/4.5 MCG INHALER INH SCH ×2 (07:57→19:50)
[2016-07-07] MEDS: SODIUM CHLORIDE 0.9% FLUSH 10 ML FLUSH IV FLUSH SCH ×2 (07:58→19:50)
[2016-07-07] MEDS ORDERED: DIATRIZOATE MEGLUM/DIATRIZOATE SOD 120 ML BTL (for RAD DIAG) RECTAL ONE (10:41)
--- NOTE | 2016-07-07 11:11 | RADRPT ---
EXAM DATE/TIME: 07/07/2016 10:08 [facility] COMPARISON: CT ABDOMEN & PELVIS W/O CONTRAST, June 17, 2016, 13:15. GASTROGRAFIN ENEMA, May 26, 2016, 11:04. INDICATIONS : Fistula FLUORO TIME: 1.3 minutes IMAGE COUNT: 15 CONTRAST: 1. [facility] MEDICAL HISTORY : SURGICAL HISTORY : Stoma 03/2015-05/2016, hx of abd hernia, reversed stoma and got a fistula 05/2016 ENCOUNTER: Initial ACUITY: 4 - 6 days PAIN SCORE: 0/10 LOCATION: Bilateral abdomen FINDINGS/ CONCLUSION: Preliminary film is unremarkable. Fluoroscopic guidance a Gastrografin enema was performed. The tip is inserted and the pateint's recta l vault is somewhat narrowed. There is filing of the entire desending colon with normal caliber. A few diverticula. Then in the left upper quadrant there is a longer segment of quite decompressed bow el which has more the appearance of small bowel. Then in the mid abdomen there is some inhomogeneity , could be the source of the leak. Eventually there is contrast extending into the anterior abdomina l wall. A non-contrast CT scan is recommended and will be performed to better evaluate the source of the fistula. It could not be identified on plain films. Garrett Cain MD on July 07, 2016 at 10:56 Board Certified Radiologist. This report was verified electronically.
--- NOTE | 2016-07-07 11:51 | RADRPT ---
EXAM DATE/TIME: 07/07/2016 10:46 [facility] COMPARISON: No previous studies available for comparison. INDICATIONS : Abdominal pain ORAL CONTRAST: No oral contrast ingested. RADIATION DOSE: 15.04 CTDIvol (mGy) MEDICAL HISTORY : None SURGICAL HISTORY : Stoma, abdominal hernia ENCOUNTER: Initial ACUITY: 4 - 6 days PAIN SCALE: 0/10 LOCATION: Abdomen TECHNIQUE: Volumetric scanning of the abdomen was performed. Using automated exposure control and adjustment of the mA and/or kV according to patient size, radiation dose was kept as low as reasonably achievable to obtain optimal diagnostic quality images. FINDINGS: CT scan of the abdomen is performed without contrast. The distal colon including the sigmoid colon i s unremarkable until it decompresses into a area of colon in the left mid abdomen which measures up to 6 cm across. That is just at the level of the small bowel to colonic anastomosis. That anastomosis ident ified without any evidence of extravasation or leak. Then the small bowel extends across to the right of midline a nd then eventually inferiorly reaching the upper pelvis. Then it extends more cephalad where there is a 6 mm defect in the wall along the lateral anterior aspect of the small bowel. The contrast decompresses into a cont rast filled fistula measuring 4.7 x 2.8 cm which is posterior to the rectus muscle. There then is a small defect in the rectus muscle and the contrast decompresses into the subcutaneous fat. Within the subcutaneous fat there is a contrast filled collection measuring 3.8 x 1.9 cm across. It decompresses on to the skin. CONCLUSION: There is a clear anastomotic leak in the right mid abdomen between two loops of small bowel with a 6 mm defect. Collections of contrast both above and superficial and deep to the rectus muscle with a s mall defect in the muscle itself. The findings were relayed to Dr. Magdaleno Philip shortly after complet ion of the study. Garrett Cain MD on July 07, 2016 at 11:27 Board Certified Radiologist. This report was verified electronically.
--- NOTE | 2016-07-07 13:33 | HHI.PR ---
Subjective Subjective Notes She has no complaints today. She is tolerating her diet without major problem. She tolerated the Gastrografin enema with minimal problem. Objective Vitals/I&O Vital Signs Date Time Temp Pulse Resp B/P Pulse Ox O2 Delivery O2 Flow Rate FiO2 07/07/16 12:00 98.5 97 20 109/56 97 Radiology Last 24 hours Impressions Enema w/Water Soluble 07/07/16 0000 Signed Impressions: Service Date/Time: June 10:08 - CONCLUSION: Preliminary film is unremarkable. Fluoroscopic guidance a Gastrografin enema was performed. The tip is inserted and the pateint's rectal vault is somewhat narrowed. There is filing of the entire desending colon with normal caliber. A few diverticula. Then in the left upper quadrant there is a longer segment of quite decompressed bowel which has more the appearance of small bowel. Then in the mid abdomen there is some inhomogeneity, could be the source of the leak. Eventually there is contrast extending into the anterior abdominal wall. A non-contrast CT scan is recommended and will be performed to better evaluate the source of the fistula. It could not be identified on plain films. Garrett Cain MD Vital Signs Date Time Temp Pulse Resp B/P Pulse Ox O2 Delivery O2 Flow Rate FiO2 06/20/16 16:00 102 06/20/16 16:00 98.0 102 17 143/67 92 06/20/16 14:00 100 06/20/16 12:00 98.4 102 23 113/72 97 06/20/16 12:00 95 06/20/16 10:00 98 06/20/16 08:00 98.2 101 14 101/67 98 06/20/16 08:00 101 06/20/16 06:00 106 06/20/16 04:00 100.2 115 25 111/77 95 06/20/16 04:00 115 06/20/16 02:00 118 06/20/16 00:57 22 06/20/16 00:00 114 06/20/16 00:00 99.2 114 19 100/64 95 06/19/16 22:00 98.2 107 25 114/58 96 06/19/16 22:00 109 06/19/16 20:00 98.2 106 25 114/58 96 06/19/16 20:00 108 Last 24 hours Impressions Upper GI and Small Bowel X-Ray 07/02/16 0800 Signed Impressions: Service Date/Time: Saturday, July 02, 2016 08:31 - CONCLUSION: No bowel obstruction. Contrast proceeding into the fistula on later images Dhiraj Reza MD Cardiovascular: Regular Lungs: Clear Abdomen: Non-distended, Non-tender, BS normal Extremities: No edema A/P Assessment and Plan Impression: Status post ileostomy closure with enterocutaneous fistula. She is stable for now and tolerating a diet. Protein remains low. Gastrografin enema shows a 6 mm fistula in the right lower quadrant as expected. There is no distal obstruction noted. There is minimal fluid collection below the peritoneal surface as seen on follow-up CT scan. Plan: Patient will likely be discharged tomorrow. Magdaleno Philip MD July 07, 2016 13:33
[2016-07-07] MEDS: busPIRone HCL 5 MG TAB PO SCH (19:51)
[2016-07-07] MEDS: QUEtiapine FUMARATE 25 MG TAB PO SCH (19:51)
[2016-07-07] MEDS: CYCLOBENZAPRINE HCL 10 MG TAB PO SCH (19:51)
[2016-07-07] MEDS: LORazepam 0.5 MG TAB PO PRN (22:50)
[2016-07-08] MEDS: metroNIDAZOLE 500 MG TAB PO SCH ×2 (00:54→08:04)
[2016-07-08] MEDS: METHADONE HCL 10 MG TAB PO SCH ×2 (00:54→08:05)
[2016-07-08] MEDS: D5-1/2 NS + KCL 20 MEQ INJ 1,000 ML IV SCH ×2 (00:55→08:06)
[2016-07-08 06:11] LABS: AUTOMATED NEUTROPHIL # 4.6 TH/MM3 (1.8-7.7); BASOPHIL # 0.1 TH/MM3 (0-0.2); EOSINOPHIL # 0.3 TH/MM3 (0-0.4); EOSINOPHIL % 3.6 % (0.0-4.0); HEMO FLAGS DIFF FINAL; LYMPH % 28.3 % (9.0-44.0); LYMPHOCYTE # 2.4 TH/MM3 (1.0-4.8); MEAN CELL VOLUME 82.4 FL (80.0-100.0); MEAN CORPUSCULAR HGB CONC 32.7 % (32.0-36.0); MONO % 13.2 % (0.0-8.0); NEUT % 53.9 % (16.0-70.0); PLATELET COUNT 365 TH/MM3 (150-450); RED BLOOD COUNT 3.28 MIL/MM3 (4.00-5.30); RED CELL DISTRIBUTION WIDTH 15.1 % (11.6-17.2); WHITE BLOOD COUNT 8.5 TH/MM3 (4.0-11.0)
[2016-07-08 06:29] LABS: INDIRECT BILIRUBIN 0.2 MG/DL (0.0-0.8); POTASSIUM 4.2 MEQ/L (3.5-5.1); TOTAL BILIRUBIN ADULT 0.3 MG/DL (0.2-1.0)
[2016-07-08 08:00] VITALS: BP 97/55; PULSE 101; RESP 16; TEMP 97.3; O2SAT 95
[2016-07-08] MEDS: BUDESONIDE-FORMOTEROL 160/4.5 MCG INHALER INH SCH (08:03)
[2016-07-08] MEDS: DICLOFENAC SODIUM 75 MG DELAYED RELEASE TAB PO SCH (08:04)
[2016-07-08] MEDS: PANTOPRAZOLE SOD 40 MG DELAYED RELEASE TAB PO SCH (08:05)
[2016-07-08] MEDS: LEVOFLOXACIN 750 MG TAB PO SCH (08:05)
[2016-07-08] MEDS: SODIUM CHLORIDE 0.9% FLUSH 10 ML FLUSH IV FLUSH SCH (08:06)
--- NOTE | 2016-07-08 09:30 | HHI.DS ---
Discharge Summary Admission Date Jun 17, 2016 at 14:26 Discharge Date: July 08, 2016 Admitting Diagnosis ileus versus obstruction Procedures No procedures were performed. Brief History Patient is a 50-year-old woman who underwent closure of an ileostomy in the week prior to admission. She done well initially for the first 6 or 7 days, but developed abdominal pain and symptoms of a small bowel insertion. She was seen in the emergency room and admitted to the hospital for further evaluation. She was then found to have developed as an enterocutaneous fistula. CBC/BMP: 07/08/16 0454 07/08/16 0454 Significant Findings Laboratory Tests Test 07/06/16 07/08/16 05:45 04:54 Red Blood Count 3.34 MIL/MM3 3.28 MIL/MM3 (4.00-5.30) (4.00-5.30) Hemoglobin 9.2 GM/DL 8.8 GM/DL (11.6-15.3) (11.6-15.3) Hematocrit 27.4 % 27.0 % (35.0-46.0) (35.0-46.0) Monocytes (%) (Auto) 12.4 % 13.2 % (0.0-8.0) (0.0-8.0) Eosinophils (%) (Auto) 6.7 % (0.0-4.0) Eosinophils # (Auto) 0.5 TH/MM3 (0-0.4) Estimat Glomerular Filtration 63 ML/MIN (>89) 71 ML/MIN (>89) Rate Aspartate Amino Transf 10 U/L (15-37) 9 U/L (15-37) (AST/SGOT) Alanine Aminotransferase 7 U/L (10-53) 7 U/L (10-53) (ALT/SGPT) Total Protein 6.3 GM/DL 5.9 GM/DL (6.4-8.2) (6.4-8.2) Albumin 2.2 GM/DL 2.0 GM/DL (3.4-5.0) (3.4-5.0) Monocytes # (Auto) 1.1 TH/MM3 (0-0.9) Blood Urea Nitrogen 5 MG/DL (7-18) Imaging Last 72 hours Impressions Enema w/Water Soluble 07/07/16 0000 Signed Impressions: Service Date/Time: June 10:08 - CONCLUSION: Preliminary film is unremarkable. Fluoroscopic guidance a Gastrografin enema was performed. The tip is inserted and the pateint's rectal vault is somewhat narrowed. There is filing of the entire desending colon with normal caliber. A few diverticula. Then in the left upper quadrant there is a longer segment of quite decompressed bowel which has more the appearance of small bowel. Then in the mid abdomen there is some inhomogeneity, could be the source of the leak. Eventually there is contrast extending into the anterior abdominal wall. A non-contrast CT scan is recommended and will be performed to better evaluate the source of the fistula. It could not be identified on plain films. Garrett Cain MD Abdomen CT 07/07/16 0000 Signed Impressions: Service Date/Time: June 10:46 - CONCLUSION: There is a clear anastomotic leak in the right mid abdomen between two loops of small bowel with a 6 mm defect. Collections of contrast both above and superficial and deep to the rectus muscle with a small defect in the muscle itself. The findings were relayed to Dr. Magdaleno Philip shortly after completion of the study. Garrett Cain MD PE at Discharge LUNGS: Clear to percussion and auscultation HEART: Regular rate and rhythm ABDOMEN: Completely benign with no tenderness, guarding, or rebound. There is a well contained enterocutaneous fistula in the right lower quadrant with no surrounding erythema. Hospital Course The patient was initially admitted and within 36 hours developed leakage from the incision site in the right lower quadrant consistent with an enterocutaneous fistula. She was placed on antibiotics and ultimately was able to tolerate a regular diet. Over the last 2 weeks the fistula has been identified as being at the anastomotic site. She has no obstruction to the fistula as seen on Gastrografin upper GI small bowel follow-through. She also underwent Gastrografin enema which showed no obstruction distal to the fistula which was seen to be 6 mm in diameter. Overall her nutrition is been less than optimal with her last albumin being 2.0. She is, however tolerating a regular diet and taking protein supplements. She has had several bowel movements since the Gastrografin enema. She has had no fevers, abdominal pain, and her WBC has remained normal Pt Condition on Discharge: Fair Discharge Disposition: Discharge Home Discharge Instructions DIET: Follow Instructions for: As Tolerated, No Restrictions Activities you can perform: Regular-No Restrictions Other Activity Instructions: OK to shower Additional Information I have asked the patient to call the office should she have any increasing abdominal pain, nausea, vomiting, or fever. I will see her back in the office within the next 10-14 days. She is to continue all her home antibiotics. I told her it is okay for her to shower. Magdaleno Philip MD July 08, 2016 09:30
== END 2016-07-08 11:24 | disposition home or self-care (01) | DRG 871 ==
LOC: NEPE 09:58 → NEDA 14:26 → N07A 17:47 → N03A 06-18 15:05 → N07A 06-21 16:55
PROVIDERS: ADMIT Surgery; ATTEND Surgery
PROC: 02HV33Z Insertion of Infusion Device into Superior Vena Cava, Percutaneous Approach (ICD-10-PCS; principal; 2016-06-17)
DX: A41.9 Sepsis, unspecified organism (principal); R65.21 Severe sepsis with septic shock; K63.2 Fistula of intestine; N17.9 Acute kidney failure, unspecified; E46 Unspecified protein-calorie malnutrition; E87.1 Hypo-osmolality and hyponatremia; K56.7 Ileus, unspecified; J44.9 Chronic obstructive pulmonary disease, unspecified; E86.0 Dehydration; E87.6 Hypokalemia; E16.2 Hypoglycemia, unspecified; G89.29 Other chronic pain; I10 Essential (primary) hypertension; K80.20 Calculus of gallbladder without cholecystitis without obstruction; Z79.891 Long term (current) use of opiate analgesic; Z93.3 Colostomy status; F41.9 Anxiety disorder, unspecified
CPT/HCPCS: 36556; 71010; 74020; 74150; 74176; 74245; 74270; 76937; 80048; 80053; 80076; 81001; 82948; 83605; 83690; 83735; 84100; 85007; 85025; 85027; 87040; 94150; 96361; 96374; C9113; J0131; J0692; J1956; J2060; J2405; J3475; J3480; J7030; J7050; J7120; Q9963

== ENCOUNTER 2016-07-16 12:34 | Emergency (ER) | payer MEDICARE, OTHER ==
[~2016-07-16] VITALS: Ht 154.9 cm; Wt 72.0 kg
[~2016-07-16 12:34] MED LIST changes: +KETO10 PO; +VITA10002 PO; -VITA500T49 PO
[2016-07-16 12:40] VITALS: BP 120/76; PULSE 142; RESP 20; TEMP 97.6; O2SAT 97
--- NOTE | 2016-07-16 13:26 | PD ---
HPI Chief Complaint: Abdominal Pain Time Seen by Provider: 12:47 Travel History International Travel<30 days: No Contact w/Intl Traveler<30days: No Traveled to known affect area: No History of Present Illness HPI The patient was seen and examined in the presence of the nurse. This patient complains of abdominal pain. She had abdominal pain and pressure and bloating earlier today. She had an episode of emesis. She also had a bowel movement. Now her abdominal pain is improved. She denies fever. Her drainage bag over her known fistula has been producing some dark greenish liquid material which is typical for her. She arrives with a heart rate of 150. She also had rather diffuse outbreak of red skin coloration one hour ago. She denies any new medications. No hives or shortness of breath. Severity is moderate. No alleviating factors. Duration one day PFSH Past Medical History Arthritis: Yes Asthma: Yes Anxiety: Yes Depression: No Cancer: No Cardiovascular Problems: No High Cholesterol: Yes Congestive Heart Failure: No COPD: Yes Cerebrovascular Accident: No Diabetes: No Diminished Hearing: No Endocrine: No Gastrointestinal Disorders: Yes (ABD HERNIA, ileostomy) Genitourinary: No Hepatitis: No Hiatal Hernia: No Hypertension: Yes (prev hx ) Immune Disorder: No Implanted Vascular Access Dvce: Yes Musculoskeletal: Yes (THORACIC AND LUMBAR DEGEN DISCS, DAMAGED TENDONS, LIG QUINCY ANKLES/knees ) Neurologic: No Psychiatric: Yes (anixety, panic attacks) Reproductive: No Respiratory: Yes (copd) Immunizations Current: Yes Seizures: No Thyroid Disease: No ?: Not Menopausal: Yes Past Surgical History Abdominal Surgery: Yes (PERFORATED BOWEL 10/21/15, COLECTOMY, COLOSTOMY AND REVERSAL, RUPTURED COLON) AICD: No Body Medical Devices: left hip hardware Ear Surgery: No Endocrine Surgery: No Eye Surgery: No Genitourinary Surgery: Yes (ileostomy take down) Gynecologic Surgery: No Joint Replacement: Yes (LEFT TOTAL HIP REPLACEMENT (OSTEOMYELITIS)) Oral Surgery: Yes (tonsillectomy, teeth pulled for dentures) Pacemaker: No Tonsillectomy: Yes Other Surgery: Yes Social History Alcohol Use: No (hx 3-4 BEERS DAILY , hasn't drank in two months) Tobacco Use: No Substance Use: No Allergies-Medications (Allergen,Severity, Reaction): Coded Allergies: No Known Allergies (Unverified , 07/16/16) Reported Meds & Prescriptions Reported Meds & Active Scripts Active Reported Vitamin B-12 (Cyanocobalamin) 1,000 Mcg Tab 3,000 Mcg PO DAILY Metamucil Smooth Texture (Psyllium Hydrophilic Mucilloid) 28.3 % Pow 1 Scoop PO BID PRN 1 rounded TEASPOON in 8 oz of liquid at the first sign of irregularity. Oxycodone (Oxycodone HCl) 10 Mg Tab 10 Mg PO TID Hydrochlorothiazide 25 Mg Tab 25 Mg PO PRN Ventolin Hfa 18 GM Inh (Albuterol Sulfate) 90 Mcg/Act Aer 2 Puff INH Q4-6H PRN Symbicort Inh (Budesonide/Formoterol Fumarate) 160-4.5 Mcg/Act Aero 2 Puff INH Q12HR Buspirone (Buspirone HCl) 5 Mg Tab 5 Mg PO HS Flexeril (Cyclobenzaprine HCl) 10 Mg Tab 10 Mg PO HS Diclofenac Sodium DR (Diclofenac Sodium) 75 Mg Tabdr 75 Mg PO BID Ativan (Lorazepam) 0.5 Mg Tab 0.5 Mg PO HS PRN Methadone (Methadone HCl) 10 Mg Tab 20 Mg PO TID Seroquel (Quetiapine Fumarate) 25 Mg Tab 25-50 Mg PO HS Review of Systems General / Constitutional: No: Fever Eyes: No: Visual changes HENT: No: Headaches Cardiovascular: Positive: Tachycardia, No: Chest Pain or Discomfort Respiratory: No: Shortness of Breath Gastrointestinal: Positive: Nausea, Vomiting, Abdominal Pain Genitourinary: No: Dysuria Musculoskeletal: No: Pain Skin: Positive Rash, Positive Change in Pigmentation Neurologic: No: Weakness Psychiatric: No: Depression Endocrine: No: Polydipsia Hematologic/Lymphatic: No: Easy Bruising Physical Exam Narrative GENERAL: Well-nourished, well-developed patient in no apparent distress. SKIN: Focused skin assessment reveals diffuse macular erythema without nodules. Skin is Warm and dry. HEAD: Atraumatic. Normocephalic. EYES: Pupils equal and round. No scleral icterus. No injection or drainage. ENT: No nasal bleeding or discharge. Mucous membranes pink and moist. NECK: Trachea midline. No JVD. CARDIOVASCULAR: Regular rate and rhythm. No murmur appreciated. RESPIRATORY: No accessory muscle use. Clear to auscultation. Breath sounds equal bilaterally. GASTROINTESTINAL: Abdomen soft, obese, non-tender, nondistended. Hepatic and splenic margins not palpable. Drainage bag in the right side has some dark green liquid MUSCULOSKELETAL: No obvious deformities. No clubbing. No cyanosis. No edema. NEUROLOGICAL: Awake and alert. No obvious cranial nerve deficits. Motor grossly within normal limits. Normal speech. PSYCHIATRIC: Appropriate mood and affect; insight and judgment normal. Data Data Last Documented VS Vital Signs Date Time Temp Pulse Resp B/P Pulse Ox O2 Delivery O2 Flow Rate FiO2 07/16/16 12:40 97.6 142 20 120/76 97 Orders Iv Access Insert/Monitor (07/16/16 13:12) Complete Blood Count With Diff (07/16/16 13:12) Basic Metabolic Panel (Bmp) (07/16/16 13:12) Electrocardiogram (07/16/16 ) Plate And Frame Filter Operator / Telemetry STEVAN.Q8H (07/16/16 13:12) Ct Abd/Pel W Iv Contrast(Rout) (07/16/16 ) Iohexol 350 Inj (Omnipaque 350 Inj) (07/16/16 13:44) Diphenhydramine Inj (Benadryl Inj) (07/16/16 14:00) Methylprednisolone So Succ Inj (Solumedr (07/16/16 14:00) Diphenhydramine Inj (Benadryl Inj) (07/16/16 14:30) Labs Laboratory Tests Test 07/16/16 13:20 White Blood Count 22.1 TH/MM3 Red Blood Count 4.51 MIL/MM3 Hemoglobin 12.0 GM/DL Hematocrit 37.0 % Mean Corpuscular Volume 82.0 FL Mean Corpuscular Hemoglobin 26.7 PG Mean Corpuscular Hemoglobin 32.5 % Concent Red Cell Distribution Width 15.9 % Platelet Count 726 TH/MM3 Mean Platelet Volume 7.2 FL Neutrophils (%) (Auto) 71.9 % Lymphocytes (%) (Auto) 22.7 % Monocytes (%) (Auto) 4.2 % Eosinophils (%) (Auto) 0.8 % Basophils (%) (Auto) 0.4 % Neutrophils # (Auto) 15.9 TH/MM3 Lymphocytes # (Auto) 5.0 TH/MM3 Monocytes # (Auto) 0.9 TH/MM3 Eosinophils # (Auto) 0.2 TH/MM3 Basophils # (Auto) 0.1 TH/MM3 CBC Comment AUTO DIFF Differential Total Cells 100 Counted Neutrophils % (Manual) 66 % Band Neutrophils % 6 % Lymphocytes % 20 % Monocytes % 5 % Eosinophils % 2 % Neutrophils # (Manual) 16.1 TH/MM3 Metamyelocytes 1 % Differential Comment FINAL DIFF MANUAL Platelet Estimate HIGH Platelet Morphology Comment NORMAL Red Cell Morphology Comment NORMAL Sodium Level 136 MEQ/L Potassium Level 3.8 MEQ/L Chloride Level 98 MEQ/L Carbon Dioxide Level 26.9 MEQ/L Anion Gap 11 MEQ/L Blood Urea Nitrogen 10 MG/DL Creatinine 1.05 MG/DL Estimat Glomerular Filtration 55 ML/MIN Rate Random Glucose 207 MG/DL Calcium Level 9.0 MG/DL MDM Medical Decision Making Medical Screen Exam Complete: Yes Emergency Medical Condition: Yes Medical Record Reviewed: Yes Differential Diagnosis Ileus, obstruction, fistula, dehydration Narrative Course I have reviewed the patient's electronic medical record. Reviewed her discharge summary from 8 days ago IV placed I gave her 1 L normal saline IV CBC shows leukocytosis of 22,000 Metabolic profile reasonably normal and not consistent with dehydration Gave her dose of Benadryl and steroid CT of abdomen and pelvis is reviewed in detail with Dr. Adams who knows this patient well. There is some inflammatory changes to the intestines around the ostomy site. No obstruction. On recheck the patient's macular erythema is almost resolved. Much better. She has no abdominal pain or nausea and feels fine and wants to go home. I reviewed with her at length that Dr. Adams suggested she be observed in the hospital to get IV fluid and antibiotics. There is no surgical intervention necessary. The patient process this and thought about it and has decided to decline my recommendation to stay in the hospital. She is going to insist upon discharge. She refuses to stay. She says all her symptoms have resolved and she feels normal now. She will call Dr. rojas Monday for reevaluation. I did write her a week of Augmentin she will not stay and for IV antibiotics or further evaluation or monitoring. I did give her a liter of saline. I advised her to return if she changes her mind or worsens in any way. Initial heart rate was 150 sinus tachycardia. That is steadily decreased toward normal and is now at about 115 sinus tachycardia. Blood pressure remains normal and she is afebrile. Diagnosis Primary Impression: Abdominal pain Qualified Code: R10.84 - Generalized abdominal pain Additional Impressions: Enterocutaneous fistula Sinus tachycardia Leukocytosis Qualified Code: D72.829 - Leukocytosis, unspecified type Additional Instructions: The patient was advised to follow up with their physician and return if they worsen. Med/Other Pt SpecificInfo: Prescription(s) given Scripts Amoxicillin-Clavulanate (Augmentin)875-125 Mg Tab1 Tab PO BID #14 TAB Ref 0 Prov:Uche Zamudio MD 07/16/16 Disposition: DISCHARGE HOME Condition: Stable Uche Zamudio MD July 16, 2016 13:25
[2016-07-16 13:40] LABS: AUTOMATED NEUTROPHIL # 15.9 TH/MM3 (1.8-7.7); BASOPHIL # 0.1 TH/MM3 (0-0.2); BASOPHIL % 0.4 % (0.0-2.0); EOSINOPHIL # 0.2 TH/MM3 (0-0.4); EOSINOPHIL % 0.8 % (0.0-4.0); LYMPH % 22.7 % (9.0-44.0); MEAN CORPUSCULAR HEMOGLOBIN 26.7 PG (27.0-34.0); MEAN CORPUSCULAR HGB CONC 32.5 % (32.0-36.0); MONO % 4.2 % (0.0-8.0); NEUT % 71.9 % (16.0-70.0); PLATELET COUNT 726 TH/MM3 (150-450); RED BLOOD COUNT 4.51 MIL/MM3 (4.00-5.30); RED CELL DISTRIBUTION WIDTH 15.9 % (11.6-17.2); WHITE BLOOD COUNT 22.1 TH/MM3 (4.0-11.0)
[2016-07-16] MEDS ORDERED: IOHEXOL 350 MG/ML 10 ML VIAL (for RAD DIAG) IV ONE (13:44)
[2016-07-16 13:45] LABS: HEMO FLAGS AUTO DIFF
[2016-07-16] MEDS ORDERED: methylPREDNISolone SOD SUCC 40 MG/1 ML VIAL IV PUSH ONE (14:00)
[2016-07-16] MEDS ORDERED: diphenhydrAMINE HCL 50 MG/ML VIAL IV PUSH ONE ×2 (14:00→14:30)
[2016-07-16 14:04] LABS: BICARBONATE 26.9 MEQ/L (21.0-32.0); POTASSIUM 3.8 MEQ/L (3.5-5.1)
--- NOTE | 2016-07-16 14:05 | RADRPT ---
EXAM DATE/TIME: 07/16/2016 13:41 [facility] COMPARISON: CT ABDOMEN W/O CONTRAST, July 07, 2016, 10:46. CT ABDOMEN & PELVIS W CONTRAST, November 23, 2015, 20:5 5. INDICATIONS : Upper abdomen pain. IV CONTRAST: 83 cc Omnipaque 350 (iohexol) IV ORAL CONTRAST: No oral contrast ingested. RADIATION DOSE: 15.70 CTDIvol (mGy) MEDICAL HISTORY : Cardiovascular disease. Hernia, bowel perferation. SURGICAL HISTORY : bowel resection iliostomy, colostomy, colostomy reversal. ENCOUNTER: Initial ACUITY: 1 day PAIN SCALE: 5/10 LOCATION: Bilateral upper quadrant TECHNIQUE: Volumetric scanning of the abdomen and pelvis was performed. Using automated exposure control and ad justment of the mA and/or kV according to patient size, radiation dose was kept as low as reasonably achievable to obtain optimal diagnostic quality images. FINDINGS: LOWER LUNGS: The visualized lower lungs are clear. LIVER: Homogeneous density without lesion. There is no dilation of the biliary tree. There are calcified s tones in the gallbladder. Mild thickening is present at the gallbladder fundus similar to the prior s tudy. SPLEEN: Normal size without lesion. PANCREAS: Within normal limits. KIDNEYS: Normal in size and shape. There is no mass, stone or hydronephrosis. There is a cyst in the right mi d kidney measuring 3 cm. ADRENAL GLANDS: Within normal limits. VASCULAR: There is no aortic aneurysm. There is mild to moderate atherosclerotic disease. BOWEL/MESENTERY: Stomach demonstrates no abnormality. Proximal small bowel is mildly distended but demonstrates no def inite abnormality. Patient's bowel anatomy is not clear. I do not see any left colon. There is some t ype of ostomy in the right mid abdomen at the anterior abdominal wall. Near the bowel which may enter the ostomy site there is extraluminal air and fecal-like material which extends to a segment of susp ected small bowel with multiple mami. The extraluminal air and fecal material collection measures 8.5 x 2.2 cm. Additionally, the segments of small bowel adjacent to the ostomy site in the right late ral abdomen demonstrates wall thickening with periventricular inflammation. There is a small volume o f free fluid. ABDOMINAL WALL: There is a right anterior abdominal wall ostomy. Subcutaneous inflammation is present. There is an an terior abdominal wall hernia in the left lower quadrant containing a short segment of small bowel. RETROPERITONEUM: There is no lymphadenopathy. BLADDER: No wall thickening or mass. However, the bladder is not well-visualized due to artifact. REPRODUCTIVE: Not well visualized due to artifact. INGUINAL: There is no lymphadenopathy or hernia. MUSCULOSKELETAL: There are degenerative changes of the lumbar spine. Left hip arthroplasty hardware causes severe beam hardening artifact. CONCLUSION: 1. There is inflamed bowel in the right midabdomen adjacent to the ostomy site. Several segments of s mall bowel demonstrate wall thickening and perienteric inflammation. There is extraluminal air and fe yemi-like material along the right anterior abdominal wall adjacent to be a segment of bowel near the ostomy site. This may be residual from the documented leak on the prior study. 2. Cholelithiasis with wall thickening of the fundus. 3. Stable left lower quadrant anterior abdominal wall hernia. Nick Dahl MD on July 16, 2016 at 13:54 Board Certified Radiologist. This report was verified electronically.
[2016-07-16 14:33] LABS: BANDS 6 % (0-6); EOSINOPHILS 2 % (0-4); METAMYELOCYTES 1 % (0-1); NEUTROPHIL # MANUAL DIFF 16.1 TH/MM3 (1.8-7.7); POLYS (SEG NEUTROPHILS) 66 % (16-70); WBC DIFF SAMPLE 100
[2016-07-16 14:34] LABS: PLATELET ESTIMATE SMEAR HIGH (NORMAL); PLATELET MORPHOLOGY NORMAL (NORMAL); SCAN/DIFF FINAL DIFF MANUAL
[2016-07-16] MEDS ORDERED: AUGM875T3 PO (15:10)
--- NOTE | 2016-07-17 15:13 | EKG ---
Date Performed: 07/16/2016 Time Performed: 13:13:36 PTAGE: 50 years EKG: SINUS TACHYCARDIA POSSIBLE RIGHT VENTRICULAR CONDUCTION DELAY Nonspecific ST wave change. W hen compared to previous tracing, heart rate is faster and ST Changes are new, but nonspecific. ABNOR MAL RHYTHM ECG PREVIOUS TRACING : 11/23/2015 18.43 DOCTOR: Wilmer Espinosa Interpretating Date/Time 07/17/2016 15:11:34
== END 2016-07-16 16:49 | disposition home or self-care (01) ==
LOC: NEPC 12:34
DX: R10.84 Generalized abdominal pain (principal); K63.2 Fistula of intestine; R00.0 Tachycardia, unspecified; D72.829 Elevated white blood cell count, unspecified; R23.8 Other skin changes; R94.31 Abnormal electrocardiogram [ECG] [EKG]; I10 Essential (primary) hypertension; E78.00 Pure hypercholesterolemia, unspecified; Z87.39 Personal history of other diseases of the musculoskeletal system and connective tissue; Z87.09 Personal history of other diseases of the respiratory system; Z86.59 Personal history of other mental and behavioral disorders; Z87.19 Personal history of other diseases of the digestive system
CPT/HCPCS: 74177; 80048; 85007; 85027; 93005; 96374; 96375; 96376; 99285; J1200; J2920; Q9967

== ENCOUNTER 2016-07-21 13:03 | Day surgery (SDC) | payer MEDICARE, OTHER ==
[~2016-07-21 13:03] MED LIST changes: +AUGM875T3 PO; -KETO10 PO
[2016-07-21 13:22] VITALS: BP 120/71; PULSE 105; RESP 20; TEMP 98.8; O2SAT 94
[2016-07-21 15:05] VITALS: BP 112/64; PULSE 91; RESP 20; O2SAT 99
--- NOTE | 2016-07-21 15:10 | PD.RAD ---
Post Procedure Progress Note Pre Procedure Diagnosis: (1) Dehydration Post Procedure Diagnosis: (1) Dehydration Procedure Date: Jul 21, 2016 Supervising Radiologist: Wily Hong Proceduralist/Assist: RT Ros(R)() Estimated blood loss: 5 ml Anesthesia: Local Plan of Activity Patient to Unit: Nursing Unit Patient Condition: Good Additional Comments: 4 english right PICC line See PACS Report for procedural detail/treatment Wily Hong MD Jul 21, 2016 15:09
[2016-07-21] MEDS ORDERED: SODIUM CHLORIDE 0.9% FLUSH 10 ML FLUSH IVF PRN ×2 (15:15)
--- NOTE | 2016-07-21 16:06 | RADRPT ---
EXAM DATE/TIME: 07/21/2016 14:55 [facility] COMPARISON: No previous studies available for comparison. INDICATIONS : IVF.Poor venous access. MEDICAL HISTORY : 1. Arthritis 2. Asthma 3. Anxiety 4. COPD 5. Panic attacks SURGICAL HISTORY : 1. Hernia repair 2. Ileostomy 3. Perforated bowel 4. Colectomy 5. Colostomy 6. Lt hip replacement ENCOUNTER: Initial ACUITY: 4-6 days PAIN SCORE: 3/10 LOCATION: mid back FLUORO TIME: 0.6 minutes IMAGE SERIES: 1 ACCESS: Right basilic vein DEVICE(S): 1.) 4 Persian single lumen 40 cm Xcela Power PICC PROCEDURE : 1. Ultrasound guidance for venous catheterization. 2. Fluoroscopic guidance. 3. Ultrasound & fluoroscopic guided central venous Power PICC line placement. The risks, benefits and alternatives to the procedure were explained and verbal and written consent w as obtained. The site was prepped in sterile fashion. Full sterile technique was used, including ca p, mask, sterile gloves and gown and a large sterile sheet. Hand hygiene and 2% chlorhexidine prep w as utilized per protocol for cutaneous antisepsis with appropriate dry time for site. The skin and s ubcutaneous tissues were infiltrated with local anesthetic solution. Under direct ultrasound guidance, a suitable vein was accessed and a measuring guidewire was introduc ed and positioned in the central venous system. The ultrasound images depicting access guidance were saved and stored to PACS for permanent record. A Power Injectable PICC line was cut to prescribed length and introduced, positioned with tip at the cavoatrial junction level. The line was flushed and secured per protocol. CONCLUSION: 1. Uncomplicated central venous Power PICC line placement. 2. The PICC line can be used immediately. Wily Hong MD on July 21, 2016 at 16:04 Board Certified Radiologist. This report was verified electronically.
[2016-07-22] MEDS ORDERED: SODIUM CHLORIDE 0.9% FLUSH 10 ML FLUSH IVF SCH (09:00)
== END 2016-07-21 15:19 | disposition home or self-care (01) ==
LOC: HROP 13:03 → HRIP 13:07 → HROP 15:19
PROVIDERS: ATTEND Surgery
DX: E86.0 Dehydration (principal); F41.9 Anxiety disorder, unspecified; J44.9 Chronic obstructive pulmonary disease, unspecified; M19.90 Unspecified osteoarthritis, unspecified site; F41.0 Panic disorder [episodic paroxysmal anxiety]; Z96.642 Presence of left artificial hip joint
CPT/HCPCS: 36569; 76937; 77001; C1751; J1642

== ENCOUNTER 2017-09-16 21:08 | Inpatient (IN) ==
[2017-09-16] MEDS ORDERED: Sod Chloride 0.9% Inj 1,000 ML IV.SIG ONE (22:44)
[2017-09-16] MEDS ORDERED: HYDROmorphone PF Inj 2 MG/ML Vial IV.PUSH ONE (22:44)
--- NOTE | 2017-09-16 22:49 | ED ---
HPI General Chief complaint: Nausea/Vomiting/Diarrhea Stated complaint: stomach pains Time Seen by Provider: 09/16/17 22:36 Source: patient Mode of arrival: ambulatory Limitations: no limitations History of Present Illness HPI Narrative: 52 yo female here for abdominal pain with N/V. Per patient started last night. Worst today and not getting better. Significant history of hernias with perforations and multiple surgeries, last one a year ago. No BM since this am. Per patient some gas. pain is 10/10. Took her normal pain meds methodone and percocet with no relief. Vomited x 1 before coming. Pain feels like a spasm. No injuries. No blood in stool. No urinary issues. Related Data Home Medications Medication Instructions Recorded Confirmed budesonide-formoterol [Symbicort] 2 puff INHALATION BID 09/17/17 09/17/17 buspirone 10 mg PO DAILY 09/17/17 09/17/17 diclofenac sodium 75 mg PO BID 09/17/17 09/17/17 hydrochlorothiazide 12.5 mg PO DAILY 09/17/17 09/17/17 methadone 20 mg PO TID 09/17/17 09/17/17 oxycodone 10 mg PO TID PRN 09/17/17 09/17/17 quetiapine [Seroquel] 50 mg PO DAILY 09/17/17 09/17/17 Allergies Allergy/AdvReac Type Severity Reaction Status Date / Time No Known Allergies Allergy Verified 09/17/17 06:41 Review of Systems ROS Unobtainable All other systems reviewed negative except as stated in [facility] Medical History Medical History HTN (hypertension) (Acute) Hernia of abdominal cavity (Acute) Surgical History Surgical History History of hip replacement (Acute) Hx of ileostomy (Acute) Social History Social History Substance History: No History of Abuse Second Hand Smoke Exposure: Yes Smoking Status: Current every day smoker Tobacco Type: Cigarettes How Often Do You Have a Drink Containing Alcohol: 2 to 4 times a month Recent Travel in [facility] within the Last 8 Weeks: No Recent Out of Country Travel within the Last 8 Weeks: No Immunization History Tetanus Immunization: Unsure Hx Influenza Vaccine This Season: No Exam Narrative Exam Narrative: GENERAL: Well appearing SKIN: Focused skin assessment warm/dry. HEAD: Atraumatic. Normocephalic. EYES: Pupils equal and round. No scleral icterus. No injection or drainage. ENT: No nasal bleeding or discharge. Mucous membranes pink and moist. NECK: Trachea midline. No JVD. CARDIOVASCULAR: Regular rate and rhythm. No murmur appreciated. RESPIRATORY: No accessory muscle use. Clear to auscultation. Breath sounds equal bilaterally. GASTROINTESTINAL: Abdomen soft, tender to the abdomen, multiple surgical scars, nondistended. Hepatic and splenic margins not palpable. MUSCULOSKELETAL: No obvious deformities. No clubbing. No cyanosis. No edema. NEUROLOGICAL: Awake and alert. No obvious cranial nerve deficits. Motor grossly within normal limits. Normal speech. PSYCHIATRIC: Appropriate mood and affect; insight and judgment normal. Course Initial Documented Vital Signs Temperature 98 F 09/16/17 21:35 Pulse Rate 74 09/16/17 21:35 Respiratory Rate 18 09/16/17 21:35 Blood Pressure 181/86 H 09/16/17 21:35 Pulse Oximetry 95 09/16/17 21:35 Last Documented Vital Signs Temperature 98.4 F 09/17/17 08:00 Pulse Rate 74 09/17/17 08:00 Respiratory Rate 17 09/17/17 08:00 Blood Pressure 158/73 H 09/17/17 08:00 Pulse Oximetry 94 L 09/17/17 08:00 Medical Decision Making MDM Narrative Medical decision making narrative: 52-year-old female for evaluation of abdominal pain. Patient was properly examined and was found to have signs and symptoms concerning for obstruction versus possible surgical disease. Case discussed with my attending Dr. Rodriguez and signed out to her pending imaging and labs that were ordered by me. IV pain medications were ordered by me. Accepted in transfer of care from [place] for follow-up of pending labs and imaging studies flat and upright abdomen limited by body habitus concerning for ileus Dr. Kessler is to be notified upon completion of evaluation Differential Diagnosis Differential Diagnosis: Obstruction versus acute abdomen versus hernia versus gas pain Medical Records Medical records reviewed: Yes I reviewed the patient's medical records. Lab Data Lab results reviewed: Yes I reviewed the patient's lab results. Result diagrams: 09/16/17 22:55 09/16/17 22:55 Lab Results 09/16/17 09/16/17 09/16/17 Range/Units 22:45 22:55 22:55 WBC 15.7 H (4.0-11.0) th/mm3 RBC 5.92 H (4.00-5.30) mil/mm3 Hgb 16.7 H (11.6-15.3) gm/dL Hct 50.3 H (35.0-46.0) % MCV 85.1 (80.0-100.0) fL MCH 28.2 (27.0-34.0) pg MCHC 33.2 (32.0-36.0) % RDW 16.3 (11.6-17.2) % Plt Count 321 (150-450) th/mm3 MPV 7.8 (7.0-11.0) fL Neut % (Auto) 90.1 H (16.0-70.0) % Lymph % (Auto) 7.4 L (9.0-44.0) % [place] % (Auto) 2.0 (0.0-8.0) % Eos % (Auto) 0.2 (0.0-4.0) % Baso % (Auto) 0.3 (0.0-2.0) % Neut # (Auto) 14.2 H (1.8-7.7) th/mm3 Lymph # (Auto) 1.2 (1.0-4.8) th/mm3 [place] # (Auto) 0.3 (0.0-0.9) th/mm3 Eos # (Auto) 0.0 (0.0-0.4) th/mm3 Baso # (Auto) 0.0 (0.0-0.2) th/mm3 WBC Differential . Differential Comment Auto diff final Sodium 138 (136-145) meq/L Potassium 4.4 (3.5-5.1) meq/L Chloride 100 (98-107) meq/L Carbon Dioxide 34.0 H (21.0-32.0) meq/L Anion Gap 4 L (5-15) meq/L BUN 17 (7-18) mg/dL Creatinine 0.96 (0.50-1.00) mg/dL Estimated GFR 61 L (>89) mL/min Random Glucose 131 H (74-106) mg/dL Lactic Acid (0.4-2.0) mmol/L Calcium 9.1 (8.5-10.1) mg/dL Total Bilirubin 0.6 (0.2-1.0) mg/dL AST 48 H (15-37) U/L ALT 32 (10-53) U/L Alkaline Phosphatase 133 H (45-117) U/L Total Protein 8.4 H (6.4-8.2) g/dL Albumin 3.4 (3.4-5.0) g/dL Lipase 53 L (73-393) U/L Urine Color Yellow (Yellw/Straw) Urine Clarity Hazy H (Clear) Urine pH 8.0 (5.0-8.5) Ur Specific [place] 1.021 (1.002-1.035) Urine Protein 30 H (Neg-Trace) mg/dL Urine Glucose (UA) Negative (Negative) mg/dL Urine Ketones Trace H (Negative) mg/dL Urine Occult Blood Small H (Negative) Urine Nitrate Negative (Negative) Urine Bilirubin Negative (Negative) Urine Urobilinogen Less than 2 (Less than 2) mg/dL Ur Leukocyte Esterase Trace H (Negative) Urine RBC 33 H (0-3) /hpf Urine WBC 2 (0-5) /hpf Ur Squamous Epith Cells 3 (0-5) /hpf Urine Bacteria Rare H (None) /hpf Micro UA Comment Culture not ind Urine Culture Comments Culture not ind 09/16/17 Range/Units 22:55 WBC (4.0-11.0) th/mm3 RBC (4.00-5.30) mil/mm3 Hgb (11.6-15.3) gm/dL Hct (35.0-46.0) % MCV (80.0-100.0) fL MCH (27.0-34.0) pg MCHC (32.0-36.0) % RDW (11.6-17.2) % Plt Count (150-450) th/mm3 MPV (7.0-11.0) fL Neut % (Auto) (16.0-70.0) % Lymph % (Auto) (9.0-44.0) % [place] % (Auto) (0.0-8.0) % Eos % (Auto) (0.0-4.0) % Baso % (Auto) (0.0-2.0) % Neut # (Auto) (1.8-7.7) th/mm3 Lymph # (Auto) (1.0-4.8) th/mm3 [place] # (Auto) (0.0-0.9) th/mm3 Eos # (Auto) (0.0-0.4) th/mm3 Baso # (Auto) (0.0-0.2) th/mm3 WBC Differential Differential Comment Sodium (136-145) meq/L Potassium (3.5-5.1) meq/L Chloride (98-107) meq/L Carbon Dioxide (21.0-32.0) meq/L Anion Gap (5-15) meq/L BUN (7-18) mg/dL Creatinine (0.50-1.00) mg/dL Estimated GFR (>89) mL/min Random Glucose (74-106) mg/dL Lactic Acid 1.7 (0.4-2.0) mmol/L Calcium (8.5-10.1) mg/dL Total Bilirubin (0.2-1.0) mg/dL AST (15-37) U/L ALT (10-53) U/L Alkaline Phosphatase (45-117) U/L Total Protein (6.4-8.2) g/dL Albumin (3.4-5.0) g/dL Lipase (73-393) U/L Urine Color (Yellw/Straw) Urine Clarity (Clear) Urine pH (5.0-8.5) Ur Specific [place] (1.002-1.035) Urine Protein (Neg-Trace) mg/dL Urine Glucose (UA) (Negative) mg/dL Urine Ketones (Negative) mg/dL Urine Occult Blood (Negative) Urine Nitrate (Negative) Urine Bilirubin (Negative) Urine Urobilinogen (Less than 2) mg/dL Ur Leukocyte Esterase (Negative) Urine RBC (0-3) /hpf Urine WBC (0-5) /hpf Ur Squamous Epith Cells (0-5) /hpf Urine Bacteria (None) /hpf Micro UA Comment Urine Culture Comments Imaging Data Radiologist's impression: Abdomen X-Ray 09/16/17 22:49 CONCLUSION: 1. Limited exam due to body habitus. 2. Somewhat nonspecific minimally dilated loops of air-filled small bowel in the inferior lower abdomen which may reflect adynamic ileus in the appropriate clinical setting. Abdomen X-Ray 09/17/17 00:00 CONCLUSION: Unremarkable study. Abdomen/Pelvis CT 09/17/17 00:00 CONCLUSION: 1. Postsurgical features of prior colectomy with 2 large mouth anterior abdominal wall hernias containing multiple loops of bowel. There are dilated fluid-filled jejunum and proximal ileum loops extending into the inferior abdominal wall hernia. Proximal transition point is not identified. Distal transition point is likely obscured by beam hardening artifact. Findings are most consistent with partial small bowel obstruction likely due to adhesions. No evidence for bowel infarction or perforation at this time. 2. Additional ancillary findings, as above. Discharge Plan Discharge Disposition Patient Disposition: 30 Still Patient Discharge Details Diagnosis: Small bowel obstruction, Ventral hernia Physicians Team ED Provider: Jacey Rodriguez ED Midlevel Provider: Sorin Shaikh Primary Care Provider: Tory Peterson Attending Provider: Saroj Kessler Discharge Interventions Interventions: ED Discharge Assessment Last Done: 09/17/17 06:07 Vital Signs Last Done: 09/17/17 01:29 Status ED Status: Left Department Discharge Information Discharge Date/Time: 09/17/17 06:05
[2017-09-16 23:28] LABS: Baso % (Auto) 0.3 % (0.0-2.0); Eos % (Auto) 0.2 % (0.0-4.0); Hematocrit 50.3 % (35.0-46.0); Hemoglobin 16.7 gm/dL (11.6-15.3); Lymph # (Auto) 1.2 th/mm3 (1.0-4.8); Lymph % (Auto) 7.4 % (9.0-44.0); Mean Corpuscular HGB Conc 33.2 % (32.0-36.0); Mean Corpuscular Hemoglobin 28.2 pg (27.0-34.0); Mean Corpuscular Volume 85.1 fL (80.0-100.0); Mean Platelet Volume 7.8 fL (7.0-11.0); Mono # (Auto) 0.3 th/mm3 (0.0-0.9); Neut # (Auto) 14.2 th/mm3 (1.8-7.7); Neut % (Auto) 90.1 % (16.0-70.0); Platelet Count 321 th/mm3 (150-450); Red Blood Count 5.92 mil/mm3 (4.00-5.30); Red Cell Distribution Width 16.3 % (11.6-17.2); White Blood Count 15.7 th/mm3 (4.0-11.0)
[2017-09-16 23:29] LABS: Bacteria,Urine Rare /hpf; Bilirubin,Urine Negative (Negative); Clarity,Urine Hazy (Clear); Color,Urine Yellow (Yellw/Straw); Glucose,Urine (UA) Negative (Negative); Leukocyte Esterase,Urine Trace (Negative); Nitrite,Urine Negative (Negative); Specific Gravity,Urine 1.021 (1.002-1.035); Squamous Epithelial Cell,Urine 3 /hpf (0-5)
--- NOTE | 2017-09-16 23:33 | XR ---
EXAM DATE: 09/16/2017 11:18 PM EDT AGE/SEX: 52 years / Female INDICATIONS: Abdominal pain with history of hernia, cat scan pending. CLINICAL DATA: This is the patient's initial encounter. Patient reports that signs and symptoms have been present for 1 day and indicates a pain score of 6/10. MEDICAL/SURGICAL HISTORY: Hypertension. Hernia Colostomy. Appendectomy. COMPARISON: [facility], CT ABDOMEN AND PELVIS W AND W/O CONTRAST, 04/12/2017. . FINDINGS: Examination is limited by patient's body habitus. Multiple loops of minimal distended air-filled smal l bowel are noted in the mid lower abdomen. No significant air-fluid levels. No gross free air. No ab normal calcifications. Degenerative changes of the lower lumbar spine with left hip arthroplasty in p lace. CONCLUSION: 1. Limited exam due to body habitus. 2. Somewhat nonspecific minimally dilated loops of air-filled small bowel in the inferior lower abdo men which may reflect adynamic ileus in the appropriate clinical setting. Electronically signed by: Wily Hong MD 09/16/2017 11:32 PM EDT
[2017-09-16 23:41] LABS: Alanine Aminotransferase 32 U/L (10-53)
[2017-09-16 23:44] LABS: Alkaline Phosphatase 133 U/L (45-117); Total Protein 8.4 g/dL (6.4-8.2)
[2017-09-17 00:04] LABS: Albumin 3.4 g/dL (3.4-5.0); Anion Gap 4 meq/L (5-15); Aspartate Aminotransferase 48 U/L (15-37); Blood Urea Nitrogen 17 mg/dL (7-18); Calcium 9.1 mg/dL (8.5-10.1); Chloride 100 meq/L (98-107); Glomerular Filtration Rate 61 mL/min (>89); Glucose,Random 131 mg/dL (74-106); Lipase 53 U/L (73-393); Sodium 138 meq/L (136-145)
[2017-09-17 00:06] LABS: Potassium 4.4 meq/L (3.5-5.1)
--- NOTE | 2017-09-17 01:32 | CT ---
EXAM DATE: 09/17/2017 1:06 AM EDT AGE/SEX: 52 years / Female INDICATIONS: Abdomen pain with nausea and vomiting. CLINICAL DATA: This is the patient's initial encounter. Patient reports that signs and symptoms have been present for 1 day and indicates a pain score of 10/10. MEDICAL/SURGICAL HISTORY: . Hernia,s Colon resection. Colostomy. Ileostomy ORAL CONTRAST: No oral contrast ingested. RADIATION DOSE: 29.66 CTDI (mGy) ; Patient body habitus COMPARISON: [facility], CT ABDOMEN AND PELVIS W AND W/O CONTRAST, 04/12/2017 and 10/17/2015. . TECHNIQUE: Multiple contiguous axial images were obtained through the abdomen and pelvis following b olus infusion of 95 ml Omnipaque 350 (iohexol) nonionic water-soluble contrast as a single exam dos e. No oral contrast ingested. Using automated exposure control and adjustment of the mA and/or kV ac cording to patient size, radiation dose was kept as low as reasonably achievable to obtain optimal di agnostic quality images. DICOM format image data is available electronically for review and comparis on. FINDINGS: LOWER LUNGS: The visualized lower lungs are clear. LIVER: The liver has a homogeneous density without space-occupying lesion. There is no dilation of t he biliary tree. There is a focal isodense region containing calcifications likely abutting the infer ior margin of the liver which corresponds to heterogeneous but primarily hypodense abnormality in the same region. Suspect this may reflect a small chronic hematoma. Redemonstration of multiple small ga llstones in the gallbladder. SPLEEN: Homogeneous density without enlargement. PANCREAS: Unremarkable without mass or calcification. KIDNEYS: Multiple primarily subcentimeter hypodense cystic lesions in the kidneys which are too smal l to fully characterize. A dominant 2.5 cm indeterminate hypodense lesion in the mid right kidney is stable from 2016 CT exam. No radiopaque renal calculi. No hydronephrosis. ADRENAL GLANDS: Unremarkable. AORTA: Justyna-aneurysmal. BOWEL/MESENTERY: Postsurgical features of right and transverse hemicolectomy with anastomosis in the mid abdomen. There are 2 large mouth anterior abdominal wall hernias containing multiple loops of sandrita wel. The stomach and very proximal jejunal bowel loops are not distended. There are multiple loops of distended fluid-filled jejunum and proximal ileum in the inferior mid abdomen which also extend to t he inferior anterior abdominal wall hernia. There is no definitive proximal transition point. Distal transition point is likely obscured by beam hardening artifact from patient's left hip arthroplasty. There are however distal loops of ileum that are decompressed. There is no significant pneumatosis. N o free air or drainable fluid collections. ABDOMINAL WALL: Intact. RETROPERITONEUM: No evidence of adenopathy in the retrocrural, para-aortic, or deep pelvic regions. BLADDER: Decompressed. REPRODUCTIVE: No abnormal masses or calcifications seen. BONY STRUCTURES: Unremarkable. CONCLUSION: 1. Postsurgical features of prior colectomy with 2 large mouth anterior abdominal wall hernias conta ining multiple loops of bowel. There are dilated fluid-filled jejunum and proximal ileum loops extend ing into the inferior abdominal wall hernia. Proximal transition point is not identified. Distal espinosa sition point is likely obscured by beam hardening artifact. Findings are most consistent with partial small bowel obstruction likely due to adhesions. No evidence for bowel infarction or perforation at this time. 2. Additional ancillary findings, as above. Electronically signed by: Wily Hong MD 09/17/2017 1:30 AM EDT
[2017-09-17] MEDS ORDERED: HYDROmorphone PF Inj 2 MG/ML Vial IV.PUSH ONE (03:20)
[2017-09-17] MEDS ORDERED: Pantoprazole Inj 40 MG Vial IV.PUSH SCH (04:00)
[2017-09-17] MEDS: Sod Chloride 0.9% Inj 1,000 ML IV.CONT SCH ×4 (04:26→20:35)
[2017-09-17] MEDS: QUEtiapine 25 MG Tablet PO SCH (08:27)
[2017-09-17] MEDS: HYDROmorphone PF Inj 2 MG/ML Vial IV.PUSH PRN ×4 (08:28→20:34)
--- NOTE | 2017-09-17 09:39 | P.HPGS ---
History of Present Illness Primary Care Physician: Tory Peterson MD History of Present Illness: 52 yo F well known to our service after laparotomy for strangulated LLQ hernia with sigmoid resection and perforated cecum. She is s/p ostomy reversals during the last year and has developed large ventral hernia. She developed abdominal pain, bloating, and emesis yesterday and the inferior portion of her abdomen felt firm. She called and I recommended to present to the ED. In the ED she was noted to have significant pain, leukocytosis, and CT a/p concerning for at least partial obstruction. NGT placed. She feels slightly improved this am and did have a bowel movt last night. - Diagnosis (1) Small bowel obstruction (2) Ventral hernia Inpatient Certification: I certify that the inpatient services were ordered in accordance with Medicare regulations governing the order. This includes certification that hospital inpatient services are reasonable and necessary and in the case of services not specified as inpatient-only under 42 CFR 419.22(n), that they are appropriately provided as inpatient services in accordance to with the 2-midnight benchmark under 43 CFR 412.3(e) Estimated Total Length of Stay (Days): 3 Plans for Post Hospital Care: Home [facility] [place] - History History Provided By: Patient - Medical History Medical History: Medical History (Last Updated 09/17/17 @ 06:42 by Celi Lal RN) HTN (hypertension) Hernia of abdominal cavity - Surgical History Surgical History: Surgical History (Last Updated 09/19/17 @ 08:17 by Saroj Kessler MD) H/O colectomy History of hip replacement Hx of ileostomy - Tobacco History Second Hand Smoke Exposure: Yes Tobacco Use In Past 30 Days: Yes Smoking Status: Current every day smoker Tobacco Type: Cigarettes - Alcohol History How Often Do You Have a Drink Containing Alcohol: 2 to 4 times a month - Substance Use History Substance History: No History of Abuse - Travel History Recent Travel in the [place] Within the Last 8 Weeks: No Recent Travel Out of the Country Within the Last 8 Weeks: No - Immunization History Tetanus Immunization: Unsure Hx Influenza Vaccine This Season: No Medications and Allergies Active Medications: Active Medications Budesonide/Formoterol Fumarate (Symbicort 80/4.5 Mcg Inh) 2 puff INH BID FELIPE Hydromorphone HCl (Dilaudid Pf Inj) 1 mg IV.PUSH Q2H PRN PRN Reason: PAIN SCALE 1 TO 10 Last Admin: 09/17/17 08:28 Dose: 1 mg Sodium Chloride (Ns Inj) 1,000 mls @ 125 mls/hr IV.CONT .Q8H [facility] Last Admin: 09/17/17 04:26 Dose: 125 mls/hr Ondansetron HCl (Zofran Odt) 4 mg PO Q6H PRN PRN Reason: NAUSEA Pantoprazole Sodium (Protonix Inj) 40 mg IV.PUSH Q24HR [facility] Quetiapine Fumarate (Seroquel) 50 mg PO DAILY [facility] Last Admin: 09/17/17 08:27 Dose: 50 mg Allergies Allergy/AdvReac Type Severity Reaction Status Date / Time No Known Allergies Allergy Verified 09/17/17 06:41 Home Medications Medication Instructions Recorded Confirmed Type budesonide-formoterol [Symbicort] 2 puff INHALATION BID 09/17/17 09/17/17 History buspirone 10 mg PO DAILY 09/17/17 09/17/17 History diclofenac sodium 75 mg PO BID 09/17/17 09/17/17 History hydrochlorothiazide 12.5 mg PO DAILY 09/17/17 09/17/17 History methadone 20 mg PO TID 09/17/17 09/17/17 History oxycodone 10 mg PO TID PRN 09/17/17 09/17/17 History quetiapine [Seroquel] 50 mg PO DAILY 09/17/17 09/17/17 History Exam Vital signs: Vital Signs 09/16/17 21:35 09/17/17 01:23 09/17/17 01:29 Temperature 98 F Pulse Rate 74 90 Respiratory Rate 18 5 L 17 Blood Pressure 181/86 H 160/72 H Pulse Oximetry 95 97 09/17/17 06:18 09/17/17 07:06 09/17/17 08:00 Temperature 98.2 F 98.4 F Pulse Rate 87 74 Respiratory Rate 18 18 17 Blood Pressure 169/78 H 158/73 H Pulse Oximetry 95 94 L Intake & Output 09/16/17 09/17/17 09/17/17 18:59 06:59 18:59 Intake Total 0 / 0 Balance 0 / 0 Weight 83.7 kg Intake: Oral 0 / 0 Other: Date of Last Bowel Movement 09/16/17 Weight On Admission 83.7 kg - Constitutional no acute distress, obese - Routine HEENT Exam Head: Present: normocephalic, atraumatic - Routine Neck Exam Present: supple, full ROM - Routine Respiratory Exam Absent: accessory muscle use, respiratory distress - Routine Cardiovascular Exam Present: RRR - Routine Abdominal Exam Comments: large ventral hernia, skin very thin overlying bowel in a couple of areas, mild lower abdominal tenderness at hernia site, no rebound or guarding - Routine Extremities Exam Absent: cyanosis - Routine Skin Exam Present: intact. Absent: cyanosis, erythema Results - Results CT scan - abdomen: report reviewed, image reviewed CT scan - pelvis: report reviewed, image reviewed Caprini VTE Risk Assessment Caprini VTE Risk Assessment: No/Low Risk (score <= 1) Caprini Risk Assessment Model: Point Value = 1 Point Value = 2 Point Value = 3 Point Value = 5 Age 41-60 Minor surgery BMI > 25 kg/m2 Swollen legs Varicose veins or History of unexplained or recurrent spontaneous Oral contraceptives or hormone replacement Sepsis (< 1 month) Serious lung disease, including pneumonia (< 1 month) Abnormal pulmonary function Acute myocardial infarction Congestive heart failure (< 1 month) History of inflammatory bowel disease Medical patient at bed rest Age 61-74 Arthroscopic surgery Major open surgery (> 45 min) Laparoscopic surgery (> 45 min) Malignancy Confined to bed (> 72 hours) Immobilizing plaster cast Central venous access Age >= 75 History of VTE Family history of VTE Factor V Leiden Prothrombin [id number] Lupus anticoagulant Anticardiolipin antibodies Elevated serum homocysteine Heparin-induced thrombocytopenia Other congenital or acquired thrombophilia Stroke (< 1 month) Elective arthroplasty Hip, pelvis, or leg fracture Acute spinal cord injury (< 1 month) Prophylaxis Regimen: Total Risk Factor Score Risk Level Prophylaxis Regimen 0-1 Low Early ambulation 2 Moderate Order ONE of the following: *Sequential Compression Device (SCD) *Heparin 5000 units SQ BID 3-4 Higher Order ONE of the following medications: *Heparin 5000 units SQ TID *Enoxaparin/Lovenox 40 mg SQ daily (WT < 150 kg, CrCl > 30 mL/min) *Enoxaparin/Lovenox 30 mg SQ daily (WT < 150 kg, CrCl > 10-29 mL/min) *Enoxaparin/Lovenox 30 mg SQ BID (WT < 150 kg, CrCl > 30 mL/min) AND/OR *Sequential Compression Device (SCD) 5 or more Highest Order ONE of the following medications: *Heparin 5000 units SQ TID (Preferred with Epidurals) *Enoxaparin/Lovenox 40 mg SQ daily (WT < 150 kg, CrCl > 30 mL/min) *Enoxaparin/Lovenox 30 mg SQ daily (WT < 150 kg, CrCl > 10-29 mL/min) *Enoxaparin/Lovenox 30 mg SQ BID (WT < 150 kg, CrCl > 30 mL/min) AND *Sequential Compression Device (SCD) Assessment and Plan - Assessment (1) Small bowel obstruction Code(s): K56.609 - Unspecified intestinal obstruction, unspecified as to partial versus complete obstruction Status: Acute (2) Ventral hernia Code(s): K43.9 - Ventral hernia without obstruction or gangrene Status: Acute Qualifiers: Obstruction and gangrene presence: without obstruction or gangrene Qualified Code(s): K43.9 - Ventral hernia without obstruction or gangrene - Plan 52 yo F with complex abdominal surgical history with loss of abdominal domain now with partial bowel obstruction. Attempted conservative treatment of this bowel obstruction. Check labs in am. KUB now. Cont NGT and IVF. H&P: Quality - VTE Deep Vein Thrombosis/Pulmonary Embolism Present on Admission: No
--- NOTE | 2017-09-17 10:30 | XR ---
EXAM DATE: 09/17/2017 10:15 AM EDT AGE/SEX: 52 years / Female INDICATIONS: Evaluate for obstruction CLINICAL DATA: This is the patient's subsequent encounter. Patient reports that signs and symptoms h ave been present for 2 days and indicates a pain score of 4/10. MEDICAL/SURGICAL HISTORY: . Hernia,s . Colon resection. Colostomy. Ileostomy COMPARISON: No prior exams available for comparison. FINDINGS: The bowel gas is nonspecific. There are no signs of obstruction or free air for technique. No definite calcified stones are identified for technique. NG tube is present with tip in the stoma ch. CONCLUSION: Unremarkable study. Electronically signed by: Taz Dewitt MD 09/17/2017 10:29 AM EDT
[2017-09-17] MEDS: Budesonide-Formoterol 80/4.5 MCG 6.9 GM Inhaler INH SCH ×2 (13:02→20:35)
[2017-09-18] MEDS: HYDROmorphone PF Inj 2 MG/ML Vial IV.PUSH PRN ×12 (00:03→23:54)
[2017-09-18] MEDS: Sod Chloride 0.9% Inj 1,000 ML IV.CONT SCH ×2 (04:12→11:35)
[2017-09-18 07:08] LABS: Baso % (Auto) 0.5 % (0.0-2.0); Eos # (Auto) 0.2 th/mm3 (0.0-0.4); Hematocrit 42.1 % (35.0-46.0); Hemoglobin 13.9 gm/dL (11.6-15.3); Lymph % (Auto) 25.7 % (9.0-44.0); Mean Corpuscular HGB Conc 32.9 % (32.0-36.0); Mean Corpuscular Hemoglobin 28.3 pg (27.0-34.0); Mean Corpuscular Volume 85.8 fL (80.0-100.0); Mean Platelet Volume 7.3 fL (7.0-11.0); Mono # (Auto) 0.9 th/mm3 (0.0-0.9); Mono % (Auto) 11.5 % (0.0-8.0); Neut # (Auto) 4.6 th/mm3 (1.8-7.7); Neut % (Auto) 59.3 % (16.0-70.0); Platelet Count 225 th/mm3 (150-450); Red Cell Distribution Width 16.6 % (11.6-17.2); White Blood Count 7.8 th/mm3 (4.0-11.0)
[2017-09-18 08:02] LABS: Calcium 8.1 mg/dL (8.5-10.1); Potassium 3.2 meq/L (3.5-5.1)
[2017-09-18] MEDS: QUEtiapine 25 MG Tablet PO SCH ×2 (08:43→09:17)
[2017-09-18] MEDS: Budesonide-Formoterol 80/4.5 MCG 6.9 GM Inhaler INH SCH ×2 (08:44→20:03)
[2017-09-19] MEDS: HYDROmorphone PF Inj 2 MG/ML Vial IV.PUSH PRN ×5 (02:22→14:44)
[2017-09-19] MEDS: Sod Chloride 0.9% Inj 1,000 ML IV.CONT SCH ×2 (06:28→11:24)
[2017-09-19] MEDS: QUEtiapine 25 MG Tablet PO SCH (10:10)
[2017-09-19] MEDS: Budesonide-Formoterol 80/4.5 MCG 6.9 GM Inhaler INH SCH (10:11)
--- NOTE | 2017-09-19 13:04 | P.PNGS ---
Subjective Patient reports: no new complaints, feels better, pain is less, tolerating liquids well, voiding w/o difficulty, flatus Physical Exam Vital signs: Vital Signs 09/18/17 16:00 09/18/17 16:58 09/18/17 20:00 Temperature 98.2 F 98.4 F Pulse Rate 92 H 94 H Respiratory Rate 18 16 18 Blood Pressure 171/92 H 177/92 H Pulse Oximetry 95 95 09/19/17 00:00 09/19/17 04:00 09/19/17 06:00 Temperature 97.9 F 97.9 F Pulse Rate 78 88 Respiratory Rate 18 18 16 Blood Pressure 187/82 H 150/74 H Pulse Oximetry 94 L 94 L 09/19/17 10:34 09/19/17 11:29 Temperature 98.4 F 97.9 F Pulse Rate 91 H 97 H Respiratory Rate 18 17 Blood Pressure 157/91 H 138/82 Pulse Oximetry 94 L 92 L Intake & Output 09/18/17 09/19/17 09/19/17 18:59 06:59 18:59 Intake Total 1000 / 1000 1000 / 1000 Output Total 175 / 175 Balance 825 / 825 1000 / 1000 Weight 84.2 kg Intake: IV 1000 / 1000 1000 / 1000 NS Inj 1,000 ML @ 125 mls/hr IV 1000 / 1000 1000 / 1000 .CONT .Q8H [facility] Rx#:[id number] Output: Gastric Drainage 175 / 175 Right Nare Nasogastric Tube 175 / 175 Other: Date of Last Bowel Movement 09/18/17 09/19/17 # Bowel Movements 1 1 - Constitutional no acute distress - Routine Abdominal Exam Present: soft, normoactive bowel sounds Assessment and Plan - Assessment (1) Small bowel obstruction Code(s): K56.609 - Unspecified intestinal obstruction, unspecified as to partial versus complete obstruction Status: Acute Plan: The small bowel obstruction is now resolved. Her abdomen is completely benign and she is passing flatus as well as tolerating a full liquid diet as well as soft foods at times. She will be discharged today to be seen on a as needed basis. I have given her clearance for all activities and diet as tolerated. (2) Ventral hernia Code(s): K43.9 - Ventral hernia without obstruction or gangrene Status: Acute (2) Ventral hernia Qualifiers: Obstruction and gangrene presence: without obstruction or gangrene Qualified Code(s): K43.9 - Ventral hernia without obstruction or gangrene
== END 2017-09-19 15:02 | disposition home or self-care (01) ==
LOC: NEPC 21:08 → NEDA 09-17 03:18 → N06 09-17 06:10
PROVIDERS: ADMIT Surgery; ATTEND Surgery
DX: K43.6 Other and unspecified ventral hernia with obstruction, without gangrene